=== PATIENT | female | born 1985 | race Caucasian/White ===

== ENCOUNTER → 2016-09-03 | Outpatient (CLI) | payer MEDICAID | LOC: MW.CHUR 11:38 | PROVIDERS: ATTEND Urology | DX: R33.9 Retention of urine, unspecified (principal); R39.15 Urgency of urination | CPT/HCPCS: 81001; 87086 ==

== ENCOUNTER → 2016-09-15 | Outpatient (CLI) | payer MEDICAID | LOC: MW.CHUR 13:10 | PROVIDERS: ATTEND Urology | DX: R32 Unspecified urinary incontinence (principal); R39.15 Urgency of urination | CPT/HCPCS: 81001; 87086 ==

== ENCOUNTER 2016-09-23 06:42 | Observation (INO) | payer MEDICAID ==
[~2016-09-23 06:42] MED LIST: Lactated Ringers 1,000 ML IV SCH; ceFAZolin 2 GM in Premix Bag 1 BAG IV ONE
[2016-09-23] MEDS ORDERED: Lidocaine 2% 5 ML SDV ONE (07:23)
[2016-09-23] MEDS ORDERED: Propofol 200 MG/20 ML SDV ONE (07:23)
[2016-09-23] MEDS ORDERED: fentaNYL 250 MCG/5 ML SDV ONE (07:24)
[2016-09-23] MEDS ORDERED: Midazolam 1 MG/ML 2 ML SDV ONE (07:24)
[2016-09-23] MEDS ORDERED: fentaNYL 100 MCG/2 ML SDV ONE ×2 (07:24→09:55)
[2016-09-23] MEDS ORDERED: Rocuronium 10 MG/ML 10 ML Syringe ONE (07:26)
[2016-09-23] MEDS ORDERED: Ketorolac 30 MG/ML SDV ONE (07:26)
[2016-09-23] MEDS ORDERED: Ondansetron 4 MG/2 ML SDV ONE (07:26)
[2016-09-23] MEDS ORDERED: Neostigmine Methylsulfate 1 MG/ML 5 ML Syringe ONE (07:26)
[2016-09-23] MEDS ORDERED: Scopolamine 1.5 MG Transdermal Patch TRDERM PRN (07:29)
--- NOTE | 2016-09-23 07:29 | PCM.PREANE ---
Preanesthetic Assessment - Anesthesia/Transfusion/Family Hx Anesthesia History: Prior Anesthesia Reaction Type of Anesthesia Reaction: Excessive Nausea/Vomiting Other Type of Anesthesia Reaction Comment: Reports prior history of Nausea with Anesthesia Family History of Anesthesia Reaction: No Transfusion History: No Prior Transfusion(s) - Review of Systems General: No Symptoms Pulmonary: No Symptoms Cardiovascular: No Symptoms Gastrointestinal: No symptoms Neurological: No Symptoms Other: Reports: None - Physical Assessment NPO Status Date: 09/22/16 O2 Sat by Pulse Oximetry: 98 Respiratory Rate: 16 Vital Signs: Last Vital Signs Temp 37.2 C 09/23/16 07:21 Pulse 92 09/23/16 07:21 Resp 16 09/23/16 07:21 BP 110/69 09/23/16 07:21 Pulse Ox 98 09/23/16 07:21 Height: 1.73 m Weight: 90.718 kg ASA Class: 2 Mental Status: Alert & Oriented x3 Airway Class: Mallampati = 2 Dentition: Reports: Normal Dentition ROM/Head Extension: Full Lungs: Clear to auscultation, Normal respiratory effort Cardiovascular: Regular Rate, Regular Rhythm - Allergies Allergies/Adverse Reactions: Allergies Allergy/AdvReac Type Severity Reaction Status Date / Time latex Allergy Severe Hives Verified 05/30/16 14:14 nickel [Nickel] Allergy Severe Rash Verified 05/30/16 14:14 oxycodone [Oxycodone] Allergy Severe Itching Verified 05/30/16 14:14 oxycodone HCl [From Percocet] Allergy Severe Itching Verified 05/30/16 14:14 propoxyphene napsylate Allergy Severe Itching Verified 05/30/16 14:14 [From Darvocet-N 100] terconazole [From Terazol 3] Allergy Severe Swelling Verified 05/30/16 14:14 glatiramer acetate Allergy Hives Verified 05/30/16 14:14 [From Copaxone] morphine Allergy Itching Verified 05/30/16 14:14 tioconazole Allergy Itching Verified 05/30/16 14:14 [From Monistat 1 (tioconazole)] - Blood Blood Available: No - Anesthesia Plan Pre-Op Medication Ordered: Other (scop patch) - Acknowledgements Anesthesia Type Planned: General Anesthesia Pt an Appropriate Candidate for the Planned Anesthesia: Yes Alternatives and Risks of Anesthesia Discussed w Pt/Guardian: Yes Pt/Guardian Understands and Agrees with Anesthesia Plan: Yes Additional Comments: hx of tachyarrythmia, workup revealed episodes of sinus tach, has migraines, and /depression. exercise induced asthma, Does not carry a diagnosis of MS. Has LATEX allergy. 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, Sophia reports history of Exercise Induced Asthma Gastrointestinal History: Reports: None Genitourinary History: Reports: UTI, Recurrent COUNTY ATTORNEY History: Reports: 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, Other OB/BYN History: - 3 Musculoskeletal History: Reports: None Neurological History: Reports: Migraines Psychiatric History: Reports: Anxiety, Depression Endocrine/Metabolic History: Reports: None Hematologic History: Reports: None Immunologic History: Reports: None Oncologic (Cancer) History: Reports: None Dermatologic History: Reports: None - Infectious Disease History Infectious Disease History: Reports: None - Past Surgical History Head Surgeries/Procedures: Reports: None HEENT Surgical History: Reports: Adenoidectomy, Tonsillectomy Cardiovascular Surgical History: Reports: None Other Cardiovascular Surgeries/Procedures: internal heart monitor in on Apr 07 2016 for sinus tachycardia Respiratory Surgical History: Reports: None GI Surgical History: Reports: Appendectomy, Cholecystectomy Other GI Surgeries/Procedures: Lap Cholecystectomy Female Surgical History: Reports: Hysterectomy, LEEP, Other (See Below) Other Female Surgeries/Procedures: "Partial hysterectomy", Bladder mesh surgery x2 Endocrine Surgical History: Reports: None Neurological Surgical History: Reports: None Musculoskeletal Surgical History: Reports: Carpal Tunnel, Other (See Below) Other Musculoskeletal Surgeries/Procedures:: trigger finger rt thumb release, ollie carpal tunnel Oncologic Surgical History: Reports: None Dermatological Surgical History: Reports: None - History Comment History Comment: etoh "2x a year" - SUBSTANCE USE Smoking Status *Q: Never Smoker Second Hand Smoke Exposure: No Days Per Week of Alcohol Use: 0 Number of Drinks Per Day: 0 Total Drinks Per Week: 0 Recreational Drug Use History: No - HOME MEDS Home Medications: Home Meds traZODone HCl [Trazodone HCl] 300 mg PO BEDTIME 12/21/15 [History] Nitrofurantoin Monohyd/M-Cryst [Macrobid 100 mg Capsule] 1 tab PO DAILY PRN [History] Venlafaxine [Effexor] 50 mg PO DAILY 09/18/16 [History] Venlafaxine [Effexor] 225 mg PO DAILY 09/18/16 [History] - CURRENT (IN HOUSE) MEDS Current Meds: Current Medications Lactated Ringer's (Ringers, Lactated) 1,000 mls @ 100 mls/hr IV ASD[facility]RECTED [facility] Last Admin: 09/23/16 07:01 Dose: 100 mls/hr Discontinued Medications Cefazolin Sodium/Dextrose 2 gm (/ Premix) 50 mls @ 100 mls/hr IV ONCALL ONE Stop: 09/23/16 00:34
[2016-09-23] MEDS ORDERED: Gentamicin 40 MG/ML 2 ML Vial ONE (07:42)
[2016-09-23] MEDS ORDERED: Bupivacaine 0.5% 30 ML SDV ONE (07:42)
[2016-09-23] MEDS ORDERED: ePHEDrine 50 MG/ML SDV ONE (09:01)
[2016-09-23] MEDS ORDERED: Lactated Ringers 1,000 ML IV SCH (11:00)
[2016-09-23] MEDS ORDERED: ceFAZolin 1 GM in Premix Bag 1 BAG IV SCH (11:00)
[2016-09-23] MEDS: fentaNYL 100 MCG/2 ML SDV IVPUSH PRN ×4 (11:33→12:16)
[2016-09-23] MEDS ORDERED: HYDROmorphone 2 MG/ML Syringe IVPUSH ONE (11:40)
--- NOTE | 2016-09-23 12:29 | PCM.POSTAN ---
POST ANESTHESIA ASSESSMENT - MENTAL STATUS Mental Status: alert, oriented - RESPIRATORY Respiratory Status: respiratory rate WNL, airway patent, O2 saturation stable - CARDIOVASCULAR CV Status: pulse rate WNL, blood pressure stable - GASTROINTESTINAL GI Status: no symptoms - POST OP HYDRATION Hydration Status: adequate & stable
[2016-09-23] MEDS: Acetaminophen/HYDROcodone 325-10 MG Tab PO PRN ×2 (14:11→21:28)
--- NOTE | 2016-09-23 14:35 | OR ---
SURGEON: Dashawn Lundy M.D. DATE OF PROCEDURE: 09/23/2016 PREOPERATIVE DIAGNOSIS: Recurrent stress urinary incontinence. POSTOPERATIVE DIAGNOSIS: Recurrent stress urinary incontinence. OPERATION: Retropubic bladder neck suspension. DESCRIPTION OF PROCEDURE: The patient was given general anesthesia, placed in the frog-leg position. The lower abdomen, genital area, and the vaginal were all prepped, painted, and draped. A catheter was placed in the bladder. The previous Pfannenstiel incision was opened. The fascia was opened in the midline. The retropubic space was dissected taking extra care not to enter the bladder or damage the urethra. All that appeared as adhesions were taken down. The suspension was done using #1 chromic sutures, three on the right side, one on the left, lessening of the endopelvic fascia and suturing it to the iliopubic tract. The fascia was then closed using a running #1 Maxon suture. The subcutaneous tissues were reapproximated with 3-0 chromic. Skin was closed with 3-0 subcuticular nylon. Cystoscopy was done at the end of the procedure. There were no sutures inside her bladder. Her bladder appears to be in a good and satisfactory position. LETICIA / PEEWEE /[id number]
[2016-09-23] MEDS: ceFAZolin 1 GM in Premix Bag 1 BAG IV SCH ×2 (15:58→23:38)
[2016-09-23] MEDS ORDERED: Acetaminophen/HYDROcodone 325-10 MG Tab PO ONE (17:15)
[2016-09-23] MEDS ORDERED: traZODone 50 MG Tab PO SCH (22:00)
[2016-09-23] MEDS: Acetaminophen 325 MG Tab PO PRN (22:05)
[2016-09-23] MEDS ORDERED: diphenhydrAMINE 50 MG/ML SDV IVPUSH ONE (23:21)
--- NOTE | 2016-09-24 01:07 | PCM48HPAN ---
Post Anesthesia Note - EVALUATION WITHIN 48HRS OF ANESTHETIC Vital Signs in Normal Range: Yes Patient Participated in Evaluation: Yes Respiratory Function Stable: Yes Airway Patent: Yes Cardiovascular Function Stable: Yes Hydration Status Stable: Yes Pain Control Satisfactory: Yes Nausea and Vomiting Control Satisfactory: Yes Mental Status Recovered: Yes
[2016-09-24] MEDS: Acetaminophen/HYDROcodone 325-10 MG Tab PO PRN ×2 (04:38→09:27)
[2016-09-24] MEDS: Acetaminophen 325 MG Tab PO PRN (07:00)
[2016-09-24 08:40] VITALS: BP 101/58
[2016-09-24] MEDS ORDERED: Venlafaxine 75 MG Cap.ER PO SCH (09:00)
[2016-09-24] MEDS ORDERED: diphenhydrAMINE 50 MG Cap PO ONE (10:52)
[2016-09-24] MEDS ORDERED: Ondansetron 4 MG Tab.DIS PO ONE (10:53)
--- NOTE | 2016-09-25 02:29 | DISCH ---
DATE OF DISCHARGE: 09/24/2016 PRIMARY CARE PHYSICIAN: Deja Zavala NP HOSPITAL COURSE: A 30-year-old. She had retropubic bladder neck suspension for persistent urinary incontinence confirmed with Rc test at the office after a failed sling and a failed previous retropubic bladder neck suspension. Evaluation in the office showed minimal residual urine and clear leaking on coughing in both the supine and upright positions. Pushing the neck of the bladder forward without putting pressure on the neck itself stopped the leaking. She had a procedure done yesterday, which she tolerated well. Postoperatively, she did be very well, remained stable. She is sent home on Pyridium to help mitigate the occasional bladder pain. She was sent home on Lorcet 15/325 every 4 to 6 hours as needed for pain and Keflex 500 three times a day for the next 5 days. She will be seen in the office in 6 days. The Cohen catheter will be taken out. In the past, at least the first time after the sling procedure, she engaged in what she described as vigorous sexual activity the same day or the following day, and I suspect that is what caused the failure of the first procedure. She has been instructed at no heavy lifting and no sexual activity for the next 6 weeks. LETICIA / PEEWEE /[id number]
== END 2016-09-24 11:30 | disposition home or self-care (01) ==
LOC: MW.SDS 06:42 → MW.MS 10:40
PROVIDERS: ADMIT Urology; ATTEND Urology
DX: N39.3 Stress incontinence (female) (male) (principal); J45.990 Exercise induced bronchospasm; G43.909 Migraine, unspecified, not intractable, without status migrainosus; F41.9 Anxiety disorder, unspecified; F32.9 Major depressive disorder, single episode, unspecified; Z87.440 Personal history of urinary (tract) infections; Z79.1 Long term (current) use of non-steroidal anti-inflammatories (NSAID); Z79.899 Other long term (current) drug therapy; Z91.040 Latex allergy status; Z88.8 Allergy status to other drugs, medicaments and biological substances; Z88.5 Allergy status to narcotic agent; Z90.49 Acquired absence of other specified parts of digestive tract; Z98.890 Other specified postprocedural states; Z90.710 Acquired absence of both cervix and uterus
CPT/HCPCS: 36415; 51841; 80051; 85025; 96365; 96375; A9270; G0378; J0690; J1200; J1580; J1885; J2250; J2405; J3010; J7120; 00860; J2704

== ENCOUNTER 2016-11-13 03:52 | Emergency (ER) | payer MEDICAID ==
[2016-11-13] MEDS ORDERED: diphenhydrAMINE 50 MG/ML SDV IVPUSH ONE (04:04)
[2016-11-13] MEDS ORDERED: Sodium Chloride 0.9% 1,000 ML IV ONE (04:04)
[2016-11-13] MEDS ORDERED: Ondansetron 4 MG/2 ML SDV IVPUSH ONE (04:04)
[2016-11-13] MEDS ORDERED: Metoclopramide 10 MG/2 ML SDV IVPUSH ONE (04:04)
[2016-11-13] MEDS ORDERED: Ketorolac 30 MG/ML SDV IVPUSH ONE (04:04)
--- NOTE | 2016-11-13 05:34 | EDM.PDOC ---
ED HPI GENERAL MEDICAL PROBLEM - General Chief Complaint: Headache Stated Complaint: HEADACHE Time Seen by Provider: 11/13/16 05:31 - History of Present Illness INITIAL COMMENTS - FREE TEXT/NARRATIVE: HISTORY AND PHYSICAL: History of present illness: Patient states 31-year-old white female with history of migraine headaches presents with concerns of migraine headache patient states she has photophobia nausea denies vomiting denies trauma fever chills or other complaints Review of systems: As per history of present illness and below otherwise all systems reviewed and negative. Past medical history: As per history of present illness and as reviewed below otherwise noncontributory. Surgical history: As per history of present illness and as reviewed below otherwise noncontributory. Social history: No reported history of drug or alcohol abuse. Family history: As per history of present illness and as reviewed below otherwise noncontributory. Physical exam: HEENT: Atraumatic, normocephalic, pupils reactive, negative for conjunctival pallor or scleral icterus, mucous membranes moist, throat clear, neck supple, nontender, trachea midline. Lungs: Clear to auscultation, breath sounds equal bilaterally, chest nontender. Heart: S1S2, regular, negative for clicks, rubs, or JVD. Abdomen: Soft, nondistended, nontender. Negative for masses or hepatosplenomegaly. Negative for costovertebral tenderness. Pelvis: Stable nontender. Genitourinary: Deferred. Rectal: Deferred. Extremities: Atraumatic, negative for cords or calf pain. Neurovascular unremarkable. Neuro: Awake, alert, oriented. Cranial nerves II through XII unremarkable. Cerebellum unremarkable. Motor and sensory unremarkable throughout. Exam nonfocal. Diagnostics: None Therapeutics: Normal saline 1 L bolus Franklin 30 mg IV Zofran 4 mg IV Benadryl 50 mg IV Reglan 10 mg IV Impression: #1 migraine headache Definitive disposition and diagnosis as appropriate pending reevaluation and review of above. Headache Pain Score (Numeric/FACES): 9 - Related Data Allergies Allergy/AdvReac Type Severity Reaction Status Date / Time latex Allergy Severe Hives Verified 11/13/16 03:55 nickel [Nickel] Allergy Severe Rash Verified 11/13/16 03:55 oxycodone [Oxycodone] Allergy Severe Itching Verified 11/13/16 03:55 oxycodone HCl [From Percocet] Allergy Severe Itching Verified 11/13/16 03:55 propoxyphene napsylate Allergy Severe Itching Verified 11/13/16 03:55 [From Darvocet-N 100] terconazole [From Terazol 3] Allergy Severe Swelling Verified 11/13/16 03:55 adhesive tape Allergy Itching Verified 11/13/16 03:55 glatiramer acetate Allergy Hives Verified 11/13/16 03:55 [From Copaxone] morphine Allergy Itching Verified 11/13/16 03:55 tioconazole Allergy Itching Verified 11/13/16 03:55 [From Monistat 1 (tioconazole)] Home Meds: Home Meds traZODone HCl [Trazodone HCl] 300 mg PO BEDTIME 12/21/15 [History] Nitrofurantoin Monohyd/M-Cryst [Macrobid 100 mg Capsule] 1 tab PO DAILY PRN [History] Venlafaxine [Effexor] 225 mg PO DAILY 09/18/16 [History] Past Medical History HEENT History: Reports: Other (See Below) Other HEENT History: Uses eyeglasses. 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, Sophia reports history of Exercise Induced Asthma Gastrointestinal History: Reports: None Genitourinary History: Reports: Urinary Incontinence, UTI, Recurrent [employer] History: Reports: 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, Other OB/BYN History: - 3 Musculoskeletal History: Reports: Arthritis Other Musculoskeletal History: hx: fractre Rt ankle 'hairline', Multiple Sclerosis-is stable, Low back pain Neurological History: Reports: Migraines, MS Other Neuro History: Multiple Sclerosis - 2006 Psychiatric History: Reports: Anxiety, Depression Other Psychiatric History: taking medications Endocrine/Metabolic History: Reports: None Hematologic History: Reports: None Immunologic History: Reports: None Oncologic (Cancer) History: Reports: None Dermatologic History: Reports: None - Infectious Disease History Infectious Disease History: Reports: None - Past Surgical History Other HEENT Surgeries/Procedures: adenoids Other Cardiovascular Surgeries/Procedures: "chest reconstruction" Respiratory Surgical History: Reports: None GI Surgical History: Reports: Appendectomy, Cholecystectomy Other GI Surgeries/Procedures: Lap Cholecystectomy Endocrine Surgical History: Reports: None Musculoskeletal Surgical History: Reports: Other (See Below) Other Musculoskeletal Surgeries/Procedures:: Surgery for trigger fingers, Right trigger thumb repair Oncologic Surgical History: Reports: None Dermatological Surgical History: Reports: None - History Comment History Comment: etoh "2x a year" Social & Family History - Family History Family Medical History: Noncontributory HEENT: Reports: None Cardiac: Reports: None Respiratory: Reports: None GI: Reports: None : Reports: None OBGYN: Reports: None Musculoskeletal: Reports: Back pain, Chronic Neurological: Reports: None Psychiatric: Reports: Anxiety, Depression Endocrine/Metabolic: Reports: None Hematologic: Reports: None Immunologic: Reports: None Dermatologic: Reports: Eczema Oncologic: Reports: Breast, Prostate, Skin - Tobacco Use Smoking Status *Q: Never Smoker Years of Tobacco use: 0 Second Hand Smoke Exposure: No - Alcohol Use Days Per Week of Alcohol Use: 0 Number of Drinks Per Day: 0 Total Drinks Per Week: 0 - Recreational Drug Use Recreational Drug Use: No Drug Use in Last 12 Months: No ED ROS GENERAL - Review of Systems Review Of Systems: ROS reveals no pertinent complaints other than HPI. ED EXAM, GENERAL - Physical Exam Exam: See Below (See dictation) Course - Vital Signs Last Recorded V/S: Last Vital Signs Temp 36.4 C 11/13/16 03:56 Pulse 73 11/13/16 03:56 Resp 18 11/13/16 03:56 BP 129/78 11/13/16 03:56 Pulse Ox 99 11/13/16 03:56 - Orders/Labs/Meds Meds: Medications Discontinued Medications Generic Name Dose Route Start Last Admin Trade Name Bess PRN Reason Stop Dose Admin Diphenhydramine HCl 50 mg 11/13/16 04:04 11/13/16 04:17 Benadryl IVPUSH 11/13/16 04:05 50 mg ONETIME ONE Administration Sodium Chloride 1,000 mls @ 999 mls/hr 11/13/16 04:04 11/13/16 04:13 Normal Saline IV 11/13/16 05:04 999 mls/hr .BOLUS ONE Administration Ketorolac Tromethamine 30 mg 11/13/16 04:04 11/13/16 04:13 Toradol IVPUSH 11/13/16 04:05 30 mg ONETIME ONE Administration Metoclopramide HCl 10 mg 11/13/16 04:04 11/13/16 04:20 Reglan IVPUSH 11/13/16 04:05 10 mg ONETIME ONE Administration Ondansetron HCl 4 mg 11/13/16 04:04 11/13/16 04:15 Zofran IVPUSH 11/13/16 04:05 4 mg ONETIME ONE Administration Departure - Departure Time of Disposition: 05:33 Disposition: Home, Self-Care 01 Condition: Good Clinical Impression: Migraine - Discharge Information Forms: ED Department Discharge Additional Instructions: The following information is given to patients seen in the emergency department who are being discharged to home. This information is to outline your options for follow-up care. We provide all patients seen in our emergency department with a follow-up referral. The need for follow-up, as well as the timing and circumstances, are variable depending upon the specifics of your emergency department visit. If you don't have a primary care physician on staff, we will provide you with a referral. We always advise you to contact your personal physician following an emergency department visit to inform them of the circumstance of the visit and for follow-up with them and/or the need for any referrals to a consulting specialist. The emergency department will also refer you to a specialist when appropriate. This referral assures that you have the opportunity for followup care with a specialist. All of these measure are taken in an effort to provide you with optimal care, which includes your followup. Under all circumstances we always encourage you to contact your private physician who remains a resource for coordinating your care. When calling for followup care, please make the office aware that this follow-up is from your recent emergency room visit. If for any reason you are refused follow-up, please contact the [facility] emergency department at and asked to speak to the emergency department charge nurse. Follow-up primary medical doctor 1-2 days return as needed as discussed
[2016-11-13 05:50] VITALS: BP 102/60
== END 2016-11-13 05:48 | disposition home or self-care (01) ==
LOC: MW.ED 03:52
DX: G43.909 Migraine, unspecified, not intractable, without status migrainosus (principal); J45.909 Unspecified asthma, uncomplicated; M19.90 Unspecified osteoarthritis, unspecified site; F41.9 Anxiety disorder, unspecified; F32.9 Major depressive disorder, single episode, unspecified; G35 Multiple sclerosis; Z90.49 Acquired absence of other specified parts of digestive tract; Z98.890 Other specified postprocedural states; Z79.899 Other long term (current) drug therapy; Z88.5 Allergy status to narcotic agent; Z88.6 Allergy status to analgesic agent; Z88.8 Allergy status to other drugs, medicaments and biological substances; Z91.040 Latex allergy status
CPT/HCPCS: 96361; 96374; 96375; 99283; J1200; J1885; J2405; J2765; J7040; 99282

== ENCOUNTER 2016-11-21 17:01 | Emergency (ER) | payer MEDICAID ==
[2016-11-21] MEDS ORDERED: Lidocaine 1% 20 ML MDV INJECT ONE (17:17)
[2016-11-21] MEDS ORDERED: Bupivacaine 0.5% 10 ML SDV INJECT ONE (17:17)
--- NOTE | 2016-11-21 17:28 | EDM.PDOC ---
ED HPI GENERAL MEDICAL PROBLEM - General Chief Complaint: Laceration Stated Complaint: PT CUT HAND Time Seen by Provider: 11/21/16 17:18 Source of Information: Reports: Patient History Limitations: Reports: No Limitations - History of Present Illness INITIAL COMMENTS - FREE TEXT/NARRATIVE: History of present illness: []Patient was washing dishes and she cut her right hand on a broken glass. She denies any numbness tingling mentation and movement. Review of systems: As per history of present illness and below otherwise all systems reviewed and negative. Past medical history: As per history of present illness and as reviewed below otherwise noncontributory. Surgical history: As per history of present illness and as reviewed below otherwise noncontributory. Social history: No reported history of drug or alcohol abuse. Family history: As per history of present illness and as reviewed below otherwise noncontributory. Physical exam: General: Well developed, well nourished in NAD HEENT: Atraumatic, normocephalic, pupils reactive, negative for conjunctival pallor or scleral icterus, mucous membranes moist, throat clear, neck supple, nontender, trachea midline. Lungs: Clear to auscultation, breath sounds equal bilaterally, chest nontender. Heart: S1S2, regular, negative for clicks, rubs, or JVD. Abdomen: Soft, nondistended, nontender. Negative for masses or hepatosplenomegaly. Negative for costovertebral tenderness. Pelvis: Stable nontender. Genitourinary: Deferred. Rectal: Deferred. Extremities: 1 cm semicircular laceration on the dorsal part of the hand in between her index and middle finger no active bleeding, negative for cords or calf pain. Neurovascular unremarkable. Neuro: Awake, alert, oriented. Cranial nerves II through XII unremarkable. Cerebellum unremarkable. Motor and sensory unremarkable throughout. Exam nonfocal. Diagnostics: []Right hand laceration Therapeutics: []Wound sutured Impression: []Right hand laceration Plan: []Sutures out in 7-10 days, ice and elevation Tylenol for pain return if any symptoms worsen including redness swelling or fevers. Definitive disposition and diagnosis as appropriate pending reevaluation and review of above. - Related Data Allergies Allergy/AdvReac Type Severity Reaction Status Date / Time latex Allergy Severe Hives Verified 11/13/16 03:55 nickel [Nickel] Allergy Severe Rash Verified 11/13/16 03:55 oxycodone [Oxycodone] Allergy Severe Itching Verified 11/13/16 03:55 oxycodone HCl [From Percocet] Allergy Severe Itching Verified 11/13/16 03:55 propoxyphene napsylate Allergy Severe Itching Verified 11/13/16 03:55 [From Darvocet-N 100] terconazole [From Terazol 3] Allergy Severe Swelling Verified 11/13/16 03:55 adhesive tape Allergy Itching Verified 11/13/16 03:55 glatiramer acetate Allergy Hives Verified 11/13/16 03:55 [From Copaxone] morphine Allergy Itching Verified 11/13/16 03:55 tioconazole Allergy Itching Verified 11/13/16 03:55 [From Monistat 1 (tioconazole)] Home Meds: Home Meds traZODone HCl [Trazodone HCl] 300 mg PO BEDTIME 12/21/15 [History] Nitrofurantoin Monohyd/M-Cryst [Macrobid 100 mg Capsule] 1 tab PO DAILY PRN [History] Venlafaxine [Effexor] 225 mg PO DAILY 09/18/16 [History] Past Medical History HEENT History: Reports: Other (See Below) Other HEENT History: Uses eyeglasses. 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, Sophia reports history of Exercise Induced Asthma Gastrointestinal History: Reports: None Genitourinary History: Reports: Urinary Incontinence, UTI, Recurrent [employer] History: Reports: 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, Other OB/BYN History: - 3 Musculoskeletal History: Reports: Arthritis Other Musculoskeletal History: hx: fractre Rt ankle 'hairline', Multiple Sclerosis-is stable, Low back pain Neurological History: Reports: Migraines, MS Other Neuro History: Multiple Sclerosis - 2006 Psychiatric History: Reports: Anxiety, Depression Other Psychiatric History: taking medications Endocrine/Metabolic History: Reports: None Hematologic History: Reports: None Immunologic History: Reports: None Oncologic (Cancer) History: Reports: None Dermatologic History: Reports: None - Infectious Disease History Infectious Disease History: Reports: None - Past Surgical History Other HEENT Surgeries/Procedures: adenoids Other Cardiovascular Surgeries/Procedures: "chest reconstruction" Respiratory Surgical History: Reports: None GI Surgical History: Reports: Appendectomy, Cholecystectomy Other GI Surgeries/Procedures: Lap Cholecystectomy Endocrine Surgical History: Reports: None Musculoskeletal Surgical History: Reports: Other (See Below) Other Musculoskeletal Surgeries/Procedures:: Surgery for trigger fingers, Right trigger thumb repair Oncologic Surgical History: Reports: None Dermatological Surgical History: Reports: None - History Comment History Comment: etoh "2x a year" Social & Family History - Family History Family Medical History: Noncontributory HEENT: Reports: None Cardiac: Reports: None Respiratory: Reports: None GI: Reports: None : Reports: None OBGYN: Reports: None Musculoskeletal: Reports: Back pain, Chronic Neurological: Reports: None Psychiatric: Reports: Anxiety, Depression Endocrine/Metabolic: Reports: None Hematologic: Reports: None Immunologic: Reports: None Dermatologic: Reports: Eczema Oncologic: Reports: Breast, Prostate, Skin - Tobacco Use Smoking Status *Q: Never Smoker Years of Tobacco use: 0 Second Hand Smoke Exposure: No - Alcohol Use Days Per Week of Alcohol Use: 0 Number of Drinks Per Day: 0 Total Drinks Per Week: 0 - Recreational Drug Use Recreational Drug Use: No Drug Use in Last 12 Months: No ED ROS GENERAL - Review of Systems Review Of Systems: See Below (See history of present illness) ED EXAM, SKIN/RASH Exam: See Below (See history of present illness) Course - Orders/Labs/Meds Orders: Active Orders 24 hr Category Date Time Status Bupivacaine 0.5% [Sensorcaine-MPF 0.5%] Med 11/21/16 17:17 Once 10 ml INJECT ONETIME ONE Lidocaine 1% [Xylocaine 1%] Med 11/21/16 17:17 Once 20 ml INJECT ONETIME ONE Medication Orders Bupivacaine HCl (Sensorcaine-Mpf 0.5%) 10 ml INJECT ONETIME ONE Stop: 11/21/16 17:18 Meds: Medications Generic Name Dose Route Start Last Admin Trade Name Freq PRN Reason Stop Dose Admin Bupivacaine HCl 10 ml 11/21/16 17:17 Sensorcaine-Mpf 0.5% INJECT 11/21/16 17:18 ONETIME ONE Departure - Departure Time of Disposition: 17:38 Disposition: Home, Self-Care 01 Condition: Good Clinical Impression: Laceration of right hand Qualifiers: Encounter type: initial encounter Foreign body presence: without foreign body Qualified Code(s): S61.411A - Laceration without foreign body of right hand, initial encounter - Discharge Information Forms: ED Department Discharge Additional Instructions: The following information is given to patients seen in the emergency department who are being discharged to home. This information is to outline your options for follow-up care. We provide all patients seen in our emergency department with a follow-up referral. The need for follow-up, as well as the timing and circumstances, are variable depending upon the specifics of your emergency department visit. If you don't have a primary care physician on staff, we will provide you with a referral. We always advise you to contact your personal physician following an emergency department visit to inform them of the circumstance of the visit and for follow-up with them and/or the need for any referrals to a consulting specialist. The emergency department will also refer you to a specialist when appropriate. This referral assures that you have the opportunity for follow-up care with a specialist. All of these measure are taken in an effort to provide you with optimal care, which includes your follow-up. Under all circumstances we always encourage you to contact your private physician who remains a resource for coordinating your care. When calling for follow-up care, please make the office aware that this follow-up is from your recent emergency room visit. If for any reason you are refused follow-up, please contact the [facility] Emergency Department at and asked to speak to the emergency department charge nurse. Sutures out in 7-10 days, keep dry for 24 hours, ice elevation and Tylenol for pain, return if any redness swelling or fevers occur [facility] [address] [place] [id number] - My Orders Last 24 Hours: My Active Orders 11/21/16 17:17 Bupivacaine 0.5% [Sensorcaine-MPF 0.5%] 10 ml INJECT ONETIME ONE Lidocaine 1% [Xylocaine 1%] 20 ml INJECT ONETIME ONE - Assessment/Plan Last 24 Hours: My Active Orders 11/21/16 17:17 Bupivacaine 0.5% [Sensorcaine-MPF 0.5%] 10 ml INJECT ONETIME ONE Lidocaine 1% [Xylocaine 1%] 20 ml INJECT ONETIME ONE
[2016-11-21] MEDS ORDERED: Bacitracin Oint 1 GM U/D Packet TOP ONE (17:35)
[2016-11-21 18:15] VITALS: BP 139/72
== END 2016-11-21 18:09 | disposition home or self-care (01) ==
LOC: MW.ED 17:01
DX: S61.411A Laceration without foreign body of right hand, initial encounter (principal); Z88.6 Allergy status to analgesic agent; Z91.040 Latex allergy status; Z88.5 Allergy status to narcotic agent; Z79.899 Other long term (current) drug therapy; J45.909 Unspecified asthma, uncomplicated; Z87.440 Personal history of urinary (tract) infections; Z90.49 Acquired absence of other specified parts of digestive tract; W25.XXXA Contact with sharp glass, initial encounter
CPT/HCPCS: 12001; 99282

== ENCOUNTER 2016-12-27 18:06 | Emergency (ER) | payer MEDICAID ==
--- NOTE | 2016-12-27 18:43 | EDM.PDOC ---
ED HPI GENERAL MEDICAL PROBLEM - General Chief Complaint: Respiratory Problem Stated Complaint: COUGH/RUNNY NOSE/TIGHTNESS CHEST Time Seen by Provider: 12/27/16 18:13 - History of Present Illness INITIAL COMMENTS - FREE TEXT/NARRATIVE: HISTORY AND PHYSICAL: History of present illness: Patient 31-year-old female presents with concern of sore throat, cough congestion sinus drainage over last today she denies fever chills nausea vomiting she denies shortness of breath. Review of systems: As per history of present illness and below otherwise all systems reviewed and negative. Past medical history: As per history of present illness and as reviewed below otherwise noncontributory. Surgical history: As per history of present illness and as reviewed below otherwise noncontributory. Social history: No reported history of drug or alcohol abuse. Family history: As per history of present illness and as reviewed below otherwise noncontributory. Physical exam: HEENT: Atraumatic, normocephalic, pupils reactive, negative for conjunctival pallor or scleral icterus, mucous membranes moist, throat clear, neck supple, nontender, trachea midline. Lungs: Clear to auscultation, breath sounds equal bilaterally, chest nontender. Heart: S1S2, regular, negative for clicks, rubs, or JVD. Abdomen: Soft, nondistended, nontender. Negative for masses or hepatosplenomegaly. Negative for costovertebral tenderness. Pelvis: Stable nontender. Genitourinary: Deferred. Rectal: Deferred. Extremities: Atraumatic, negative for cords or calf pain. Neurovascular unremarkable. Neuro: Awake, alert, oriented. Cranial nerves II through XII unremarkable. Cerebellum unremarkable. Motor and sensory unremarkable throughout. Exam nonfocal. Diagnostics: Chest x-ray rapid strep Therapeutics: None Impression: #1 sinusitis Definitive disposition and diagnosis as appropriate pending reevaluation and review of above. - Related Data Allergies Allergy/AdvReac Type Severity Reaction Status Date / Time latex Allergy Severe Hives Verified 12/27/16 18:38 nickel [Nickel] Allergy Severe Rash Verified 12/27/16 18:38 oxycodone [Oxycodone] Allergy Severe Itching Verified 12/27/16 18:38 oxycodone HCl [From Percocet] Allergy Severe Itching Verified 12/27/16 18:38 propoxyphene napsylate Allergy Severe Itching Verified 12/27/16 18:38 [From Darvocet-N 100] terconazole [From Terazol 3] Allergy Severe Swelling Verified 12/27/16 18:38 adhesive tape Allergy Itching Verified 12/27/16 18:38 glatiramer acetate Allergy Hives Verified 12/27/16 18:38 [From Copaxone] morphine Allergy Itching Verified 12/27/16 18:38 tioconazole Allergy Itching Verified 12/27/16 18:38 [From Monistat 1 (tioconazole)] Home Meds: Home Meds traZODone HCl [Trazodone HCl] 600 mg PO BEDTIME 12/21/15 [History] Ondansetron [Zofran ODT] 4 mg PO ONETIME 11/21/16 [History] Pantoprazole Sodium [Protonix] 20 mg PO DAILY 11/21/16 [History] SUMAtriptan [Imitrex] 1 tab PO ASDIRECTED 11/21/16 [History] traMADol [Ultram] 50 mg PO ONETIME 11/21/16 [History] Past Medical History HEENT History: Reports: Other (See Below) Other HEENT History: Uses eyeglasses. 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, Sophia reports history of Exercise Induced Asthma Gastrointestinal History: Reports: None Genitourinary History: Reports: Urinary Incontinence, UTI, Recurrent [employer] History: Reports: 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, Other OB/BYN History: - 3 Musculoskeletal History: Reports: Arthritis Other Musculoskeletal History: hx: fractre Rt ankle 'hairline', Multiple Sclerosis-is stable, Low back pain Neurological History: Reports: Migraines, MS Other Neuro History: Multiple Sclerosis - 2006 Psychiatric History: Reports: Anxiety, Depression Other Psychiatric History: taking medications Endocrine/Metabolic History: Reports: None Hematologic History: Reports: None Immunologic History: Reports: None Oncologic (Cancer) History: Reports: None Dermatologic History: Reports: None - Infectious Disease History Infectious Disease History: Reports: None - Past Surgical History Other HEENT Surgeries/Procedures: adenoids Other Cardiovascular Surgeries/Procedures: "chest reconstruction" Respiratory Surgical History: Reports: None GI Surgical History: Reports: Appendectomy, Cholecystectomy Other GI Surgeries/Procedures: Lap Cholecystectomy Endocrine Surgical History: Reports: None Musculoskeletal Surgical History: Reports: Other (See Below) Other Musculoskeletal Surgeries/Procedures:: Surgery for trigger fingers, Right trigger thumb repair Oncologic Surgical History: Reports: None Dermatological Surgical History: Reports: None - History Comment History Comment: etoh "2x a year" Social & Family History - Family History Family Medical History: Noncontributory HEENT: Reports: None Cardiac: Reports: None Respiratory: Reports: None GI: Reports: None : Reports: None OBGYN: Reports: None Musculoskeletal: Reports: Back pain, Chronic Neurological: Reports: None Psychiatric: Reports: Anxiety, Depression Endocrine/Metabolic: Reports: None Hematologic: Reports: None Immunologic: Reports: None Dermatologic: Reports: Eczema Oncologic: Reports: Breast, Prostate, Skin - Tobacco Use Smoking Status *Q: Never Smoker Years of Tobacco use: 0 Second Hand Smoke Exposure: No - Caffeine Use Caffeine Use: Reports: None - Alcohol Use Days Per Week of Alcohol Use: 0 Number of Drinks Per Day: 0 Total Drinks Per Week: 0 - Recreational Drug Use Recreational Drug Use: No Drug Use in Last 12 Months: No ED ROS GENERAL - Review of Systems Review Of Systems: ROS reveals no pertinent complaints other than HPI. ED EXAM, GENERAL - Physical Exam Exam: See Below (See dictation) Course - Vital Signs Last Recorded V/S: Last Vital Signs Temp 36.4 C 12/27/16 18:33 Pulse 98 12/27/16 18:33 Resp 18 12/27/16 18:33 BP 115/76 12/27/16 18:33 Pulse Ox - Orders/Labs/Meds Orders: Active Orders 24 hr Category Date Time Status Chest 2V [CR] Stat Exams 12/27/16 18:41 Ordered STREP SCRN A RAPID W CULT CONF [RM] Stat Lab 12/27/16 18:41 Uncollected Departure - Departure Time of Disposition: 18:42 Disposition: Home, Self-Care 01 Condition: Good Clinical Impression: Sinusitis - Discharge Information Referrals: Shelbi Good DO [Primary Care Provider] - Additional Instructions: The following information is given to patients seen in the emergency department who are being discharged to home. This information is to outline your options for follow-up care. We provide all patients seen in our emergency department with a follow-up referral. The need for follow-up, as well as the timing and circumstances, are variable depending upon the specifics of your emergency department visit. If you don't have a primary care physician on staff, we will provide you with a referral. We always advise you to contact your personal physician following an emergency department visit to inform them of the circumstance of the visit and for follow-up with them and/or the need for any referrals to a consulting specialist. The emergency department will also refer you to a specialist when appropriate. This referral assures that you have the opportunity for followup care with a specialist. All of these measure are taken in an effort to provide you with optimal care, which includes your followup. Under all circumstances we always encourage you to contact your private physician who remains a resource for coordinating your care. When calling for followup care, please make the office aware that this follow-up is from your recent emergency room visit. If for any reason you are refused follow-up, please contact the [facility] emergency department at and asked to speak to the emergency department charge nurse. Follow primary medical doctor 1-2 days his azithromycin as prescribed Motrin/ Tylenol as directed and return as needed as discussed - My Orders Last 24 Hours: My Active Orders 12/27/16 18:41 Chest 2V [CR] Stat STREP SCRN A RAPID W CULT CONF [RM] Stat - Assessment/Plan Last 24 Hours: My Active Orders 12/27/16 18:41 Chest 2V [CR] Stat STREP SCRN A RAPID W CULT CONF [RM] Stat
[2016-12-27 19:43] VITALS: BP 111/73
--- NOTE | 2016-12-29 12:20 | CR ---
EXAM DATE: 12/27/16 PATIENT'S AGE: 31 Patient: HALEY ROGERS Facility: [place], [place] Site . Site : 1985 Study: XRay Chest [id number]/26/[id number] 7:23:15 PM Ordering Physician: Demetria Barboza Final Report: HISTORY: Cough. TECHNIQUE: Two views of the chest. COMPARISON: No prior. FINDINGS: Cardiac size within normal limits. No pulmonary vascular redistribution. No consolidation or pulmonary edema. No pneumothorax or pleural effusion. Surgical clips within the right upper quadrant. Small electronic device projects over the soft tissues of left anterior chest. IMPRESSION: No acute cardiopulmonary disease. Dictated by Saji Cruz MD @ 12/27/2016 7:30:04 PM Dictated by: Saji Cruz MD @ 12/27/2016 19:30:08 (Electronic Signature) Report Signed by Proxy. STEFANIE
== END 2016-12-27 19:42 | disposition home or self-care (01) ==
LOC: MW.ED 18:06
DX: J32.9 Chronic sinusitis, unspecified (principal); J45.909 Unspecified asthma, uncomplicated; F41.9 Anxiety disorder, unspecified; F32.9 Major depressive disorder, single episode, unspecified; Z91.040 Latex allergy status; Z88.5 Allergy status to narcotic agent; Z88.8 Allergy status to other drugs, medicaments and biological substances; Z79.899 Other long term (current) drug therapy; Z87.440 Personal history of urinary (tract) infections; Z90.49 Acquired absence of other specified parts of digestive tract
CPT/HCPCS: 71020; 71020-26; 87081; 87880; 99283; 99284

== ENCOUNTER 2017-02-01 23:12 | Emergency (ER) | payer MEDICAID ==
[2017-02-02] MEDS ORDERED: Ibuprofen 800 MG Tab PO ONE (00:21)
--- NOTE | 2017-02-02 00:21 | EDM.PDOC ---
ED HPI GENERAL MEDICAL PROBLEM - General Stated Complaint: HURT ANKLE Time Seen by Provider: 02/01/17 23:30 Source of Information: Reports: Patient, Family History Limitations: Reports: No Limitations - History of Present Illness INITIAL COMMENTS - FREE TEXT/NARRATIVE: HISTORY AND PHYSICAL: History of present illness: [31-year-old female came to the emergency department complaining of left foot pain after a heavy shampoo bottle fell on her foot. She was showering the bottle fell struck the top of her foot it's been sore and painful since. Patient describes discomfort with movement of the foot as well as walking no ankle pain no other injury] Review of systems: As per history of present illness and below otherwise all systems reviewed and negative. Past medical history: As per history of present illness and as reviewed below otherwise noncontributory. Surgical history: As per history of present illness and as reviewed below otherwise noncontributory. Social history: No reported history of drug or alcohol abuse. Family history: As per history of present illness and as reviewed below otherwise noncontributory. Physical exam: Well-appearing patient no acute distress mild soft tissue tenderness dorsum left foot no bony tenderness ecchymosis soft tissue swelling hematoma. Nontender ankle with normal painless range of motion remainder exam is benign HEENT: Normocephalic, atraumatic, pupils normal and symmetrical, supple neck, no meningismus, normal color Lungs: Normal and symmetrical chest wall excursion bilateral with no tachypnea or increased work of breathing, grossly normal chest exam Heart: No tachycardia in triage Abdomen: Normal-appearing, nondistended, no visible mass or asymmetry Pelvis: Normal-appearing Genitourinary: Deferred Rectal exam: Deferred Extremities: Atraumatic, normal use and range of motion, no visible evidence of gross neurovascular compromise Neuro: Awake, alert, oriented. Normal and appropriate mental status. Cranial nerves grossly unremarkable. Motor function normal. Nonfocal neurologic exam. Diagnostics: [X-ray of left foot negative for fracture or dislocation interpreted by me report reviewed] Therapeutics: [Ibuprofen by mouth] Impression: [] Plan: [Signs and symptoms consistent with contusion confirmed by x-ray. Patient aware to take NSAIDs and Tylenol as needed rest ice elevate follow-up with PCP as needed.] Definitive disposition and diagnosis as appropriate pending reevaluation and review of above. Left Ankle Pain Score (Numeric/FACES): 7 - Related Data Allergies Allergy/AdvReac Type Severity Reaction Status Date / Time latex Allergy Severe Hives Verified 12/27/16 18:38 nickel [Nickel] Allergy Severe Rash Verified 12/27/16 18:38 oxycodone [Oxycodone] Allergy Severe Itching Verified 12/27/16 18:38 oxycodone HCl [From Percocet] Allergy Severe Itching Verified 12/27/16 18:38 propoxyphene napsylate Allergy Severe Itching Verified 12/27/16 18:38 [From Darvocet-N 100] terconazole [From Terazol 3] Allergy Severe Swelling Verified 12/27/16 18:38 adhesive tape Allergy Itching Verified 12/27/16 18:38 glatiramer acetate Allergy Hives Verified 12/27/16 18:38 [From Copaxone] morphine Allergy Itching Verified 12/27/16 18:38 sumatriptan [From Imitrex] Allergy Itching Verified 02/01/17 23:35 tioconazole Allergy Itching Verified 12/27/16 18:38 [From Monistat 1 (tioconazole)] Home Meds: Home Meds traZODone HCl [Trazodone HCl] 600 mg PO BEDTIME 12/21/15 [History] traMADol [Ultram] 50 mg PO ONETIME 11/21/16 [History] Lorcaserin HCl [Belviq] 10 mg PO DAILY 02/01/17 [History] Past Medical History HEENT History: Reports: Other (See Below) Other HEENT History: Uses eyeglasses. 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, Sophia reports history of Exercise Induced Asthma Gastrointestinal History: Reports: None Genitourinary History: Reports: Urinary Incontinence, UTI, Recurrent [employer] History: Reports: 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, Other OB/BYN History: - 3 Musculoskeletal History: Reports: Arthritis Other Musculoskeletal History: hx: fractre Rt ankle 'hairline', Multiple Sclerosis-is stable, Low back pain Neurological History: Reports: Migraines, MS Other Neuro History: Multiple Sclerosis - 2006 Psychiatric History: Reports: Anxiety, Depression Other Psychiatric History: taking medications Endocrine/Metabolic History: Reports: None Hematologic History: Reports: None Immunologic History: Reports: None Oncologic (Cancer) History: Reports: None Dermatologic History: Reports: None - Infectious Disease History Infectious Disease History: Reports: None - Past Surgical History HEENT Surgical History: Reports: Tonsillectomy Other HEENT Surgeries/Procedures: adenoids Cardiovascular Surgical History: Reports: Other (See Below) Other Cardiovascular Surgeries/Procedures: "chest reconstruction" Respiratory Surgical History: Reports: None GI Surgical History: Reports: Appendectomy, Cholecystectomy Other GI Surgeries/Procedures: Lap Cholecystectomy Female Surgical History: Reports: Other (See Below) Other Female Surgeries/Procedures: bladder mesh Endocrine Surgical History: Reports: None Musculoskeletal Surgical History: Reports: Carpal Tunnel, Other (See Below) Other Musculoskeletal Surgeries/Procedures:: Surgery for trigger fingers, Right trigger thumb repair Oncologic Surgical History: Reports: None Dermatological Surgical History: Reports: None - History Comment History Comment: etoh "2x a year" Social & Family History - Family History Family Medical History: Noncontributory HEENT: Reports: None Cardiac: Reports: None Respiratory: Reports: None GI: Reports: None : Reports: None OBGYN: Reports: None Musculoskeletal: Reports: Back pain, Chronic Neurological: Reports: None Psychiatric: Reports: Anxiety, Depression Endocrine/Metabolic: Reports: None Hematologic: Reports: None Immunologic: Reports: None Dermatologic: Reports: Eczema Oncologic: Reports: Breast, Prostate, Skin - Tobacco Use Smoking Status *Q: Never Smoker Years of Tobacco use: 0 Second Hand Smoke Exposure: No - Caffeine Use Caffeine Use: Reports: Coffee, Soda - Alcohol Use Days Per Week of Alcohol Use: 0 Number of Drinks Per Day: 0 Total Drinks Per Week: 0 - Recreational Drug Use Recreational Drug Use: No Drug Use in Last 12 Months: No ED ROS GENERAL - Review of Systems Review Of Systems: See Below (History of present illness) ED EXAM, GENERAL - Physical Exam Exam: See Below (History of present illness) Course - Vital Signs Last Recorded V/S: Last Vital Signs Temp 36.7 C 02/01/17 23:22 Pulse 86 02/01/17 23:22 Resp 16 02/01/17 23:22 BP 114/74 02/01/17 23:22 Pulse Ox 97 02/01/17 23:22 - Orders/Labs/Meds Orders: Active Orders 24 hr Category Date Time Status Foot 2V Lt [CR] Stat Exams 02/01/17 23:22 Stop Req Foot Comp Min 3V Lt [CR] Stat Exams 02/01/17 23:27 Ordered Departure - Departure Time of Disposition: 00:18 Disposition: Home, Self-Care 01 Condition: Good Clinical Impression: Contusion of left foot - Discharge Information Referrals: Shelbi Good DO [Primary Care Provider] - Additional Instructions: You have a contusion or bruise of your left foot. It will be sore while it resolves. You may experience some skin changes with the injured area possibly getting "black and blue." Rest, apply ice whenever possible for the first one to 2 days, and elevate above your heart to minimize swelling and associated discomfort. Take 800 mg of ibuprofen every 6 hours and take Tylenol as well if needed for pain. Follow-up with your doctor in 2-3 days if necessary. - My Orders Last 24 Hours: My Active Orders 02/01/17 23:22 Foot 2V Lt [CR] Stat 02/01/17 23:27 Foot Comp Min 3V Lt [CR] Stat - Assessment/Plan Last 24 Hours: My Active Orders 02/01/17 23:22 Foot 2V Lt [CR] Stat 02/01/17 23:27 Foot Comp Min 3V Lt [CR] Stat
[2017-02-02 00:57] VITALS: BP 120/75
--- NOTE | 2017-02-02 15:46 | CR ---
EXAM DATE: 02/01/17 PATIENT'S AGE: 31 Patient: HALEY ROGERS Facility: [place], [place] Site . Site : 1985 Study: XRay Extremity Left [id number] 11:54:40 PM Ordering Physician: Ambrosio Barboza Final Report: INDICATION: INJURY OBJECT FELL ON FOOT TECHNIQUE: Three views of the left foot COMPARISON: November 17, 2008 FINDINGS: Bones: Bipartite tibial sesamoid. No fractures or bone lesions. Joint spaces: Unremarkable. Soft tissues: Unremarkable. IMPRESSION: No acute bony abnormality Dictated by Cem Maldonado MD @ 02/02/2017 12:01:29 AM Dictated by: Cem Maldonado MD @ 02/02/2017 00:01:48 (Electronic Signature) Report Signed by Proxy. [facility]
== END 2017-02-02 00:35 | disposition home or self-care (01) ==
LOC: MW.ED 23:12
DX: S90.32XA Contusion of left foot, initial encounter (principal); J45.909 Unspecified asthma, uncomplicated; Z91.040 Latex allergy status; Z88.5 Allergy status to narcotic agent; Z79.899 Other long term (current) drug therapy; Z87.440 Personal history of urinary (tract) infections; Z90.49 Acquired absence of other specified parts of digestive tract; W20.8XXA Other cause of strike by thrown, projected or falling object, initial encounter
CPT/HCPCS: 73630; 99283; A9270

== ENCOUNTER 2017-05-21 11:51 | Emergency (ER) | payer MEDICAID ==
[2017-05-21] MEDS ORDERED: Albuterol/Ipratropium 3.0-0.5 MG/3 ML Neb Soln NEB ONE (12:07)
--- NOTE | 2017-05-21 12:07 | EDM.PDOC ---
ED HPI GENERAL MEDICAL PROBLEM - General Chief Complaint: Respiratory Problem Stated Complaint: COLD/COUGH Time Seen by Provider: 05/21/17 12:02 - History of Present Illness INITIAL COMMENTS - FREE TEXT/NARRATIVE: HISTORY AND PHYSICAL: History of present illness: Patient 31-year-old female presents with a concern of cough and wheezing patient was exposed recent influenza and is on Tamiflu currently. She's felt feverish and chilled. Review of systems: As per history of present illness and below otherwise all systems reviewed and negative. Past medical history: As per history of present illness and as reviewed below otherwise noncontributory. Surgical history: As per history of present illness and as reviewed below otherwise noncontributory. Social history: No reported history of drug or alcohol abuse. Family history: As per history of present illness and as reviewed below otherwise noncontributory. Physical exam: HEENT: Atraumatic, normocephalic, pupils reactive, negative for conjunctival pallor or scleral icterus, mucous membranes moist, throat clear, neck supple, nontender, trachea midline. Lungs: Slightly coarse reran expiratory wheezing noted, breath sounds equal bilaterally, chest nontender. Heart: S1S2, regular, negative for clicks, rubs, or JVD. Abdomen: Soft, nondistended, nontender. Negative for masses or hepatosplenomegaly. Negative for costovertebral tenderness. Pelvis: Stable nontender. Genitourinary: Deferred. Rectal: Deferred. Extremities: Atraumatic, negative for cords or calf pain. Neurovascular unremarkable. Neuro: Awake, alert, oriented. Cranial nerves II through XII unremarkable. Cerebellum unremarkable. Motor and sensory unremarkable throughout. Exam nonfocal. Diagnostics: Influenza screen Therapeutics: Albuterol ipratropium nebulizer Impression: #1 viral syndrome #2 history of asthma with bronchospasm Definitive disposition and diagnosis as appropriate pending reevaluation and review of above. - Related Data Allergies Allergy/AdvReac Type Severity Reaction Status Date / Time latex Allergy Severe Hives Verified 05/21/17 12:02 nickel [Nickel] Allergy Severe Rash Verified 05/21/17 12:02 oxycodone [Oxycodone] Allergy Severe Itching Verified 05/21/17 12:02 oxycodone HCl [From Percocet] Allergy Severe Itching Verified 05/21/17 12:02 propoxyphene napsylate Allergy Severe Itching Verified 05/21/17 12:02 [From Darvocet-N 100] terconazole [From Terazol 3] Allergy Severe Swelling Verified 05/21/17 12:02 adhesive tape Allergy Itching Verified 05/21/17 12:02 glatiramer acetate Allergy Hives Verified 05/21/17 12:02 [From Copaxone] morphine Allergy Itching Verified 05/21/17 12:02 sumatriptan [From Imitrex] Allergy Itching Verified 05/21/17 12:02 tioconazole Allergy Itching Verified 05/21/17 12:02 [From Monistat 1 (tioconazole)] Home Meds: Home Meds traZODone HCl [Trazodone HCl] 300 mg PO BEDTIME 12/21/15 [History] traMADol [Ultram] 50 mg PO ASDIRECTED PRN 11/21/16 [History] Lorcaserin HCl [Belviq] 10 mg PO DAILY 02/01/17 [History] Past Medical History HEENT History: Reports: Other (See Below) Other HEENT History: Uses eyeglasses. 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, Sophia reports history of Exercise Induced Asthma Gastrointestinal History: Reports: None Genitourinary History: Reports: Urinary Incontinence, UTI, Recurrent [employer] History: Reports: 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, Other OB/BYN History: - 3 Musculoskeletal History: Reports: Arthritis Other Musculoskeletal History: hx: fractre Rt ankle 'hairline', Multiple Sclerosis-is stable, Low back pain Neurological History: Reports: Migraines, MS Other Neuro History: Multiple Sclerosis - 2006 Psychiatric History: Reports: Anxiety, Depression Other Psychiatric History: taking medications Endocrine/Metabolic History: Reports: None Hematologic History: Reports: None Immunologic History: Reports: None Oncologic (Cancer) History: Reports: None Dermatologic History: Reports: None - Infectious Disease History Infectious Disease History: Reports: Chicken Pox - Past Surgical History HEENT Surgical History: Reports: Tonsillectomy Other HEENT Surgeries/Procedures: adenoids Cardiovascular Surgical History: Reports: Other (See Below) Other Cardiovascular Surgeries/Procedures: "chest reconstruction" Respiratory Surgical History: Reports: None GI Surgical History: Reports: Appendectomy, Cholecystectomy Other GI Surgeries/Procedures: Lap Cholecystectomy Female Surgical History: Reports: Other (See Below) Other Female Surgeries/Procedures: bladder mesh Endocrine Surgical History: Reports: None Musculoskeletal Surgical History: Reports: Carpal Tunnel, Other (See Below) Other Musculoskeletal Surgeries/Procedures:: Surgery for trigger fingers, Right trigger thumb repair Oncologic Surgical History: Reports: None Dermatological Surgical History: Reports: None - History Comment History Comment: etoh "2x a year" Social & Family History - Family History Family Medical History: Noncontributory HEENT: Reports: None Cardiac: Reports: None Respiratory: Reports: None GI: Reports: None : Reports: None OBGYN: Reports: None Musculoskeletal: Reports: Back pain, Chronic Neurological: Reports: None Psychiatric: Reports: Anxiety, Depression Endocrine/Metabolic: Reports: None Hematologic: Reports: None Immunologic: Reports: None Dermatologic: Reports: Eczema Oncologic: Reports: Breast, Prostate, Skin - Tobacco Use Smoking Status *Q: Never Smoker Years of Tobacco use: 0 Second Hand Smoke Exposure: No - Caffeine Use Caffeine Use: Reports: Coffee, Soda - Alcohol Use Days Per Week of Alcohol Use: 0 Number of Drinks Per Day: 0 Total Drinks Per Week: 0 - Recreational Drug Use Recreational Drug Use: No Drug Use in Last 12 Months: No ED ROS GENERAL - Review of Systems Review Of Systems: ROS reveals no pertinent complaints other than HPI. ED EXAM, GENERAL - Physical Exam Exam: See Below (See dictation) Course - Vital Signs Last Recorded V/S: Last Vital Signs Temp 36.7 C 05/21/17 12:00 Pulse 128 H 05/21/17 12:00 Resp 18 05/21/17 12:00 BP 122/85 05/21/17 12:00 Pulse Ox 97 05/21/17 12:00 - Orders/Labs/Meds Orders: Active Orders 24 hr Category Date Time Status RT Aerosol Therapy [RC] ASDIRECTED Care 05/21/17 12:07 Active Meds: Medications Discontinued Medications Generic Name Dose Route Start Last Admin Trade Name Freq PRN Reason Stop Dose Admin Albuterol/Ipratropium 3 ml 05/21/17 12:07 05/21/17 12:35 Duoneb 3.0-0.5 Mg/3 Ml NEB 05/21/17 12:08 3 ml ONETIME ONE Administration Departure - Departure Time of Disposition: 14:03 Disposition: Home, Self-Care 01 Condition: Good Clinical Impression: Tracheobronchitis, Asthma - Discharge Information Referrals: Shelbi Good DO [Primary Care Provider] - Forms: ED Department Discharge Additional Instructions: The following information is given to patients seen in the emergency department who are being discharged to home. This information is to outline your options for follow-up care. We provide all patients seen in our emergency department with a follow-up referral. The need for follow-up, as well as the timing and circumstances, are variable depending upon the specifics of your emergency department visit. If you don't have a primary care physician on staff, we will provide you with a referral. We always advise you to contact your personal physician following an emergency department visit to inform them of the circumstance of the visit and for follow-up with them and/or the need for any referrals to a consulting specialist. The emergency department will also refer you to a specialist when appropriate. This referral assures that you have the opportunity for followup care with a specialist. All of these measure are taken in an effort to provide you with optimal care, which includes your followup. Under all circumstances we always encourage you to contact your private physician who remains a resource for coordinating your care. When calling for followup care, please make the office aware that this follow-up is from your recent emergency room visit. If for any reason you are refused follow-up, please contact the [facility] emergency department at and asked to speak to the emergency department charge nurse. Medrol Z-Nabil as prescribed continue albuterol follow-up primary medical doctor 1 -2 days and return as needed as discussed - My Orders Last 24 Hours: My Active Orders 05/21/17 12:07 RT Aerosol Therapy [RC] ASDIRECTED - Assessment/Plan Last 24 Hours: My Active Orders 05/21/17 12:07 RT Aerosol Therapy [RC] ASDIRECTED
--- NOTE | 2017-05-21 13:58 | CR ---
EXAMINATION: Two-view chest (PA and Lateral views). HISTORY: Shortness of breath. FINDINGS: The trachea is midline. The cardiomediastinal silhouette is within normal limits. No pulmonary infilt rates, effusions or pneumothorax. Implanted half backer noted. Osseous structures appear unremarkable. IMPRESSION: No acute cardiopulmonary process.
[2017-05-21 14:27] VITALS: BP 118/83
== END 2017-05-21 14:26 | disposition home or self-care (01) ==
LOC: MW.ED 11:51
DX: J45.909 Unspecified asthma, uncomplicated (principal); B34.9 Viral infection, unspecified; F32.9 Major depressive disorder, single episode, unspecified; Z79.899 Other long term (current) drug therapy; Z88.5 Allergy status to narcotic agent; Z88.6 Allergy status to analgesic agent; Z88.8 Allergy status to other drugs, medicaments and biological substances; Z91.040 Latex allergy status; Z91.048 Other nonmedicinal substance allergy status
CPT/HCPCS: 71046; 71046-26; 87804; 94640; 99283; 99284-25

== ENCOUNTER 2017-12-18 19:15 | Emergency (ER) | payer MEDICAID ==
[2017-12-18] MEDS ORDERED: Ondansetron 4 MG Tab.DIS PO ONE (19:37)
--- NOTE | 2017-12-18 19:46 | EDM.PDOC ---
ED HPI GENERAL MEDICAL PROBLEM - General Chief Complaint: Lower Extremity Injury/Pain Stated Complaint: RT FOOT PAIN Time Seen by Provider: 12/18/17 19:37 Source of Information: Reports: Patient History Limitations: Reports: No Limitations - History of Present Illness INITIAL COMMENTS - FREE TEXT/NARRATIVE: HISTORY AND PHYSICAL: []32-year-old female presenting with foot pain History of Present Illness: []Patient was moving a bag of stool so that she could clean and tools dropped hitting her on the dorsum of her right foot Incident occurred about half hour prior to coming to ER Review of Systems: As per history of present illness and below otherwise all systems reviewed and negative. Past medical history: As per history of present illness and as reviewed below otherwise noncontributory. Surgical history: As per history of present illness and as reviewed below otherwise noncontributory. Social history: No reported history of drug or alcohol abuse. Family history: As per history of present illness and as reviewed below otherwise noncontributory. Physical exam: Learning oriented female x-ray questions appropriately in full sentences without shortness of breath. Nontoxic in appearance.. Vital signs has been. HEENT: Atraumatic, normocehpalic, pupils reactive, negative for conjunctival pallor or scleral icterus, mucous membranes moist, throat clear, neck supple, nontender, trachea midline. Lungs: Clear to auscultation, breath sounds equal bilaterally, chest non tender. Heart: S1S2, regular, negative for clicks, rubs, or JVD. Abdomen: Soft, nondistended, nontender. Negative for masses or hepatossplenmegaly. Negative for costovertebral tenderness. Pelvis: Stable nontender. Genitourinary: Deferred. Rectal: Deferred Extremities: Mild erythema to the dorsum of the right foot. Ice was on the dorsum of her foot .the pulses are easily palpable negative for cords or calf pain. Neurovascular unremarkable. Neuro: Awake, alert, oriented. Cranial nerves II through XII unremarkable. Cerebellum unremarkable. Motor and sensory unremarkable throughout. Exam nonfocal. Have discussed with patient and her family that no fracture dislocation or subluxation has noted on x-ray David wrap applied for comfort Requesting some Zofran for nausea we will provide this prescription electronically Diagnostics: []X-ray right foot Therapeutics: []David wrap Zofran Impression: []Contusion right foot Plan: []Discharge home Follow-up with podiatry if you have not improving next week Ibuprofen 3 tablets 3 times a day for discomfort and swelling [facility] Dmitriy Ryan [facility] [address] [address] [facility] - Podiatry [address] [place] [address] Definitive disposition and diagnosis as appropriate pending reevaluation and review of above. Onset: Today, Sudden Duration: Minutes: (30) Location: Reports: Lower Extremity, Right Quality: Reports: Ache, Throbbing Severity: Moderate Improves with: Reports: None Worsens with: Reports: None Associated Symptoms: Reports: Nausea/Vomiting right foot Pain Score (Numeric/FACES): 8 - Related Data Allergies Allergy/AdvReac Type Severity Reaction Status Date / Time latex Allergy Severe Hives Verified 12/18/17 19:27 nickel [Nickel] Allergy Severe Rash Verified 12/18/17 19:27 oxycodone [Oxycodone] Allergy Severe Itching Verified 12/18/17 19:27 oxycodone HCl [From Percocet] Allergy Severe Itching Verified 12/18/17 19:27 propoxyphene napsylate Allergy Severe Itching Verified 12/18/17 19:27 [From Darvocet-N 100] terconazole [From Terazol 3] Allergy Severe Swelling Verified 12/18/17 19:27 adhesive tape Allergy Itching Verified 12/18/17 19:27 glatiramer acetate Allergy Hives Verified 12/18/17 19:27 [From Copaxone] morphine Allergy Itching Verified 12/18/17 19:27 sumatriptan [From Imitrex] Allergy Itching Verified 12/18/17 19:27 tioconazole Allergy Itching Verified 05/21/17 12:02 [From Monistat 1 (tioconazole)] Home Meds: Home Meds Lorcaserin HCl [Belviq] 10 mg PO DAILY 02/01/17 [History] Ondansetron [Zofran ODT] 4 mg PO Q6H PRN #12 tab.dis 12/18/17 [Rx] Past Medical History HEENT History: Reports: Other (See Below) Other HEENT History: Uses eyeglasses. 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, Sophia reports history of Exercise Induced Asthma Gastrointestinal History: Reports: None Genitourinary History: Reports: Urinary Incontinence, UTI, Recurrent VALVE INSERTER History: Reports: 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, Other VALVE INSERTER History: - 3 Musculoskeletal History: Reports: Arthritis Other Musculoskeletal History: hx: fractre Rt ankle 'hairline', Multiple Sclerosis-is stable, Low back pain Neurological History: Reports: Migraines, MS Other Neuro History: Multiple Sclerosis - 2005 Psychiatric History: Reports: Anxiety, Depression Other Psychiatric History: taking medications Endocrine/Metabolic History: Reports: None Hematologic History: Reports: None Immunologic History: Reports: None Oncologic (Cancer) History: Reports: None Dermatologic History: Reports: None - Infectious Disease History Infectious Disease History: Reports: Chicken Pox - Past Surgical History HEENT Surgical History: Reports: Tonsillectomy Other HEENT Surgeries/Procedures: adenoids Cardiovascular Surgical History: Reports: Other (See Below) Other Cardiovascular Surgeries/Procedures: "chest reconstruction" Respiratory Surgical History: Reports: None GI Surgical History: Reports: Appendectomy, Cholecystectomy Other GI Surgeries/Procedures: Lap Cholecystectomy Female Surgical History: Reports: Other (See Below) Other Female Surgeries/Procedures: bladder mesh Endocrine Surgical History: Reports: None Musculoskeletal Surgical History: Reports: Carpal Tunnel, Other (See Below) Other Musculoskeletal Surgeries/Procedures:: Surgery for trigger fingers, Right trigger thumb repair Oncologic Surgical History: Reports: None Dermatological Surgical History: Reports: None - History Comment History Comment: etoh "2x a year" Social & Family History - Family History Family Medical History: Noncontributory HEENT: Reports: None Cardiac: Reports: None Respiratory: Reports: None GI: Reports: None : Reports: None OBGYN: Reports: None Musculoskeletal: Reports: Back pain, Chronic Neurological: Reports: None Psychiatric: Reports: Anxiety, Depression Endocrine/Metabolic: Reports: None Hematologic: Reports: None Immunologic: Reports: None Dermatologic: Reports: Eczema Oncologic: Reports: Breast, Prostate, Skin - Caffeine Use Caffeine Use: Reports: Coffee, Soda Review of Systems - Review of Systems Review Of Systems: ROS reveals no pertinent complaints other than HPI. ED EXAM, GENERAL - Physical Exam Exam: See Below (see dictation) Course - Vital Signs Last Recorded V/S: Last Vital Signs Temp 35.8 C 12/18/17 19:22 Pulse 122 H 12/18/17 19:22 Resp 18 12/18/17 19:22 BP 136/91 H 12/18/17 19:22 Pulse Ox 97 12/18/17 19:22 - Orders/Labs/Meds Orders: Active Orders 24 hr Category Date Time Status Foot 2V Rt [CR] Stat Exams 12/18/17 19:38 Taken Meds: Medications Discontinued Medications Generic Name Dose Route Start Last Admin Trade Name Freq PRN Reason Stop Dose Admin Ondansetron HCl 4 mg 12/18/17 19:37 12/18/17 19:42 Zofran Odt PO 12/18/17 19:38 4 mg ONETIME ONE Administration Departure - Departure Time of Disposition: 20:26 Disposition: Home, Self-Care 01 Condition: Good Clinical Impression: Contusion of right foot Qualifiers: Encounter type: initial encounter Qualified Code(s): S90.31XA - Contusion of right foot, initial encounter - Discharge Information *PRESCRIPTION DRUG MONITORING PROGRAM REVIEWED*: Not Applicable *COPY OF PRESCRIPTION DRUG MONITORING REPORT IN PATIENT VINCENT: Not Applicable Prescriptions: Ondansetron [Zofran ODT] 4 mg PO Q6H PRN #12 tab.dis PRN Reason: Nausea/Vomiting Instructions: Foot Contusion, Mvaz-ey-Cigc Referrals: Shelbi Good DO [Primary Care Provider] - Forms: ED Department Discharge Additional Instructions: The following information is given to patients seen in the emergency department who are being discharged to home. This information is to outline your options for follow-up care. We provide all patients seen in our emergency department with a follow-up referral. The need for follow-up, as well as the timing and circumstances, are variable depending upon the specifics of your emergency department visit. If you don't have a primary care physician on staff, we will provide you with a referral. We always advise you to contact your personal physician following an emergency department visit to inform them of the circumstance of the visit and for follow-up with them and/or the need for any referrals to a consulting specialist. The emergency department will also refer you to a specialist when appropriate. This referral assures that you have the opportunity for followup care with a specialist. All of these measure are taken in an effort to provide you with optimal care, which includes your followup. Under all circumstances we always encourage you to contact your private physician who remains a resource for coordinating your care. When calling for followup care, please make the office aware that this follow-up is from your recent emergency room visit. If for any reason you are refused follow-up, please contact the [facility] emergency department at and asked to speak to the emergency department charge nurse. Discharge home Follow-up with podiatry if you have not improving next week Ibuprofen 3 tablets 3 times a day for discomfort and swelling [facility] Dmitriy Ryan [facility] [address] [address] [facility] - Podiatry [address] [place] [id number] - My Orders Last 24 Hours: My Active Orders 12/18/17 19:38 Foot 2V Rt [CR] Stat - Assessment/Plan Last 24 Hours: My Active Orders 12/18/17 19:38 Foot 2V Rt [CR] Stat
[2017-12-18 20:45] VITALS: BP 122/90
--- NOTE | 2017-12-21 10:20 | CR ---
EXAM DATE: 12/18/17 PATIENT'S AGE: 32 Patient: HALEY ROGERS Facility: [place], [place] Site . Site : 1985 Study: XRay Extremity Right [id number]/17/2018 7:59:11 PM Ordering Physician: Doctor Beth Final Report: Indication: Pain. Two bag fell on foot. Technique: Two views of the right foot were obtained. Comparison: None. Findings: No acute fracture or subluxation is identified. The joint spaces are well maintained. Impression: No acute fracture. Dictated by Adalgisa Pires MD @ Dec 18 2017 8:02PM (Electronic Signature) Report Signed by Proxy. STEFANIE
== END 2017-12-18 20:40 | disposition home or self-care (01) ==
LOC: MW.ED 19:15
DX: S90.31XA Contusion of right foot, initial encounter (principal); Z79.899 Other long term (current) drug therapy; Z88.8 Allergy status to other drugs, medicaments and biological substances; Z91.040 Latex allergy status; Z88.6 Allergy status to analgesic agent; Z91.09 Other allergy status, other than to drugs and biological substances; W20.8XXA Other cause of strike by thrown, projected or falling object, initial encounter
CPT/HCPCS: 73620; 99283; A9270

== ENCOUNTER 2018-06-30 06:18 | Day surgery (SDC) | payer MEDICAID ==
--- NOTE | 2018-06-30 07:12 | PCM.PREANE ---
Preanesthetic Assessment - Anesthesia/Transfusion/Family Hx Anesthesia History: Prior Anesthesia Reaction Other Type of Anesthesia Reaction Comment: "mother and I have problems with N&V after surgery" Family History of Anesthesia Reaction: No Transfusion History: No Prior Transfusion(s) Intubation History: Unknown - Review of Systems General: No Symptoms Pulmonary: No Symptoms Cardiovascular: No Symptoms Gastrointestinal: No Symptoms Neurological: No Symptoms Other: Reports: None - Physical Assessment O2 Sat by Pulse Oximetry: 99 Respiratory Rate: 18 Vital Signs: Last Vital Signs Temp 35.7 C 06/30/18 06:50 Pulse 91 06/30/18 06:50 Resp 18 06/30/18 06:50 BP 126/77 06/30/18 06:50 Pulse Ox 99 06/30/18 06:50 Height: 1.73 m Weight: 103.419 kg ASA Class: 3 Mental Status: Alert & Oriented x3 Airway Class: Mallampati = 2 Dentition: Reports: Normal Dentition, [place](s) (back lower) Thyro-Mental Finger Breadths: 3 Mouth Opening Finger Breadths: 3 ROM/Head Extension: Full Lungs: Clear to Auscultation, Normal Respiratory Effort Cardiovascular: Regular Rate, Regular Rhythm - Allergies Allergies/Adverse Reactions: Allergies Allergy/AdvReac Type Severity Reaction Status Date / Time latex Allergy Severe Hives Verified 06/28/18 07:50 nickel [Nickel] Allergy Severe Rash Verified 06/28/18 07:50 oxycodone [Oxycodone] Allergy Severe Itching Verified 06/28/18 07:50 oxycodone HCl [From Percocet] Allergy Severe Itching Verified 06/28/18 07:50 propoxyphene napsylate Allergy Severe Itching Verified 06/28/18 07:50 [From Darvocet-N 100] terconazole [From Terazol 3] Allergy Severe Swelling Verified 06/28/18 07:50 adhesive tape Allergy Itching Verified 06/28/18 07:50 glatiramer acetate Allergy Hives Verified 06/28/18 07:50 [From Copaxone] morphine Allergy Itching Verified 06/28/18 07:50 sumatriptan [From Imitrex] Allergy Itching Verified 06/28/18 07:50 tioconazole Allergy Itching Verified 06/28/18 07:51 [From Monistat 1 (tioconazole)] - Blood Blood Available: No - Anesthesia Plan Pre-Op Medication Ordered: None - Acknowledgements Anesthesia Type Planned: MAC Pt an Appropriate Candidate for the Planned Anesthesia: Yes Alternatives and Risks of Anesthesia Discussed w Pt/Guardian: Yes Pt/Guardian Understands and Agrees with Anesthesia Plan: Yes PreAnesthesia Questionnaire HEENT History: Reports: Other (See Below) Other HEENT History: glasses Cardiovascular History: Reports: Arrhythmia, Hypertension Other Cardiovascular History: sinus tachycardia Respiratory History: Reports: Asthma, Other (See Below) Other Respiratory History: sports induced asthma Gastrointestinal History: Reports: Hiatal Hernia Genitourinary History: Reports: None 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 History: Reports: 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, Other OB/BYN History: - 3 Musculoskeletal History: Reports: Arthritis Other Musculoskeletal History: hx: fractre Rt ankle 'hairline', Multiple Sclerosis-is stable, Low back pain Neurological History: Reports: Migraines, MS Other Neuro History: Multiple Sclerosis - 2006, some numbness in right arm, h/o memory disturbance, tremor in her hands Psychiatric History: Reports: Anxiety, Depression Other Psychiatric History: taking medications Endocrine/Metabolic History: Reports: Obesity/BMI 30+ Hematologic History: Reports: None Immunologic History: Reports: None Oncologic (Cancer) History: Reports: None Dermatologic History: Reports: None - Infectious Disease History Infectious Disease History: Reports: Chicken Pox - Past Surgical History Head Surgeries/Procedures: Reports: None HEENT Surgical History: Reports: Adenoidectomy, Oral Surgery, Tonsillectomy Other Cardiovascular Surgeries/Procedures: heart monitor implanted on left chest GI Surgical History: Reports: Appendectomy, Cholecystectomy Female Surgical History: Reports: Hysterectomy, Tubal Ligation, Other (See Below) Other Female Surgeries/Procedures: bladder lift x2, TVT 2014 Musculoskeletal Surgical History: Reports: Other (See Below) Other Musculoskeletal Surgeries/Procedures:: wrist surgery-ollie, chest reconstruction due to deformity - History Comment History Comment: etoh "2x a year" - SUBSTANCE USE Smoking Status *Q: Never Smoker Recreational Drug Use History: No - HOME MEDS Home Medications: Home Meds Levomilnacipran Hydrochloride [Fetzima] 160 mg PO DAILY 04/08/18 [History] hydrOXYzine HCl [hydrOXYzine] 1 tab PO ASDIRECTED PRN 04/08/18 [History] lamoTRIgine [Lamictal] 25 mg PO BEDTIME 04/08/18 [History] Prazosin HCl [Prazosin] 1 mg PO BID 06/28/18 [History] Venlafaxine [Effexor XR] 150 mg PO DAILY 06/28/18 [History] Verapamil HCl [Verapamil Sr] 240 mg PO BEDTIME 06/28/18 [History] Zaleplon 10 mg PO BEDTIME PRN 06/28/18 [History] - CURRENT (IN HOUSE) MEDS Current Meds: Current Medications Bupivacaine HCl/Epinephrine Bitart (Marcaine 0.25%/Epinephrine 1:200,000) 10 ml INJECT ONETIME ONE Stop: 06/30/18 08:01 Cefazolin Sodium/Dextrose 2 gm (/ Premix) 50 mls @ 100 mls/hr IV ONETIME ONE Stop: 06/30/18 08:29 Lactated Ringer's (Ringers, Lactated) 1,000 mls @ 125 mls/hr IV ASDIRECTED JCARLOS Last Admin: 06/30/18 06:50 Dose: 125 mls/hr
[2018-06-30] MEDS ORDERED: Midazolam 1 MG/ML 2 ML SDV ONE (07:24)
[2018-06-30] MEDS ORDERED: Lidocaine 2% 5 ML SDV ONE (07:24)
[2018-06-30] MEDS ORDERED: Propofol 200 MG/20 ML SDV ONE (07:24)
[2018-06-30] MEDS ORDERED: fentaNYL 100 MCG/2 ML SDV ONE ×2 (07:24→07:56)
[2018-06-30] MEDS ORDERED: ceFAZolin 1 GM Vial ONE (07:25)
[2018-06-30] MEDS ORDERED: Sodium Chloride 0.9% 20 ML ONE (07:25)
[2018-06-30] MEDS ORDERED: Bupivacaine 0.25%/EPINEPHrine 1:200,000 10 ML SDV ONE ×3 (07:31→08:24)
[2018-06-30] MEDS ORDERED: Bupivacaine 0.25%/EPINEPHrine 1:200,000 10 ML SDV INJECT ONE (08:00)
[2018-06-30] MEDS ORDERED: ceFAZolin 2 GM in Premix Bag 1 BAG IV ONE (08:00)
[2018-06-30] MEDS ORDERED: Lactated Ringers 1,000 ML IV SCH (08:00)
[2018-06-30] MEDS ORDERED: Ondansetron 4 MG/2 ML SDV IVPUSH ONE (09:29)
[2018-06-30 10:23] VITALS: BP 115/72
--- NOTE | 2018-06-30 10:27 | PCM.POSTAN ---
POST ANESTHESIA ASSESSMENT - MENTAL STATUS Mental Status: Alert, Oriented - RESPIRATORY Respiratory Status: Respiratory Rate WNL, Airway Patent, O2 Saturation Stable - CARDIOVASCULAR CV Status: Pulse Rate WNL, Blood Pressure Stable - GASTROINTESTINAL GI Status: No Symptoms - PAIN Pain Score: 0 - POST OP HYDRATION Hydration Status: Adequate & Stable - OBSERVATIONS Free Text/Narrative:: no anesthesia problems, patient skipped recovery room phase of postoperative care
--- NOTE | 2018-06-30 12:51 | PCM.OPNOTE ---
- General Post-Op/Procedure Note Date of Surgery/Procedure: 06/30/18 Operative Procedure(s): right radial tunnel release Pre Op Diagnosis: right radial tunnel syndrome and pain Post-Op Diagnosis: Same Anesthesia Technique: Local, MAC Primary Surgeon: Anna Brar Street Sweeper Operator: Josy Georges Complications: None Condition: Good Free Text/Narrative:: Intake & Output 06/29/18 06/30/18 06/30/18 23:59 07:59 15:59 Intake Total 100 Balance 100
--- NOTE | 2018-06-30 16:43 | OR ---
SURGEON: JOSE EDUARDO JACKMAN MD DATE OF PROCEDURE: 06/30/2018 PREOPERATIVE DIAGNOSIS: Right radial tunnel syndrome. POSTOPERATIVE DIAGNOSIS: Right radial tunnel syndrome. PROCEDURE: Right radial tunnel release surgery. LEATHER STAMPER: JAKE Luciano. REASON FOR AND ROLE OF LEATHER STAMPER: Retraction, prepping, draping, positioning and closure assistance. ANESTHESIA: Local MAC. INDICATIONS: Ms. Miles is a 32-year-old female, seen today in evaluation for a right forearm pain, focally palpable and able to be provoked at the radial tunnel. She has had several other workups including an MRI imaging and EMGs. She unfortunately does not have any other findings, and we discussed the radial tunnel as well as the expectations from surgery with radial tunnel. Unfortunately, even surgical options were quite poor at 50% to 70% improvement in the resolution rate because of the difficult nature in the diagnosis of this. She has very characteristic symptoms, was ruled out all other contributing causes and thus we discussed risks and benefits of surgery. She would like to proceed as soon as possible as she is in quite a lot of pain. Risks were including, but not limited to, bleeding, infection, damage to underlying or overlying structures, possible need for future interventions, and possible scarring. PROCEDURE IN DETAIL: After informed consent was obtained and placed on the chart, the patient was brought to operating theater and laid in supine position. After adequate anesthesia was obtained, the area was prepped and draped, and a time-out was completed to confirm side and site. Once adequately confirmed, the area had been anesthetized appropriately and tourniquet was insufflated to 200 mmHg. After exsanguination, attention was then paid to dissection over the dorsal radial aspect of the left wrist between the brachioradialis and the extensor wad. Color change was easily noted between the two muscle structures, and dissection was easily carried down to locate superficial branch of the radial nerve. Once adequately located here, this was dissected back to the radial nerve proper. Dissection was then carried down on the deeper branch to the leading edge of the supinator. There were some small vessels here that were clipped, and then the leading edge of the supinator was also transected. This was quite tight after the leading edge was supinated. Once this was transected, dissection was carried distally and proximally to ensure complete release, and we were able to pass finger into both the distal and proximal tunnel. The superficial radial nerve was also inspected and appreciated to be free of any type of compression. The tourniquet was deflated and meticulous hemostasis was obtained. The wound was closed using a deep 4-0 Monocryl stitch and a running 4-0 subcuticular for the skin. It was dressed with Steri-Strips. The patient tolerated this well and was dressed with fluffs and an David wrap. All counts and needles were correct at the end of the case. FOLLOWUP INSTRUCTIONS: The patient will see us in 2 weeks, sooner if any problems, questions, or concerns. She is having long lasting allergies, the majority of the pain medications caused itching and she has had [place] before and tolerated it well, so we will try this again. Should she have any issues, she can always opt for Benadryl or call office and we can change to something like Tramadol. She does understand this. All questions were answered. All counts and needles were correct at the end of the case. HEGGTVIMAL / PEEWEE /[id number] STEFANIE
== END 2018-06-30 10:30 | disposition home or self-care (01) ==
LOC: MW.SDS 06:18
PROVIDERS: ATTEND Plastic Surgery
DX: G56.31 Lesion of radial nerve, right upper limb (principal); J45.990 Exercise induced bronchospasm; K21.0 Gastro-esophageal reflux disease with esophagitis; F32.9 Major depressive disorder, single episode, unspecified; F41.9 Anxiety disorder, unspecified; Z88.8 Allergy status to other drugs, medicaments and biological substances; Z88.5 Allergy status to narcotic agent; Z91.040 Latex allergy status; Z91.048 Other nonmedicinal substance allergy status; Z79.899 Other long term (current) drug therapy; Z68.34 Body mass index [BMI] 34.0-34.9, adult; E66.9 Obesity, unspecified
CPT/HCPCS: 64708; J0690; J2001; J2250; J2405; J2704; J3010; J3490; J7120; 01810

== ENCOUNTER 2018-09-15 08:23 | Day surgery (SDC) | payer MEDICAID ==
[~2018-09-15 08:23] MED LIST changes: +Bupivacaine 0.25%/EPINEPHrine 1:200,000 10 ML SDV INJECT ONE; +Bupivacaine 25%/EPINEPHrine/PF 30 ML ONE
[2018-09-15] MEDS ORDERED: Midazolam 1 MG/ML 2 ML SDV ONE (08:47)
[2018-09-15] MEDS ORDERED: Lidocaine 2% 5 ML SDV ONE (08:47)
[2018-09-15] MEDS ORDERED: fentaNYL 100 MCG/2 ML SDV ONE ×3 (08:47→10:01)
[2018-09-15] MEDS ORDERED: ceFAZolin 1 GM Vial ONE ×2 (08:47→09:25)
[2018-09-15] MEDS ORDERED: Propofol 200 MG/20 ML SDV ONE (08:47)
[2018-09-15] MEDS ORDERED: Sodium Chloride 0.9% 0 ML ONE (08:47)
[2018-09-15] MEDS ORDERED: ceFAZolin/Dextrose,Iso-Osmotic 2 GM/50 ML Duplex Bag IV ONE (08:50)
--- NOTE | 2018-09-15 09:14 | PCM.PREANE ---
Preanesthetic Assessment - Anesthesia/Transfusion/Family Hx Anesthesia History: Prior Anesthesia Reaction Other Type of Anesthesia Reaction Comment: "mother and myself have problems with N&V after surgery" Family History of Anesthesia Reaction: No Transfusion History: No Prior Transfusion(s) Intubation History: Unknown - Review of Systems General: No Symptoms Pulmonary: No Symptoms Cardiovascular: No Symptoms Gastrointestinal: No Symptoms Neurological: No Symptoms Other: Reports: None - Physical Assessment NPO Status Date: 09/14/18 Height: 5 ft 8 in Weight: 99.337 kg ASA Class: 2 Mental Status: Alert & Oriented x3 Airway Class: Mallampati = 2 Dentition: Reports: Normal Dentition ROM/Head Extension: Full Lungs: Clear to Auscultation, Normal Respiratory Effort Cardiovascular: Regular Rate, Regular Rhythm - Allergies Allergies/Adverse Reactions: Allergies Allergy/AdvReac Type Severity Reaction Status Date / Time latex Allergy Severe Hives Verified 09/10/18 08:51 nickel [Nickel] Allergy Severe Rash Verified 09/10/18 08:51 oxycodone [Oxycodone] Allergy Severe Itching Verified 09/10/18 08:51 oxycodone HCl [From Percocet] Allergy Severe Itching Verified 09/10/18 08:51 propoxyphene napsylate Allergy Severe Itching Verified 09/10/18 08:51 [From Darvocet-N 100] terconazole [From Terazol 3] Allergy Severe Swelling Verified 09/10/18 08:51 adhesive tape Allergy Itching Verified 09/10/18 08:51 glatiramer acetate Allergy Hives Verified 09/10/18 08:51 [From Copaxone] morphine Allergy Itching Verified 09/10/18 08:51 sumatriptan [From Imitrex] Allergy Itching Verified 09/10/18 08:51 tioconazole Allergy Itching Verified 06/28/18 07:51 [From Monistat 1 (tioconazole)] - Blood Blood Available: No - Anesthesia Plan Pre-Op Medication Ordered: None - Acknowledgements Anesthesia Type Planned: MAC Pt an Appropriate Candidate for the Planned Anesthesia: Yes Alternatives and Risks of Anesthesia Discussed w Pt/Guardian: Yes Pt/Guardian Understands and Agrees with Anesthesia Plan: Yes PreAnesthesia Questionnaire HEENT History: Reports: Other (See Below) Other HEENT History: glasses Cardiovascular History: Reports: Arrhythmia, Hypertension Other Cardiovascular History: sinus tachycardia Respiratory History: Reports: Asthma, Other (See Below) Other Respiratory History: sports induced asthma Gastrointestinal History: Reports: Hiatal Hernia Genitourinary History: Reports: None 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: 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, Other OB/BYN History: - 3 Musculoskeletal History: Reports: Arthritis Other Musculoskeletal History: hx: fractre Rt ankle 'hairline', Multiple Sclerosis-is stable, Low back pain Neurological History: Reports: Migraines, MS Other Neuro History: Multiple Sclerosis - 2006, some numbness in right arm, h/o memory disturbance, Psychiatric History: Reports: Anxiety, Depression, PTSD Endocrine/Metabolic History: Reports: Obesity/BMI 30+ Hematologic History: Reports: None Immunologic History: Reports: None Oncologic (Cancer) History: Reports: None Dermatologic History: Reports: None - Infectious Disease History Infectious Disease History: Reports: Chicken Pox - Past Surgical History Head Surgeries/Procedures: Reports: None HEENT Surgical History: Reports: Adenoidectomy, Oral Surgery, Tonsillectomy Cardiovascular Surgical History: Reports: Other (See Below) Other Cardiovascular Surgeries/Procedures: heart monitor implanted on left chest Respiratory Surgical History: Reports: None GI Surgical History: Reports: Appendectomy, Cholecystectomy Other GI Surgeries/Procedures: Lap Cholecystectomy Female Surgical History: Reports: Hysterectomy, Tubal Ligation, Other (See Below) Other Female Surgeries/Procedures: bladder lift x2, TVT 2014 Endocrine Surgical History: Reports: None Neurological Surgical History: Reports: None Musculoskeletal Surgical History: Reports: Other (See Below) Other Musculoskeletal Surgeries/Procedures:: wrist surgery-ollie, chest reconstruction due to deformity, rt radial tunnel release 2 months ago Oncologic Surgical History: Reports: None Dermatological Surgical History: Reports: None - History Comment History Comment: etoh "2x a year" - SUBSTANCE USE Smoking Status *Q: Never Smoker Recreational Drug Use History: No - HOME MEDS Home Medications: Home Meds hydrOXYzine HCl [hydrOXYzine] 1 tab PO ASDIRECTED PRN 04/08/18 [History] lamoTRIgine [Lamictal] 25 mg PO BEDTIME 04/08/18 [History] Prazosin HCl [Prazosin] 1 mg PO BID 06/28/18 [History] Venlafaxine [Effexor XR] 150 mg PO DAILY 06/28/18 [History] Verapamil HCl [Verapamil Sr] 240 mg PO BEDTIME 06/28/18 [History] Zaleplon 10 mg PO BEDTIME PRN 06/28/18 [History] Cholecalciferol (Vitamin D3) [Vitamin D3] 5,000 units PO WEEKLY 09/13/18 [ History] - CURRENT (IN HOUSE) MEDS Current Meds: Current Medications Lactated Ringer's (Ringers, Lactated) 1,000 mls @ 125 mls/hr IV ASDIRECTED JCARLOS Discontinued Medications Bupivacaine HCl/Epinephrine Bitart (Marcaine 0.25%/Epinephrine 1:200,000) 10 ml INJECT ONETIME ONE Stop: 09/15/18 08:01 Cefazolin Sodium (Ancef) Confirm Administered Dose 2 gm .ROUTE .STK-MED ONE Stop: 09/15/18 08:48 Cefazolin Sodium/Dextrose (Ancef) Confirm Administered Dose 2 gm IV .STK-MED ONE Stop: 09/15/18 08:51 Fentanyl (Sublimaze) Confirm Administered Dose 100 mcg .ROUTE .STK-MED ONE Stop: 09/15/18 08:48 Cefazolin Sodium/Dextrose 2 gm (/ Premix) 50 mls @ 100 mls/hr IV ONETIME ONE Stop: 09/15/18 08:29 Bupivacaine HCl/Epinephrine Bitart (Sensorc Mpf 0.25%-Epi 1:[id number]) Confirm Administered Dose 30 mls @ as directed .ROUTE .STK-MED ONE Stop: 09/15/18 07:27 Sodium Chloride (Normal Saline) Confirm Administered Dose 20 mls @ as directed .ROUTE .STK-MED ONE Stop: 09/15/18 08:48 Lidocaine (Xylocaine-Mpf 2%) Confirm Administered Dose 5 ml .ROUTE .STK-MED ONE Stop: 09/15/18 08:48 Midazolam HCl (Versed 1 Mg/Ml) Confirm Administered Dose 2 mg .ROUTE .STK-MED ONE Stop: 09/15/18 08:48 Propofol (Diprivan 20 Ml) Confirm Administered Dose 400 mg .ROUTE .STK-MED ONE Stop: 09/15/18 08:48
[2018-09-15] MEDS ORDERED: Sodium Chloride 0.9% 20 ML ONE (09:25)
[2018-09-15] MEDS ORDERED: Octyl 2-Cyanoacrylate 1 Tube ONE (09:38)
[2018-09-15] MEDS ORDERED: Acetaminophen 1,000 MG in Premix Bag 1 BAG IV ONE (10:30)
[2018-09-15] MEDS ORDERED: Ketorolac 30 MG/ML SDV IVPUSH ONE (10:38)
[2018-09-15 10:51] VITALS: BP 118/74
[2018-09-15] MEDS ORDERED: Acetaminophen/HYDROcodone 325-5 MG Tab PO ONE (11:26)
--- NOTE | 2018-09-15 11:31 | PCM.OPNOTE ---
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 We discussed with her the components of pain and her description if more throbbing , and she states it is proximal to the incision. She does have 20cc of bupivacaine that was injected early in the case and we rewrapped the muriel. She does describe some social anxiety issues and lack of sleep and when distracted is not noted to protect or guard the left arm, even itching it at times. We frankly discussed pain management and being responsible with the medications and going home to get some rest. She is in no distress, vitals are stable and no signs of other compromise. We discussed not adding more things that could make her sleepy or compromise breathing and will continue with just baldomero, as that worked well for her last time. We will continue to monitor until discharge criteria met and follow closely. She knows to call with any issues or concerns and was given instructions on wound cares and follow up.
--- NOTE | 2018-09-15 11:35 | PCM48HPAN ---
Post Anesthesia Note - EVALUATION WITHIN 48HRS OF ANESTHETIC Vital Signs in Normal Range: Yes Patient Participated in Evaluation: Yes Respiratory Function Stable: Yes Airway Patent: Yes Cardiovascular Function Stable: Yes Hydration Status Stable: Yes Pain Control Satisfactory: Yes Nausea and Vomiting Control Satisfactory: Yes Mental Status Recovered: Yes Resp Rate: 16
== END 2018-09-15 11:38 | disposition home or self-care (01) ==
LOC: MW.SDS 08:23
PROVIDERS: ATTEND Plastic Surgery
DX: G56.32 Lesion of radial nerve, left upper limb (principal); G43.909 Migraine, unspecified, not intractable, without status migrainosus; G35 Multiple sclerosis; F41.9 Anxiety disorder, unspecified; I10 Essential (primary) hypertension; F43.10 Post-traumatic stress disorder, unspecified; E66.9 Obesity, unspecified; Z68.33 Body mass index [BMI] 33.0-33.9, adult; Z87.09 Personal history of other diseases of the respiratory system; Z88.5 Allergy status to narcotic agent; Z91.040 Latex allergy status; Z88.8 Allergy status to other drugs, medicaments and biological substances; Z91.048 Other nonmedicinal substance allergy status
CPT/HCPCS: 64708; A4217; A9270; J0131; J0690; J1885; J2001; J2250; J2704; J3010; J7120; 01810

== ENCOUNTER 2018-09-22 14:16 | Emergency (ER) | payer MEDICAID ==
[2018-09-22] MEDS ORDERED: Sodium Chloride 0.9% 1,000 ML IV ONE (15:19)
[2018-09-22] MEDS ORDERED: Ondansetron 4 MG/2 ML SDV IVPUSH ONE (15:21)
[2018-09-22] MEDS ORDERED: Ketorolac 30 MG/ML SDV IVPUSH ONE (15:21)
--- NOTE | 2018-09-22 15:56 | EDM.PDOC ---
ED HPI GENERAL MEDICAL PROBLEM - General Chief Complaint: Abdominal Pain Stated Complaint: STOMACH CRAMPS Time Seen by Provider: 09/22/18 14:45 Source of Information: Reports: Patient History Limitations: Reports: No Limitations - History of Present Illness INITIAL COMMENTS - FREE TEXT/NARRATIVE: HISTORY AND PHYSICAL: History of present illness: Patient is a 32-year-old female presents to the ED today with concern of increasing generalized abdominal pain following a diagnosis of C. difficile. Patient states she was diagnosed with C. difficile several weeks ago and is finishing vancomycin antibiotic. Patient states over the past 2-3 days she's had increasing abdominal pain. Patient states she is noticed a decrease in her stools and feels as if her stomach is "air". Patient states her diarrhea has improved but she is still having some slight diarrhea. Patient states she feels nauseous but has not vomited. Patient denies any other health history and any other symptoms at this time. Patient denies fever, chills, chest pain, shortness of breath, or cough. Denies headache, neck stiff ness, change in vision, syncope, or near syncope. Denies vomiting, or dysuria. Has not noted any blood in urine or stool. Patient has been eating and drinking appropriately. Review of systems: As per history of present illness and below otherwise all systems reviewed and negative. Past medical history: As per history of present illness and as reviewed below otherwise noncontributory. Surgical history: As per history of present illness and as reviewed below otherwise noncontributory. Social history: See social history for further information Family history: As per history of present illness and as reviewed below otherwise noncontributory. Physical exam: General: Patient is alert, oriented, and in no acute distress. Patient sitting comfortably on exam table. HEENT: Atraumatic, normocephalic, pupils equal and reactive bilaterally, negative for conjunctival pallor or scleral icterus, mucous membranes moist, TMs normal bilaterally, throat clear, neck supple, nontender, trachea midline. No drooling or trismus noted. No meningeal signs. No hot potato voice noted. Lungs: Clear to auscultation, breath sounds equal bilaterally, chest nontender. Heart: S1S2, regular rate and rhythm without overt murmur Abdomen: Soft, nondistended. Generalized severe pain to palpation with guarding. Negative for masses or hepatosplenomegaly. Negative for costovertebral tenderness. Pelvis: Stable nontender. Genitourinary: Deferred. Rectal: Deferred. Skin: Intact, warm, dry. No lesions or rashes noted. Extremities: Atraumatic, negative for cords or calf pain. Neurovascular unremarkable. Neuro: Awake, alert, oriented. Cranial nerves II through XII unremarkable. Cerebellum unremarkable. Motor and sensory unremarkable throughout. Exam nonfocal. Notes: Dr. Augustin was directly involved in patient care. Patient was unable to collect stool today and ED. Supplies further stool sample has been given to her to bring back to the lab. Voices understanding and is agreeable to plan of care. Denies any further questions or concerns at this time. Diagnostics: CBC, CMP, UA, abdominal pelvic CT, stool studies, lipase Therapeutics: Zofran, Toradol, saline Prescription: None Impression: Abdominal pain, unspecified h/o cdiff Plan: 1. You can alternate ibuprofen and Tylenol as directed for pain and discomfort. 2. Stool collection supplies have been given to you. Return to the lab when you have collected a sample. 3. Follow up with your primary care provider as discussed. Return to the ED as needed and as discussed. Definitive disposition and diagnosis as appropriate pending reevaluation and review of above. Middle Abdomen Pain Score (Numeric/FACES): 8 - Related Data Allergies Allergy/AdvReac Type Severity Reaction Status Date / Time latex Allergy Severe Hives Verified 09/22/18 14:52 nickel [Nickel] Allergy Severe Rash Verified 09/22/18 14:52 oxycodone [Oxycodone] Allergy Severe Itching Verified 09/22/18 14:52 oxycodone HCl [From Percocet] Allergy Severe Itching Verified 09/22/18 14:52 propoxyphene napsylate Allergy Severe Itching Verified 09/22/18 14:52 [From Darvocet-N 100] terconazole [From Terazol 3] Allergy Severe Swelling Verified 09/22/18 14:52 adhesive tape Allergy Itching Verified 09/22/18 14:52 glatiramer acetate Allergy Hives Verified 09/22/18 14:52 [From Copaxone] morphine Allergy Itching Verified 09/22/18 14:52 sumatriptan [From Imitrex] Allergy Itching Verified 09/22/18 14:52 tioconazole Allergy Itching Verified 09/22/18 14:52 [From Monistat 1 (tioconazole)] Home Meds: Home Meds hydrOXYzine HCl [hydrOXYzine] 1 tab PO ASDIRECTED PRN 04/08/18 [History] lamoTRIgine [Lamictal] 25 mg PO BEDTIME 04/08/18 [History] Venlafaxine [Effexor XR] 225 mg PO DAILY 06/28/18 [History] Verapamil HCl [Verapamil Sr] 120 mg PO BEDTIME 06/28/18 [History] Zaleplon 10 mg PO BEDTIME PRN 06/28/18 [History] Cholecalciferol (Vitamin D3) [Vitamin D3] 5,000 units PO WEEKLY 09/13/18 [ History] Acetaminophen/HYDROcodone [[place] 325-5 MG] 1 tab PO Q4H PRN #30 tablet 09/15/18 [Rx] Past Medical History HEENT History: Reports: Other (See Below) Other HEENT History: glasses Cardiovascular History: Reports: Arrhythmia, Hypertension Other Cardiovascular History: sinus tachycardia Respiratory History: Reports: Asthma, Other (See Below) Other Respiratory History: sports induced asthma Gastrointestinal History: Reports: Hiatal Hernia Genitourinary History: Reports: None 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: 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, Other ASSOCIATE PROPERTY MANAGER History: - 3 Musculoskeletal History: Reports: Arthritis Other Musculoskeletal History: hx: fractre Rt ankle 'hairline', Multiple Sclerosis-is stable, Low back pain Neurological History: Reports: Migraines, MS Other Neuro History: Multiple Sclerosis - 2005, some numbness in right arm, h/o memory disturbance, Psychiatric History: Reports: Anxiety, Depression, PTSD Endocrine/Metabolic History: Reports: Obesity/BMI 30+ Hematologic History: Reports: None Immunologic History: Reports: None Oncologic (Cancer) History: Reports: None Dermatologic History: Reports: None - Infectious Disease History Infectious Disease History: Reports: C-Difficile - Past Surgical History Head Surgeries/Procedures: Reports: None HEENT Surgical History: Reports: Adenoidectomy, Oral Surgery, Tonsillectomy Cardiovascular Surgical History: Reports: Other (See Below) Other Cardiovascular Surgeries/Procedures: heart monitor implanted on left chest Respiratory Surgical History: Reports: None GI Surgical History: Reports: Appendectomy, Cholecystectomy Other GI Surgeries/Procedures: Lap Cholecystectomy Female Surgical History: Reports: Hysterectomy, Tubal Ligation, Other (See Below) Other Female Surgeries/Procedures: bladder lift x2, TVT 2015 Endocrine Surgical History: Reports: None Neurological Surgical History: Reports: None Musculoskeletal Surgical History: Reports: Other (See Below) Other Musculoskeletal Surgeries/Procedures:: wrist surgery-ollie, chest reconstruction due to deformity, rt radial tunnel release 2 months ago Oncologic Surgical History: Reports: None Dermatological Surgical History: Reports: None - History Comment History Comment: etoh "2x a year" Social & Family History - Family History Family Medical History: Noncontributory HEENT: Reports: None Cardiac: Reports: None Respiratory: Reports: None GI: Reports: None : Reports: None OBGYN: Reports: None Musculoskeletal: Reports: Back pain, Chronic Neurological: Reports: None Psychiatric: Reports: Anxiety, Depression Endocrine/Metabolic: Reports: None Hematologic: Reports: None Immunologic: Reports: None Dermatologic: Reports: Eczema Oncologic: Reports: Breast, Prostate, Skin - Tobacco Use Smoking Status *Q: Never Smoker - Caffeine Use Caffeine Use: Reports: Soda - Recreational Drug Use Recreational Drug Use: No ED ROS GENERAL - Review of Systems Review Of Systems: ROS reveals no pertinent complaints other than HPI. ED EXAM, GI/ABD - Physical Exam Exam: See Below (See dictation) Course - Vital Signs Last Recorded V/S: Last Vital Signs Temp 36.2 C 09/22/18 14:47 Pulse 97 09/22/18 14:47 Resp 18 09/22/18 14:47 BP 131/74 09/22/18 14:47 Pulse Ox 100 09/22/18 14:47 - Orders/Labs/Meds Orders: Active Orders 24 hr Category Date Time Status CDIFF TOX A+B [OP] Stat Lab 09/22/18 15:53 Ordered CULTURE STOOL + CAMPY+SHIGATOX [RM] Stat Lab 09/22/18 15:53 Ordered OVA & PARASITES BY IMMUNOASSAY [MREF] Stat Lab 09/22/18 15:53 Ordered Labs: Laboratory Tests 09/22/18 09/22/18 09/22/18 Range/Units 15:43 15:43 16:39 WBC 10.82 (4.0-11.0) K/uL RBC 4.58 (4.30-5.90) M/uL Hgb 14.1 (12.0-16.0) g/dL Hct 42.3 (36.0-46.0) % MCV 92.4 (80.0-98.0) fL MCH 30.8 (27.0-32.0) pg MCHC 33.3 (31.0-37.0) g/dL RDW Std Deviation 43.1 (28.0-62.0) fl RDW Coeff of Rustam 13 (11.0-15.0) % Plt Count 313 (150-400) K/uL MPV 9.20 (7.40-12.00) fL Neut % (Auto) 70.6 (48.0-80.0) % Lymph % (Auto) 21.6 (16.0-40.0) % [place] % (Auto) 6.7 (0.0-15.0) % Eos % (Auto) 0.5 (0.0-7.0) % Baso % (Auto) 0.6 (0.0-1.5) % Neut # (Auto) 7.7 H (1.4-5.7) K/uL Lymph # (Auto) 2.3 (0.6-2.4) K/uL [place] # (Auto) 0.7 (0.0-0.8) K/uL Eos # (Auto) 0.1 (0.0-0.7) K/uL Baso # (Auto) 0.1 (0.0-0.1) K/uL Nucleated RBC % 0.0 /100WBC Nucleated RBCs # 0 K/uL Sodium 140 (136-145) mmol/L Potassium 3.7 (3.5-5.1) mmol/L Chloride 104 (98-107) mmol/L Carbon Dioxide 25.1 (21.0-32.0) mmol/L BUN 10 (7.0-18.0) mg/dL Creatinine 0.9 (0.6-1.0) mg/dL Est Cr Clr Drug Dosing 90.53 mL/min Estimated GFR (MDRD) > 60.0 ml/min Glucose 89 (74-106) mg/dL Calcium 9.0 (8.5-10.1) mg/dL Total Bilirubin 0.6 (0.2-1.0) mg/dL AST 18 (15-37) IU/L ALT 27 (14-63) IU/L Alkaline Phosphatase 63 (46-116) U/L Total Protein 7.7 (6.4-8.2) g/dL Albumin 4.0 (3.4-5.0) g/dL Globulin 3.7 (2.6-4.0) g/dL Albumin/Globulin Ratio 1.1 (0.9-1.6) Lipase 105 (73-393) U/L Urine Color YELLOW Urine Appearance CLEAR Urine pH 7.0 (5.0-8.0) Ur Specific [place] 1.010 (1.001-1.035) Urine Protein NEGATIVE (NEGATIVE) mg/dL Urine Glucose (UA) NEGATIVE (NEGATIVE) mg/dL Urine Ketones NEGATIVE (NEGATIVE) mg/dL Urine Occult Blood TRACE-INTACT H (NEGATIVE) Urine Nitrite NEGATIVE (NEGATIVE) Urine Bilirubin NEGATIVE (NEGATIVE) Urine Urobilinogen 0.2 (<2.0) EU/dL Ur Leukocyte Esterase NEGATIVE (NEGATIVE) Urine RBC 2-3 (0-2/HPF) Urine WBC 1-3 (0-5/HPF) Ur Epithelial Cells MODERATE (NONE-FEW) Urine Bacteria FEW (NEGATIVE) Meds: Medications Discontinued Medications Generic Name Dose Route Start Last Admin Trade Name Freq PRN Reason Stop Dose Admin Sodium Chloride 1,000 mls @ 999 mls/hr 09/22/18 15:19 09/22/18 15:45 Normal Saline IV 09/22/18 16:19 999 mls/hr BOLUS ONE Administration Ketorolac Tromethamine 30 mg 09/22/18 15:21 09/22/18 15:45 Toradol IVPUSH 09/22/18 15:22 30 mg ONETIME ONE Administration Ondansetron HCl 4 mg 09/22/18 15:21 09/22/18 15:45 Zofran IVPUSH 09/22/18 15:22 4 mg ONETIME ONE Administration Departure - Departure Time of Disposition: 17:28 Disposition: Home, Self-Care 01 Clinical Impression: History of Clostridium difficile colitis Abdominal pain Qualifiers: Abdominal location: unspecified location Qualified Code(s): R10.9 - Unspecified abdominal pain - Discharge Information Referrals: Nidhi Garrison MD [Primary Care Provider] - Forms: ED Department Discharge Additional Instructions: The following information is given to patients seen in the emergency department who are being discharged to home. This information is to outline your options for follow-up care. We provide all patients seen in our emergency department with a follow-up referral. The need for follow-up, as well as the timing and circumstances, are variable depending upon the specifics of your emergency department visit. If you don't have a primary care physician on staff, we will provide you with a referral. We always advise you to contact your personal physician following an emergency department visit to inform them of the circumstance of the visit and for follow-up with them and/or the need for any referrals to a consulting specialist. The emergency department will also refer you to a specialist when appropriate. This referral assures that you have the opportunity for follow-up care with a specialist. All of these measure are taken in an effort to provide you with optimal care, which includes your follow-up. Under all circumstances we always encourage you to contact your private physician who remains a resource for coordinating your care. When calling for follow-up care, please make the office aware that this follow-up is from your recent emergency room visit. If for any reason you are refused follow-up, please contact the [facility] Emergency Department at and asked to speak to the emergency department charge nurse. [facility] [address] [place] [address] [id number] 1. You can alternate ibuprofen and Tylenol as directed for pain and discomfort. 2. Stool collection supplies have been given to you. Return to the lab when you have collected a sample. 3. Follow up with your primary care provider as discussed. Return to the ED as needed and as discussed. - My Orders Last 24 Hours: My Active Orders 09/22/18 15:53 CDIFF TOX A+B [OP] Stat CULTURE STOOL + CAMPY+SHIGATOX [RM] Stat OVA & PARASITES BY IMMUNOASSAY [MREF] Stat - Assessment/Plan Last 24 Hours: My Active Orders 09/22/18 15:53 CDIFF TOX A+B [OP] Stat CULTURE STOOL + CAMPY+SHIGATOX [RM] Stat OVA & PARASITES BY IMMUNOASSAY [MREF] Stat
[2018-09-22 16:14] LABS: CHLORIDE,CL 104 mmol/L (98-107); SODIUM,NA 140 mmol/L (136-145)
--- NOTE | 2018-09-22 17:24 | CT ---
INDICATION: Increased abdominal pain. History of C difficile. CT ABDOMEN AND PELVIS WITH CONTRAST TECHNIQUE: Multidetector CT imaging was performed through the abdomen and pelvis following intravenous contrast administration using 100 mL Isovue 370. Coronal and sagittal reconstructions were generated. COMPARISON: 01/19/2017 CT abdomen and pelvis. FINDINGS: Lower chest: Lung bases are clear. There is unchanged chronic deformity of the lower anterior chest wall. Liver: Unremarkable aside from a subcentimeter hypodensity in the right hepatic lobe on image 39 of series 201 which is too small to characterize but likely benign. Gallbladder and bile ducts: Status post cholecystectomy. No biliary dilation identified. Pancreas: Unremarkable. Spleen: Normal. Adrenals: No nodules or masses. Kidneys, ureters, and urinary bladder: No renal masses or hydronephrosis. No bladder mass or definite wall thickening. Gastrointestinal tract: Normal caliber small bowel without wall thickening or obstruction. Appendix not identified. Unremarkable colon, with no findings suggestive of colitis. Vascular structures: Normal for age. Peritoneum: No free air, abscess, or significant free fluid. Lymph nodes: No pathologically enlarged nodes identified. Reproductive organs: Status post hysterectomy. No pelvic masses. Bones: Normal for age. IMPRESSION: 1. No acute abnormality identified. No cause for the patient`s symptoms is demonstrated. 2. Nonacute findings as detailed above. VINICIUS ALLEN MD [employer] Dictated by Damian Allen MD @ 09/22/2018 5:22:51 PM Dictated by: Damian Allen MD @ 09/22/2018 17:23:06 (Electronically Signed)
[2018-09-22 18:03] VITALS: BP 111/77
[2018-09-22] MEDS ORDERED: Iopamidol 755 MG/ML 500 ML Multipack Bottle IVPUSH STA (18:30)
== END 2018-09-22 18:04 | disposition home or self-care (01) ==
LOC: MW.ED 14:16
DX: R10.84 Generalized abdominal pain (principal); I10 Essential (primary) hypertension; J45.909 Unspecified asthma, uncomplicated; F41.9 Anxiety disorder, unspecified; F32.9 Major depressive disorder, single episode, unspecified; Z91.040 Latex allergy status; Z88.8 Allergy status to other drugs, medicaments and biological substances; Z79.899 Other long term (current) drug therapy
CPT/HCPCS: 36415; 74177; 80053; 81001; 83690; 85025; 96361; 96374; 96375; 99284; J1885; J2405; J7040; Q9967

== ENCOUNTER 2018-10-10 13:52 | Emergency (ER) | payer MEDICAID ==
--- NOTE | 2018-10-10 13:53 | EDM.PDOC ---
ED HPI GENERAL MEDICAL PROBLEM - General Stated Complaint: ABD PAIN, LIGHTHEADED X 1 WEEK Time Seen by Provider: 10/10/18 13:53 Source of Information: Reports: Patient History Limitations: Reports: No Limitations - History of Present Illness INITIAL COMMENTS - FREE TEXT/NARRATIVE: History of present illness: []Patient has a history of C. difficile and was seen by her primary doctor last week who repeated a stool test which came back positive for C. difficile again. She found this out by looking at her phone today. She came in to be checked because of this result. Her diarrhea has not changed she denies any fevers she states she feels dizzy and lightheaded. Review of systems: As per history of present illness and below otherwise all systems reviewed and negative. Past medical history: As per history of present illness and as reviewed below otherwise noncontributory. Surgical history: As per history of present illness and as reviewed below otherwise noncontributory. Social history: No reported history of drug or alcohol abuse. Family history: As per history of present illness and as reviewed below otherwise noncontributory. Physical exam: General: Well developed, well nourished in NAD HEENT: Atraumatic, normocephalic, pupils reactive, negative for conjunctival pallor or scleral icterus, mucous membranes moist, throat clear, neck supple, nontender, trachea midline. Lungs: Clear to auscultation, breath sounds equal bilaterally, chest nontender. Heart: S1S2, regular, negative for clicks, rubs, or JVD. Abdomen: NABS, Soft, nondistended, nontender, no rebound or guarding. Negative for masses or hepatosplenomegaly. Negative for costovertebral tenderness. Pelvis: Stable nontender. Genitourinary: Deferred. Rectal: Deferred. Extremities: Atraumatic, negative for cords or calf pain. Neurovascular unremarkable. Neuro: Awake, alert, oriented. Cranial nerves II through XII unremarkable. Cerebellum unremarkable. Motor and sensory unremarkable throughout. Exam nonfocal. Skin:warm and dry Diagnostics: EKG, CBC, chemistry Therapeutics: Zofran, Toradol ED Course: Stable Impression: Chronic diarrhea, positive C. difficile Prescriptions: Plan: Definitive disposition and diagnosis as appropriate pending reevaluation and review of above. abdominal pain Pain Score (Numeric/FACES): 7 - Related Data Allergies Allergy/AdvReac Type Severity Reaction Status Date / Time latex Allergy Severe Hives Verified 10/10/18 14:06 nickel [Nickel] Allergy Severe Rash Verified 10/10/18 14:06 oxycodone [Oxycodone] Allergy Severe Itching Verified 10/10/18 14:06 oxycodone HCl [From Percocet] Allergy Severe Itching Verified 10/10/18 14:06 propoxyphene napsylate Allergy Severe Itching Verified 10/10/18 14:06 [From Darvocet-N 100] terconazole [From Terazol 3] Allergy Severe Swelling Verified 10/10/18 14:06 adhesive tape Allergy Itching Verified 10/10/18 14:06 glatiramer acetate Allergy Hives Verified 10/10/18 14:06 [From Copaxone] morphine Allergy Itching Verified 10/10/18 14:06 sumatriptan [From Imitrex] Allergy Itching Verified 10/10/18 14:06 tioconazole Allergy Itching Verified 10/10/18 14:06 [From Monistat 1 (tioconazole)] Home Meds: Home Meds hydrOXYzine HCl [hydrOXYzine] 1 tab PO ASDIRECTED PRN 04/08/18 [History] lamoTRIgine [Lamictal] 25 mg PO BEDTIME 04/08/18 [History] Venlafaxine [Effexor XR] 225 mg PO DAILY 06/28/18 [History] Verapamil HCl [Verapamil Sr] 120 mg PO BEDTIME 06/28/18 [History] Zaleplon 10 mg PO BEDTIME PRN 06/28/18 [History] Cholecalciferol (Vitamin D3) [Vitamin D3] 5,000 units PO WEEKLY 09/13/18 [ History] Acetaminophen/HYDROcodone [[place] 325-5 MG] 1 tab PO Q4H PRN #30 tablet 09/15/18 [Rx] Past Medical History HEENT History: Reports: Other (See Below) Other HEENT History: glasses Cardiovascular History: Reports: Arrhythmia, Hypertension Other Cardiovascular History: sinus tachycardia Respiratory History: Reports: Asthma, Other (See Below) Other Respiratory History: sports induced asthma Gastrointestinal History: Reports: Hiatal Hernia Genitourinary History: Reports: None MEDIA MARKETING COORDINATOR History: Reports: 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, Other MEDIA MARKETING COORDINATOR History: - 3 Musculoskeletal History: Reports: Arthritis Other Musculoskeletal History: hx: fractre Rt ankle 'hairline', Multiple Sclerosis-is stable, Low back pain Neurological History: Reports: Migraines, MS Other Neuro History: Multiple Sclerosis - 2006, some numbness in right arm, h/o memory disturbance, Psychiatric History: Reports: Anxiety, Depression, PTSD Endocrine/Metabolic History: Reports: Obesity/BMI 30+ Hematologic History: Reports: None Immunologic History: Reports: None Oncologic (Cancer) History: Reports: None Dermatologic History: Reports: None - Infectious Disease History Infectious Disease History: Reports: C-Difficile - Past Surgical History Head Surgeries/Procedures: Reports: None HEENT Surgical History: Reports: Adenoidectomy, Oral Surgery, Tonsillectomy Cardiovascular Surgical History: Reports: Other (See Below) Other Cardiovascular Surgeries/Procedures: heart monitor implanted on left chest Respiratory Surgical History: Reports: None GI Surgical History: Reports: Appendectomy, Cholecystectomy Other GI Surgeries/Procedures: Lap Cholecystectomy Female Surgical History: Reports: Hysterectomy, Tubal Ligation, Other (See Below) Other Female Surgeries/Procedures: bladder lift x2, TVT 2014 Endocrine Surgical History: Reports: None Neurological Surgical History: Reports: None Musculoskeletal Surgical History: Reports: Other (See Below) Other Musculoskeletal Surgeries/Procedures:: wrist surgery-ollie, chest reconstruction due to deformity, rt radial tunnel release 2 months ago Oncologic Surgical History: Reports: None Dermatological Surgical History: Reports: None - History Comment History Comment: etoh "2x a year" Social & Family History - Family History Family Medical History: Noncontributory HEENT: Reports: None Cardiac: Reports: None Respiratory: Reports: None GI: Reports: None : Reports: None OBGYN: Reports: None Musculoskeletal: Reports: Back pain, Chronic Neurological: Reports: None Psychiatric: Reports: Anxiety, Depression Endocrine/Metabolic: Reports: None Hematologic: Reports: None Immunologic: Reports: None Dermatologic: Reports: Eczema Oncologic: Reports: Breast, Prostate, Skin - Caffeine Use Caffeine Use: Reports: Soda ED ROS GENERAL - Review of Systems Review Of Systems: See Below ED EXAM, GENERAL - Physical Exam Exam: See Below Course - Vital Signs Last Recorded V/S: Last Vital Signs Temp 97.3 F 10/10/18 14:06 Pulse 82 10/10/18 14:06 Resp 18 10/10/18 14:06 BP 109/79 10/10/18 14:06 Pulse Ox 97 10/10/18 14:06 - Orders/Labs/Meds Labs: Laboratory Tests 10/10/18 10/10/18 Range/Units 14:23 14:23 WBC 9.78 (4.0-11.0) K/uL RBC 4.49 (4.30-5.90) M/uL Hgb 13.9 (12.0-16.0) g/dL Hct 41.5 (36.0-46.0) % MCV 92.4 (80.0-98.0) fL MCH 31.0 (27.0-32.0) pg MCHC 33.5 (31.0-37.0) g/dL RDW Std Deviation 43.3 (28.0-62.0) fl RDW Coeff of Rustam 13 (11.0-15.0) % Plt Count 298 (150-400) K/uL MPV 9.30 (7.40-12.00) fL Neut % (Auto) 66.7 (48.0-80.0) % Lymph % (Auto) 26.1 (16.0-40.0) % Pepin % (Auto) 5.7 (0.0-15.0) % Eos % (Auto) 1.0 (0.0-7.0) % Baso % (Auto) 0.5 (0.0-1.5) % Neut # (Auto) 6.5 H (1.4-5.7) K/uL Lymph # (Auto) 2.6 H (0.6-2.4) K/uL Pepin # (Auto) 0.6 (0.0-0.8) K/uL Eos # (Auto) 0.1 (0.0-0.7) K/uL Baso # (Auto) 0.1 (0.0-0.1) K/uL Nucleated RBC % 0.0 /100WBC Nucleated RBCs # 0 K/uL Sodium 137 (136-145) mmol/L Potassium 4.1 (3.5-5.1) mmol/L Chloride 103 (98-107) mmol/L Carbon Dioxide 23.6 (21.0-32.0) mmol/L BUN 12 (7.0-18.0) mg/dL Creatinine 1.0 (0.6-1.0) mg/dL Est Cr Clr Drug Dosing 81.47 mL/min Estimated GFR (MDRD) > 60.0 ml/min Glucose 103 (74-106) mg/dL Calcium 8.7 (8.5-10.1) mg/dL Total Bilirubin 0.4 (0.2-1.0) mg/dL AST 15 (15-37) IU/L ALT 18 (14-63) IU/L Alkaline Phosphatase 62 (46-116) U/L Total Protein 7.1 (6.4-8.2) g/dL Albumin 3.7 (3.4-5.0) g/dL Globulin 3.4 (2.6-4.0) g/dL Albumin/Globulin Ratio 1.1 (0.9-1.6) Meds: Medications Discontinued Medications Generic Name Dose Route Start Last Admin Trade Name Freq PRN Reason Stop Dose Admin Ketorolac Tromethamine 60 mg 10/10/18 14:12 10/10/18 14:25 Toradol IM 10/10/18 14:13 60 mg ONETIME ONE Administration Ondansetron HCl 8 mg 10/10/18 14:10 10/10/18 14:26 Zofran Odt PO 10/10/18 14:11 8 mg ONETIME ONE Administration Departure - Departure Time of Disposition: 15:03 Disposition: Home, Self-Care 01 Condition: Good Clinical Impression: Chronic diarrhea - Discharge Information *PRESCRIPTION DRUG MONITORING PROGRAM REVIEWED*: No *COPY OF PRESCRIPTION DRUG MONITORING REPORT IN PATIENT VINCENT: No Referrals: Nidhi Garrison MD [Primary Care Provider] - Additional Instructions: The following information is given to patients seen in the emergency department who are being discharged to home. This information is to outline your options for follow-up care. We provide all patients seen in our emergency department with a follow-up referral. The need for follow-up, as well as the timing and circumstances, are variable depending upon the specifics of your emergency department visit. If you don't have a primary care physician on staff, we will provide you with a referral. We always advise you to contact your personal physician following an emergency department visit to inform them of the circumstance of the visit and for follow-up with them and/or the need for any referrals to a consulting specialist. The emergency department will also refer you to a specialist when appropriate. This referral assures that you have the opportunity for follow-up care with a specialist. All of these measure are taken in an effort to provide you with optimal care, which includes your follow-up. Under all circumstances we always encourage you to contact your private physician who remains a resource for coordinating your care. When calling for follow-up care, please make the office aware that this follow-up is from your recent emergency room visit. If for any reason you are refused follow-up, please contact the [facility] Emergency Department at and asked to speak to the emergency department charge nurse. [facility] [place] [id number]
[2018-10-10] MEDS ORDERED: Sodium Chloride 0.9% 2.5 ML Syringe FLUSH PRN (14:07)
[2018-10-10] MEDS ORDERED: Sodium Chloride 0.9% 10 ML Syringe FLUSH PRN (14:07)
[2018-10-10] MEDS ORDERED: Sodium Chloride 0.9% 1,000 ML IV ONE (14:07)
[2018-10-10] MEDS ORDERED: Ketorolac 30 MG/ML SDV IVPUSH ONE (14:08)
[2018-10-10 14:09] VITALS: BP 109/79
[2018-10-10] MEDS ORDERED: Ondansetron 8 MG Tab.DIS PO ONE (14:10)
[2018-10-10] MEDS ORDERED: Ketorolac 60 MG/2 ML SDV IM ONE (14:12)
[2018-10-10 14:51] LABS: CHLORIDE,CL 103 mmol/L (98-107); SODIUM,NA 137 mmol/L (136-145)
== END 2018-10-10 15:20 | disposition home or self-care (01) ==
LOC: MW.ED 13:52
DX: K52.9 Noninfective gastroenteritis and colitis, unspecified (principal); I10 Essential (primary) hypertension; F41.9 Anxiety disorder, unspecified; F32.9 Major depressive disorder, single episode, unspecified; Z79.899 Other long term (current) drug therapy; Z88.6 Allergy status to analgesic agent; Z88.5 Allergy status to narcotic agent; Z88.8 Allergy status to other drugs, medicaments and biological substances; Z91.09 Other allergy status, other than to drugs and biological substances; Z91.040 Latex allergy status
CPT/HCPCS: 36415; 80053; 85025; 93005; 96372; 99284; A9270; J1885; 99283

== ENCOUNTER 2019-02-05 23:15 | Emergency (ER) | payer MEDICAID ==
[2019-02-05] MEDS ORDERED: Sodium Chloride 0.9% 10 ML Syringe FLUSH PRN (23:36)
[2019-02-05] MEDS ORDERED: Ketorolac 30 MG/ML SDV IVPUSH ONE (23:36)
[2019-02-05] MEDS ORDERED: Sodium Chloride 0.9% 2.5 ML Syringe FLUSH PRN (23:36)
--- NOTE | 2019-02-05 23:39 | EDM.PDOC ---
ED HPI GENERAL MEDICAL PROBLEM - General Chief Complaint: Abdominal Pain Stated Complaint: PAIN ON RIGHT SIDE Time Seen by Provider: 02/05/19 23:28 - History of Present Illness INITIAL COMMENTS - FREE TEXT/NARRATIVE: HISTORY AND PHYSICAL: History of present illness: The patient is a 33-year-old female with a history of a partial hysterectomy and appendectomy who has no recall of any history of ovarian cysts who presents with sudden onset of right lower quadrant pain that occurred while she was having sexual intercourse. The patient said she had a complete normal day today without nausea vomiting diarrhea fevers chills flank pain or urinary issues. She says that the pain started suddenly during intercourse and she has not had any vaginal bleeding or drainage. She says the pain is localized to the right lower quadrant and radiates into her thigh she has no flank pain and the remainder of her abdomen is without pain. She did not take anything prior to coming here for the discomfort and says that it is very uncomfortable. The patient has never had a kidney stone and has not had hematuria or dysuria in the last 24 hours. Review of systems: As per history of present illness and below otherwise all systems reviewed and negative. Past medical history: As per history of present illness and as reviewed below otherwise noncontributory. Surgical history: As per history of present illness and as reviewed below otherwise noncontributory. Social history: No reported history of drug or alcohol abuse. Family history: As per history of present illness and as reviewed below otherwise noncontributory. Physical exam: General: Well-developed well-nourished overweight female who is nontoxic but tearful on my examination. She can move easily in the bed without distress HEENT: Atraumatic, normocephalic, negative for conjunctival pallor or scleral icterus, mucous membranes moist, throat clear, neck supple, nontender, trachea midline. Lungs: Clear to auscultation, breath sounds equal bilaterally, chest nontender. Heart: S1S2, regular rate and rhythm on my evaluation. Abdomen: Soft, nondistended, bowel sounds are hypoactive. There is moderate right lower quadrant tenderness on deep palpation without rebound or guarding and the remainder the abdomen is nontender. Negative for masses or hepatosplenomegaly. Negative for costovertebral tenderness. Pelvis: Stable nontender. Genitourinary: Deferred. Rectal: Deferred. Extremities: Atraumatic, negative for cords or calf pain. Neurovascular unremarkable. Neuro: Awake, alert, oriented. Cranial nerves II through XII unremarkable. Cerebellum unremarkable. Motor and sensory unremarkable throughout. Exam nonfocal. Diagnostics: UA with reflex , urine culture CBC CMP pelvic ultrasound , CT scan of the abdomen and pelvis Therapeutics: IV placement Toradol Nubain Patient and significant other at bedside are aware of all testing results and that there is no significant findings for an acute pain like she is experiencing. She is aware of the large colonic load of stool in the right hemicolon which may have triggered some bowel discomfort. She currently is feeling better and is much more relaxed. I've advised her to have close follow- up with her retail specialist at [facility] and to call them on Thursday morning for follow-up care and possible repeat ultrasound if the pain is persisting. I've advised her on strict pelvic rest and to the counter meds for discomfort such as ibuprofen/Aleve Impression: Right lower quadrant pain stable etiology unclear; mild constipation Definitive disposition and diagnosis as appropriate pending reevaluation and review of above. RLQ abdomen Pain Score (Numeric/FACES): 8 - Related Data Allergies Allergy/AdvReac Type Severity Reaction Status Date / Time latex Allergy Severe Hives Verified 02/05/19 23:29 nickel [Nickel] Allergy Severe Rash Verified 02/05/19 23:29 oxycodone [Oxycodone] Allergy Severe Itching Verified 02/05/19 23:29 oxycodone HCl [From Percocet] Allergy Severe Itching Verified 02/05/19 23:29 propoxyphene napsylate Allergy Severe Itching Verified 02/05/19 23:29 [From Darvocet-N 100] terconazole [From Terazol 3] Allergy Severe Swelling Verified 02/05/19 23:29 adhesive tape Allergy Itching Verified 02/05/19 23:29 glatiramer acetate Allergy Hives Verified 02/05/19 23:29 [From Copaxone] morphine Allergy Itching Verified 02/05/19 23:29 sumatriptan [From Imitrex] Allergy Itching Verified 02/05/19 23:29 tioconazole Allergy Itching Verified 02/05/19 23:29 [From Monistat 1 (tioconazole)] Home Meds: Home Meds Venlafaxine [Effexor XR] 150 mg PO DAILY 06/28/18 [History] traZODone HCl [Trazodone HCl] 100 mg PO BEDTIME 02/05/19 [History] Past Medical History HEENT History: Reports: Other (See Below) Other HEENT History: glasses Cardiovascular History: Reports: Arrhythmia, Hypertension Other Cardiovascular History: sinus tachycardia Respiratory History: Reports: Asthma, Other (See Below) Other Respiratory History: sports induced asthma Gastrointestinal History: Reports: Hiatal Hernia Genitourinary History: Reports: None CUSTOMER SUPPORT ADVISOR History: Reports: 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, Other CUSTOMER SUPPORT ADVISOR History: - 3 Musculoskeletal History: Reports: Arthritis Other Musculoskeletal History: hx: fractre Rt ankle 'hairline', Multiple Sclerosis-is stable, Low back pain Neurological History: Reports: Migraines, MS Other Neuro History: Multiple Sclerosis - 2005, some numbness in right arm, h/o memory disturbance, Psychiatric History: Reports: Anxiety, Depression, PTSD Endocrine/Metabolic History: Reports: Obesity/BMI 30+ Hematologic History: Reports: None Immunologic History: Reports: None Oncologic (Cancer) History: Reports: None Dermatologic History: Reports: None - Infectious Disease History Infectious Disease History: Reports: C-Difficile - Past Surgical History Head Surgeries/Procedures: Reports: None HEENT Surgical History: Reports: Adenoidectomy, Oral Surgery, Tonsillectomy Cardiovascular Surgical History: Reports: Other (See Below) Other Cardiovascular Surgeries/Procedures: heart monitor implanted on left chest ; chest reconstruction Respiratory Surgical History: Reports: None GI Surgical History: Reports: Appendectomy, Cholecystectomy Other GI Surgeries/Procedures: Lap Cholecystectomy Female Surgical History: Reports: Hysterectomy, Tubal Ligation, Other (See Below) Other Female Surgeries/Procedures: bladder lift x2, TVT 2014 Endocrine Surgical History: Reports: None Neurological Surgical History: Reports: None Musculoskeletal Surgical History: Reports: Other (See Below) Other Musculoskeletal Surgeries/Procedures:: wrist surgery-ollie, chest reconstruction due to deformity, rt radial tunnel release 2 months ago Oncologic Surgical History: Reports: None Dermatological Surgical History: Reports: None - History Comment History Comment: etoh "2x a year" Social & Family History - Family History Family Medical History: Noncontributory HEENT: Reports: None Cardiac: Reports: None Respiratory: Reports: None GI: Reports: None : Reports: None OBGYN: Reports: None Musculoskeletal: Reports: Back pain, Chronic Neurological: Reports: None Psychiatric: Reports: Anxiety, Depression Endocrine/Metabolic: Reports: None Hematologic: Reports: None Immunologic: Reports: None Dermatologic: Reports: Eczema Oncologic: Reports: Breast, Prostate, Skin - Tobacco Use Smoking Status *Q: Never Smoker - Caffeine Use Caffeine Use: Reports: Soda - Recreational Drug Use Recreational Drug Use: No ED ROS GENERAL - Review of Systems Review Of Systems: ROS reveals no pertinent complaints other than HPI. ED EXAM, GENERAL - Physical Exam Exam: See Below (See dictation) Course - Vital Signs Last Recorded V/S: Last Vital Signs Temp 36.3 C 02/05/19 23:19 Pulse 81 02/06/19 01:00 Resp 17 02/06/19 01:00 BP 108/70 02/06/19 01:00 Pulse Ox 97 02/06/19 01:00 - Orders/Labs/Meds Orders: Active Orders 24 hr Category Date Time Status CULTURE URINE [RM] Stat Lab 02/05/19 23:43 Received Sodium Chloride 0.9% [Saline Flush] Med 02/05/19 23:36 Active 10 ml FLUSH ASDIRECTED PRN Sodium Chloride 0.9% [Saline Flush] Med 02/05/19 23:36 Active 2.5 ml FLUSH ASDIRECTED PRN Saline Lock Insert [OM.PC] Stat Oth 02/05/19 23:34 Ordered Medication Orders Sodium Chloride (Saline Flush) 10 ml FLUSH ASDIRECTED PRN PRN Reason: Keep Vein Open Sodium Chloride (Saline Flush) 2.5 ml FLUSH ASDIRECTED PRN PRN Reason: Keep Vein Open Labs: Laboratory Tests 02/05/19 02/05/19 02/05/19 Range/Units 23:43 23:48 23:48 WBC 12.40 H (4.0-11.0) K/uL RBC 4.47 (4.30-5.90) M/uL Hgb 13.7 (12.0-16.0) g/dL Hct 41.1 (36.0-46.0) % MCV 91.9 (80.0-98.0) fL MCH 30.6 (27.0-32.0) pg MCHC 33.3 (31.0-37.0) g/dL RDW Std Deviation 42.2 (28.0-62.0) fl RDW Coeff of Rustam 13 (11.0-15.0) % Plt Count 287 (150-400) K/uL MPV 9.70 (7.40-12.00) fL Neut % (Auto) 63.7 (48.0-80.0) % Lymph % (Auto) 27.8 (16.0-40.0) % [place] % (Auto) 7.1 (0.0-15.0) % Eos % (Auto) 0.9 (0.0-7.0) % Baso % (Auto) 0.5 (0.0-1.5) % Neut # (Auto) 7.9 H (1.4-5.7) K/uL Lymph # (Auto) 3.5 H (0.6-2.4) K/uL [place] # (Auto) 0.9 H (0.0-0.8) K/uL Eos # (Auto) 0.1 (0.0-0.7) K/uL Baso # (Auto) 0.1 (0.0-0.1) K/uL Nucleated RBC % 0.0 /100WBC Nucleated RBCs # 0 K/uL Sodium 140 (136-145) mmol/L Potassium 3.7 (3.5-5.1) mmol/L Chloride 104 (98-107) mmol/L Carbon Dioxide 27.1 (21.0-32.0) mmol/L BUN 10 (7.0-18.0) mg/dL Creatinine 1.1 H (0.6-1.0) mg/dL Est Cr Clr Drug Dosing 73.38 mL/min Estimated GFR (MDRD) 57.2 ml/min Glucose 68 L (74-106) mg/dL Calcium 9.0 (8.5-10.1) mg/dL Total Bilirubin 0.2 (0.2-1.0) mg/dL AST 12 L (15-37) IU/L ALT 18 (14-63) IU/L Alkaline Phosphatase 68 (46-116) U/L Total Protein 7.3 (6.4-8.2) g/dL Albumin 3.7 (3.4-5.0) g/dL Globulin 3.6 (2.6-4.0) g/dL Albumin/Globulin Ratio 1.0 (0.9-1.6) Urine Color YELLOW Urine Appearance SLT CLOUDY Urine pH 7.5 (5.0-8.0) Ur Specific [place] 1.015 (1.001-1.035) Urine Protein NEGATIVE (NEGATIVE) mg/dL Urine Glucose (UA) NEGATIVE (NEGATIVE) mg/dL Urine Ketones NEGATIVE (NEGATIVE) mg/dL Urine Occult Blood NEGATIVE (NEGATIVE) Urine Nitrite POSITIVE H (NEGATIVE) Urine Bilirubin NEGATIVE (NEGATIVE) Urine Urobilinogen 0.2 (<2.0) EU/dL Ur Leukocyte Esterase NEGATIVE (NEGATIVE) Urine RBC 1-3 (0-2/HPF) Urine WBC 0-2 (0-5/HPF) Ur Epithelial Cells MANY (NONE-FEW) Urine Bacteria RARE (NEGATIVE) Meds: Medications Generic Name Dose Route Start Last Admin Trade Name Freq PRN Reason Stop Dose Admin Sodium Chloride 10 ml 02/05/19 23:36 Saline Flush FLUSH ASDIRECTED PRN Keep Vein Open Sodium Chloride 2.5 ml 02/05/19 23:36 Saline Flush FLUSH ASDIRECTED PRN Keep Vein Open Discontinued Medications Generic Name Dose Route Start Last Admin Trade Name Bess PRN Reason Stop Dose Admin Ketorolac Tromethamine 30 mg 02/05/19 23:36 02/05/19 23:58 Toradol IVPUSH 02/05/19 23:37 30 mg ONETIME ONE Administration Nalbuphine HCl 10 mg 02/06/19 00:34 02/06/19 00:55 Nubain IVPUSH 02/06/19 00:35 10 mg ONETIME ONE Administration Ondansetron HCl 4 mg 02/05/19 23:55 02/05/19 23:56 Zofran IVPUSH 02/05/19 23:56 4 mg ONETIME ONE Administration Ondansetron HCl Confirm 02/05/19 23:53 02/05/19 23:58 Zofran Administered 02/05/19 23:54 Not Given Dose 4 mg .ROUTE .STK-MED ONE Departure - Departure Time of Disposition: 02:17 Disposition: Home, Self-Care 01 Condition: Good Clinical Impression: Abdominal pain Qualifiers: Abdominal location: right lower quadrant Qualified Code(s): R10.31 - Right lower quadrant pain - Discharge Information Referrals: Nidhi Garrison MD [Primary Care Provider] - Forms: ED Department Discharge Additional Instructions: The following information is given to patients seen in the emergency department who are being discharged to home. This information is to outline your options for follow-up care. We provide all patients seen in our emergency department with a follow-up referral. The need for follow-up, as well as the timing and circumstances, are variable depending upon the specifics of your emergency department visit. If you don't have a primary care physician on staff, we will provide you with a referral. We always advise you to contact your personal physician following an emergency department visit to inform them of the circumstance of the visit and for follow-up with them and/or the need for any referrals to a consulting specialist. The emergency department will also refer you to a specialist when appropriate. This referral assures that you have the opportunity for followup care with a specialist. All of these measure are taken in an effort to provide you with optimal care, which includes your followup. Under all circumstances we always encourage you to contact your private physician who remains a resource for coordinating your care. When calling for followup care, please make the office aware that this follow-up is from your recent emergency room visit. If for any reason you are refused follow-up, please contact the [facility] emergency department at and ask to speak to the emergency department charge nurse. [address] [address] Pelvic rest until you're followed up in the clinic and call your provider on Thursday to schedule a follow-up appointment to reevaluate this pain and provide further testing and evaluation as needed. Use [id number] Tylenol and ibuprofen/Aleve for pain management. Return to ER as needed and as discussed - My Orders Last 24 Hours: My Active Orders 02/05/19 23:34 Saline Lock Insert [OM.PC] Stat 02/05/19 23:36 Sodium Chloride 0.9% [Saline Flush] 10 ml FLUSH ASDIRECTED PRN Sodium Chloride 0.9% [Saline Flush] 2.5 ml FLUSH ASDIRECTED PRN 02/05/19 23:43 CULTURE URINE [RM] Stat - Assessment/Plan Last 24 Hours: My Active Orders 02/05/19 23:34 Saline Lock Insert [OM.PC] Stat 02/05/19 23:36 Sodium Chloride 0.9% [Saline Flush] 10 ml FLUSH ASDIRECTED PRN Sodium Chloride 0.9% [Saline Flush] 2.5 ml FLUSH ASDIRECTED PRN 02/05/19 23:43 CULTURE URINE [RM] Stat
[2019-02-05] MEDS ORDERED: Ondansetron 4 MG/2 ML SDV ONE (23:53)
[2019-02-05] MEDS ORDERED: Ondansetron 4 MG/2 ML SDV IVPUSH ONE (23:55)
--- NOTE | 2019-02-06 00:22 | US ---
INDICATION: Right lower quadrant pain TECHNIQUE: Multiple transvaginal sonographic images of the pelvis COMPARISON: None available FINDINGS: Uterus: Status post hysterectomy. Right ovary: 2.2 x 1.3 x 1.2 cm. No ovarian or adnexal masses. Arterial and venous blood flow documented. Left ovary: 1.9 x 1.3 x 1.1 cm. No ovarian or adnexal masses. Arterial and venous blood flow documented. Cul-de-sac: No significant free fluid. IMPRESSION: Status post hysterectomy. Unremarkable ovaries. Bilateral ovarian Doppler flow documented. Dictated by Nam Mccullough MD @ 02/06/2019 12:20:36 AM Dictated by: Nam Mccullough MD @ 02/06/2019 00:20:44 (Electronically Signed)
[2019-02-06 00:26] LABS: CARBON DIOXIDE,CO2 27.1 mmol/L (21.0-32.0); POTASSIUM,K 3.7 mmol/L (3.5-5.1)
[2019-02-06] MEDS ORDERED: Nalbuphine 10 MG/1 ML Vial IVPUSH ONE (00:34)
--- NOTE | 2019-02-06 01:32 | CT ---
INDICATION: Right lower quadrant abdominal pain. Prior appendectomy and partial hysterectomy. TECHNIQUE: Noncontrast CT of the abdomen and pelvis. COMPARISON: September 22, 2018. FINDINGS: Surgically absent gallbladder. Probable cardiac event recorder projected over the lower left hemithorax. Presumed supracervical hysterectomy given the history provided. Absent appendix. No bowel obstruction ileus. No ascites or lymphadenopathy. Moderate amount of colonic stool in the right hemicolon. This could reflect some degree of mild chronic constipation in the proper clinical setting. No free air. The unenhanced liver, spleen, pancreas, adrenal glands, and kidneys are normal. Normal caliber abdominal aorta and iliac arteries. Normal inferior vena cava. Both inguinal regions are unremarkable. Few tiny calcified pelvic phleboliths. Normal included skeleton. Clear included lung bases. IMPRESSION: Postsurgical changes described. Moderate amount of colonic stool. Possible mild colonic constipation. Please correlate clinically. Please note that all CT scans at this facility use dose modulation, iterative reconstruction, and/or weight-based dosing when appropriate to reduce radiation dose to as low as reasonably achievable. Dictated by Rodrigo Rodriguez MD @ Feb 06 2019 1:27AM Signed by Dr. Rodrigo Rodriguez @ Feb 06 2019 1:32AM
[2019-02-06 02:30] VITALS: BP 105/66; PULSE 80
== END 2019-02-06 02:29 | disposition home or self-care (01) ==
LOC: MW.ED 23:15
DX: K59.00 Constipation, unspecified (principal); I10 Essential (primary) hypertension; F41.9 Anxiety disorder, unspecified; F32.9 Major depressive disorder, single episode, unspecified; E66.9 Obesity, unspecified; Z68.34 Body mass index [BMI] 34.0-34.9, adult; Z79.899 Other long term (current) drug therapy; Z91.040 Latex allergy status; Z91.048 Other nonmedicinal substance allergy status; Z88.5 Allergy status to narcotic agent; Z88.8 Allergy status to other drugs, medicaments and biological substances; Z90.49 Acquired absence of other specified parts of digestive tract; Z90.710 Acquired absence of both cervix and uterus
CPT/HCPCS: 36415; 74176; 76830; 80053; 81001; 85025; 87086; 96374; 96375; 99284; J1885; J2300; J2405

== ENCOUNTER 2019-02-07 15:43 | Emergency (ER) | payer MEDICAID ==
--- NOTE | 2019-02-07 15:49 | EDM.PDOC ---
ED HPI GENERAL MEDICAL PROBLEM - General Chief Complaint: Chest Pain Stated Complaint: CHEST PAIN Time Seen by Provider: 02/07/19 15:48 Source of Information: Reports: Patient History Limitations: Reports: No Limitations - History of Present Illness INITIAL COMMENTS - FREE TEXT/NARRATIVE: History of present illness: []Patient started having chest pain and abdominal pain around 13:00. Pain is substernal, sharp and pressure nonradiating dizziness .She went to see her doctor at [facility] and when she complained of chest pain and ambulance was called and she was sent to the emergency room for further evaluation. Patient has been evaluated in the past by Dr. Humphrey for tachycardia and is supposed to follow-up in [facility] for further testing. Patient has chronic migraines and has had a migraine for 4 days that she has been taking her usual medicines for. She denies any change in the migraine. She was seen here 2 nights ago for pelvic pain and had a full workup done which was negative. Review of systems: As per history of present illness and below otherwise all systems reviewed and negative. Past medical history: As per history of present illness and as reviewed below otherwise noncontributory. Surgical history: As per history of present illness and as reviewed below otherwise noncontributory. Social history: No reported history of drug or alcohol abuse. Family history: As per history of present illness and as reviewed below otherwise noncontributory. Physical exam: General: Well developed, well nourished in NAD HEENT: Atraumatic, normocephalic, pupils reactive, negative for conjunctival pallor or scleral icterus, mucous membranes moist, throat clear, neck supple, nontender, trachea midline. Lungs: Clear to auscultation, breath sounds equal bilaterally, chest nontender. Heart: S1S2, regular, negative for clicks, rubs, or JVD. Abdomen: NABS, Soft, nondistended, nontender. Negative for masses or hepatosplenomegaly. Negative for costovertebral tenderness. Pelvis: Stable nontender. Genitourinary: Deferred. Rectal: Deferred. Extremities: Atraumatic, negative for cords or calf pain. Neurovascular unremarkable. Neuro: Awake, alert, oriented. Cranial nerves II through XII unremarkable. Cerebellum unremarkable. Motor and sensory unremarkable throughout. Exam nonfocal. Skin:warm and dry Diagnostics: EKG, chest x-ray, CBC, chemistry, troponin, d-dimer all negative Therapeutics: Patient requested Tylenol ED Course: Stable Impression: Chest pain, abdominal pain, migraine headache Prescriptions: none Plan: return if symptoms worsen or change, follow up with your primary care. Definitive disposition and diagnosis as appropriate pending reevaluation and review of above. chest Pain Score (Numeric/FACES): 7 - Related Data Allergies Allergy/AdvReac Type Severity Reaction Status Date / Time latex Allergy Severe Hives Verified 02/07/19 15:57 nickel [Nickel] Allergy Severe Rash Verified 02/07/19 15:57 oxycodone [Oxycodone] Allergy Severe Itching Verified 02/07/19 15:57 oxycodone HCl [From Percocet] Allergy Severe Itching Verified 02/07/19 15:57 propoxyphene napsylate Allergy Severe Itching Verified 02/07/19 15:57 [From Darvocet-N 100] terconazole [From Terazol 3] Allergy Severe Swelling Verified 02/07/19 15:57 adhesive tape Allergy Itching Verified 02/07/19 15:57 glatiramer acetate Allergy Hives Verified 02/07/19 15:57 [From Copaxone] morphine Allergy Itching Verified 02/07/19 15:57 sumatriptan [From Imitrex] Allergy Itching Verified 02/07/19 15:57 tioconazole Allergy Itching Verified 02/05/19 23:29 [From Monistat 1 (tioconazole)] Home Meds: Home Meds Venlafaxine [Effexor XR] 150 mg PO DAILY 06/28/18 [History] traZODone HCl [Trazodone HCl] 100 mg PO BEDTIME 02/05/19 [History] Past Medical History HEENT History: Reports: Other (See Below) Other HEENT History: glasses Cardiovascular History: Reports: Arrhythmia, Hypertension Other Cardiovascular History: sinus tachycardia Respiratory History: Reports: Asthma, Other (See Below) Other Respiratory History: sports induced asthma Gastrointestinal History: Reports: Hiatal Hernia Genitourinary History: Reports: None [employer] History: Reports: 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, Other [employer] History: - 3 Musculoskeletal History: Reports: Arthritis Other Musculoskeletal History: hx: fractre Rt ankle 'hairline', Multiple Sclerosis-is stable, Low back pain Neurological History: Reports: Migraines, MS Other Neuro History: Multiple Sclerosis - 2006, some numbness in right arm, h/o memory disturbance, Psychiatric History: Reports: Anxiety, Depression, PTSD Endocrine/Metabolic History: Reports: Obesity/BMI 30+ Hematologic History: Reports: None Immunologic History: Reports: None Oncologic (Cancer) History: Reports: None Dermatologic History: Reports: None - Infectious Disease History Infectious Disease History: Reports: C-Difficile - Past Surgical History Head Surgeries/Procedures: Reports: None HEENT Surgical History: Reports: Adenoidectomy, Oral Surgery, Tonsillectomy Cardiovascular Surgical History: Reports: Other (See Below) Other Cardiovascular Surgeries/Procedures: heart monitor implanted on left chest ; chest reconstruction Respiratory Surgical History: Reports: None GI Surgical History: Reports: Appendectomy, Cholecystectomy Other GI Surgeries/Procedures: Lap Cholecystectomy Female Surgical History: Reports: Hysterectomy, Tubal Ligation, Other (See Below) Other Female Surgeries/Procedures: bladder lift x2, TVT 2014 Endocrine Surgical History: Reports: None Neurological Surgical History: Reports: None Musculoskeletal Surgical History: Reports: Other (See Below) Other Musculoskeletal Surgeries/Procedures:: wrist surgery-ollie, chest reconstruction due to deformity, rt radial tunnel release 2 months ago Oncologic Surgical History: Reports: None Dermatological Surgical History: Reports: None - History Comment History Comment: etoh "2x a year" Social & Family History - Family History Family Medical History: Noncontributory HEENT: Reports: None Cardiac: Reports: None Respiratory: Reports: None GI: Reports: None : Reports: None OBGYN: Reports: None Musculoskeletal: Reports: Back pain, Chronic Neurological: Reports: None Psychiatric: Reports: Anxiety, Depression Endocrine/Metabolic: Reports: None Hematologic: Reports: None Immunologic: Reports: None Dermatologic: Reports: Eczema Oncologic: Reports: Breast, Prostate, Skin - Caffeine Use Caffeine Use: Reports: Soda ED ROS GENERAL - Review of Systems Review Of Systems: See Below ED EXAM, GENERAL - Physical Exam Exam: See Below Course - Vital Signs Last Recorded V/S: Last Vital Signs Temp 97.4 F 02/07/19 15:55 Pulse 106 H 02/07/19 16:35 Resp 18 02/07/19 16:35 BP 117/74 02/07/19 16:35 Pulse Ox 100 02/07/19 16:35 - Orders/Labs/Meds Orders: Active Orders 24 hr Category Date Time Status EKG Documentation Completion [RC] STAT Care 02/07/19 15:50 Active Saline Lock Insert [OM.PC] Stat Oth 02/07/19 15:50 Ordered Labs: Laboratory Tests 02/07/19 02/07/19 02/07/19 Range/Units 15:50 15:50 15:50 WBC 11.02 H (4.0-11.0) K/uL RBC 4.48 (4.30-5.90) M/uL Hgb 13.8 (12.0-16.0) g/dL Hct 41.5 (36.0-46.0) % MCV 92.6 (80.0-98.0) fL MCH 30.8 (27.0-32.0) pg MCHC 33.3 (31.0-37.0) g/dL RDW Std Deviation 43.0 (28.0-62.0) fl RDW Coeff of Rustam 13 (11.0-15.0) % Plt Count 258 (150-400) K/uL MPV 9.40 (7.40-12.00) fL Neut % (Auto) 81.8 H (48.0-80.0) % Lymph % (Auto) 12.0 L (16.0-40.0) % Granite % (Auto) 5.4 (0.0-15.0) % Eos % (Auto) 0.6 (0.0-7.0) % Baso % (Auto) 0.2 (0.0-1.5) % Neut # (Auto) 9.0 H (1.4-5.7) K/uL Lymph # (Auto) 1.3 (0.6-2.4) K/uL Granite # (Auto) 0.6 (0.0-0.8) K/uL Eos # (Auto) 0.1 (0.0-0.7) K/uL Baso # (Auto) 0.0 (0.0-0.1) K/uL Nucleated RBC % 0.0 /100WBC Nucleated RBCs # 0 K/uL D-Dimer, Quantitative (0.0-0.50) mg/L FEU Sodium 139 (136-145) mmol/L Potassium 3.9 (3.5-5.1) mmol/L Chloride 105 (98-107) mmol/L Carbon Dioxide 22.9 (21.0-32.0) mmol/L BUN 9 (7.0-18.0) mg/dL Creatinine 0.9 (0.6-1.0) mg/dL Est Cr Clr Drug Dosing 89.69 mL/min Estimated GFR (MDRD) > 60.0 ml/min Glucose 95 (74-106) mg/dL Calcium 8.7 (8.5-10.1) mg/dL Total Bilirubin 0.4 (0.2-1.0) mg/dL AST 18 (15-37) IU/L ALT 17 (14-63) IU/L Alkaline Phosphatase 56 (46-116) U/L Troponin I < 0.050 (0.000-0.056) ng/mL Total Protein 6.8 (6.4-8.2) g/dL Albumin 3.3 L (3.4-5.0) g/dL Globulin 3.5 (2.6-4.0) g/dL Albumin/Globulin Ratio 0.9 (0.9-1.6) 02/07/19 Range/Units 15:50 WBC (4.0-11.0) K/uL RBC (4.30-5.90) M/uL Hgb (12.0-16.0) g/dL Hct (36.0-46.0) % MCV (80.0-98.0) fL MCH (27.0-32.0) pg MCHC (31.0-37.0) g/dL RDW Std Deviation (28.0-62.0) fl RDW Coeff of Rustam (11.0-15.0) % Plt Count (150-400) K/uL MPV (7.40-12.00) fL Neut % (Auto) (48.0-80.0) % Lymph % (Auto) (16.0-40.0) % Granite % (Auto) (0.0-15.0) % Eos % (Auto) (0.0-7.0) % Baso % (Auto) (0.0-1.5) % Neut # (Auto) (1.4-5.7) K/uL Lymph # (Auto) (0.6-2.4) K/uL Granite # (Auto) (0.0-0.8) K/uL Eos # (Auto) (0.0-0.7) K/uL Baso # (Auto) (0.0-0.1) K/uL Nucleated RBC % /100WBC Nucleated RBCs # K/uL D-Dimer, Quantitative 0.39 (0.0-0.50) mg/L FEU Sodium (136-145) mmol/L Potassium (3.5-5.1) mmol/L Chloride (98-107) mmol/L Carbon Dioxide (21.0-32.0) mmol/L BUN (7.0-18.0) mg/dL Creatinine (0.6-1.0) mg/dL Est Cr Clr Drug Dosing mL/min Estimated GFR (MDRD) ml/min Glucose (74-106) mg/dL Calcium (8.5-10.1) mg/dL Total Bilirubin (0.2-1.0) mg/dL AST (15-37) IU/L ALT (14-63) IU/L Alkaline Phosphatase (46-116) U/L Troponin I (0.000-0.056) ng/mL Total Protein (6.4-8.2) g/dL Albumin (3.4-5.0) g/dL Globulin (2.6-4.0) g/dL Albumin/Globulin Ratio (0.9-1.6) Meds: Medications Discontinued Medications Generic Name Dose Route Start Last Admin Trade Name Freq PRN Reason Stop Dose Admin Acetaminophen 650 mg 02/07/19 16:15 02/07/19 16:33 Tylenol PO 02/07/19 16:16 650 mg NOW ONE Administration Aspirin 324 mg 02/07/19 16:14 02/07/19 16:35 Aspirin PO 02/07/19 16:15 Not Given ONETIME ONE Sodium Chloride 1,000 mls @ 999 mls/hr 02/07/19 15:59 02/07/19 16:06 Normal Saline IV 02/07/19 16:59 999 mls/hr .Bolus ONE Administration Sodium Chloride 10 ml 02/07/19 15:50 02/07/19 16:07 Saline Flush FLUSH 10 ml ASDIRECTED PRN Administration Keep Vein Open Sodium Chloride 2.5 ml 02/07/19 15:50 02/07/19 16:07 Saline Flush FLUSH 2.5 ml ASDIRECTED PRN Administration Keep Vein Open Departure - Departure Time of Disposition: 17:10 Disposition: Home, Self-Care 01 Condition: Good Clinical Impression: Nonspecific chest pain - Discharge Information *PRESCRIPTION DRUG MONITORING PROGRAM REVIEWED*: No *COPY OF PRESCRIPTION DRUG MONITORING REPORT IN PATIENT VINCENT: No Instructions: Nonspecific Chest Pain, [id number] Referrals: PCP,Unknown [Primary Care Provider] - Forms: ED Department Discharge Additional Instructions: The following information is given to patients seen in the emergency department who are being discharged to home. This information is to outline your options for follow-up care. We provide all patients seen in our emergency department with a follow-up referral. The need for follow-up, as well as the timing and circumstances, are variable depending upon the specifics of your emergency department visit. If you don't have a primary care physician on staff, we will provide you with a referral. We always advise you to contact your personal physician following an emergency department visit to inform them of the circumstance of the visit and for follow-up with them and/or the need for any referrals to a consulting specialist. The emergency department will also refer you to a specialist when appropriate. This referral assures that you have the opportunity for follow-up care with a specialist. All of these measure are taken in an effort to provide you with optimal care, which includes your follow-up. Under all circumstances we always encourage you to contact your private physician who remains a resource for coordinating your care. When calling for follow-up care, please make the office aware that this follow-up is from your recent emergency room visit. If for any reason you are refused follow-up, please contact the [facility] Emergency Department at and asked to speak to the emergency department charge nurse. Take meds as directed, follow up with your primary care physician, return to ER if symptoms worsen or change. [facility] [address] [place] [id number] - My Orders Last 24 Hours: My Active Orders 02/07/19 15:50 EKG Documentation Completion [RC] STAT Saline Lock Insert [OM.PC] Stat - Assessment/Plan Last 24 Hours: My Active Orders 02/07/19 15:50 EKG Documentation Completion [RC] STAT Saline Lock Insert [OM.PC] Stat
[2019-02-07] MEDS ORDERED: Sodium Chloride 0.9% 2.5 ML Syringe FLUSH PRN (15:50)
[2019-02-07] MEDS ORDERED: Sodium Chloride 0.9% 10 ML Syringe FLUSH PRN (15:50)
[2019-02-07] MEDS ORDERED: Sodium Chloride 0.9% 1,000 ML IV ONE (15:59)
[2019-02-07] MEDS ORDERED: Aspirin 81 MG Tab.Chew PO ONE (16:14)
[2019-02-07] MEDS ORDERED: Acetaminophen 325 MG Tab PO ONE (16:15)
--- NOTE | 2019-02-07 16:17 | CR ---
Indication: Pain. Shortness of breath. Dizziness. Technique: A single AP portable view of the chest was obtained. Comparison: May 21, 2017. Findings: The heart is normal in size. The lungs are clear. No infiltrate, pleural effusion, or pneumothorax is identified. Impression: No acute cardiopulmonary process Dictated by Adalgisa Pires MD @ Feb 07 2019 4:14PM Signed by Dr. Adalgisa Pires @ Feb 07 2019 4:15PM
[2019-02-07 16:27] LABS: BLOOD UREA NITROGEN,BUN 9 mg/dL (7.0-18.0); CARBON DIOXIDE,CO2 22.9 mmol/L (21.0-32.0); CHLORIDE,CL 105 mmol/L (98-107); GLUCOSE RANDOM 95 mg/dL (74-106); POTASSIUM,K 3.9 mmol/L (3.5-5.1); SODIUM,NA 139 mmol/L (136-145)
[2019-02-07 16:36] VITALS: BP 117/74; PULSE 106
== END 2019-02-07 17:31 | disposition home or self-care (01) ==
LOC: MW.ED 15:43
DX: R07.9 Chest pain, unspecified (principal); G43.909 Migraine, unspecified, not intractable, without status migrainosus; R10.2 Pelvic and perineal pain; I10 Essential (primary) hypertension; F41.9 Anxiety disorder, unspecified; F32.9 Major depressive disorder, single episode, unspecified; E66.9 Obesity, unspecified; Z68.41 Body mass index [BMI] 40.0-44.9, adult; Z79.899 Other long term (current) drug therapy; Z88.3 Allergy status to other anti-infective agents; Z88.5 Allergy status to narcotic agent; Z88.8 Allergy status to other drugs, medicaments and biological substances; Z91.040 Latex allergy status; Z91.048 Other nonmedicinal substance allergy status; Z88.6 Allergy status to analgesic agent
CPT/HCPCS: 36415; 71045; 80053; 84484; 85025; 85379; 93005; 96360; 99285; A9270; J7040; 99283

== ENCOUNTER 2019-04-21 16:35 | Emergency (ER) | payer MEDICAID ==
[2019-04-21 17:00] VITALS: PULSE 82
[2019-04-21] MEDS ORDERED: Ketorolac 30 MG/ML SDV IVPUSH ONE (17:28)
--- NOTE | 2019-04-21 17:39 | CT ---
INDICATION: Syncope TECHNIQUE: CT head without contrast. COMPARISON: 12/24/2008 FINDINGS: The ventricles and sulci are within normal limits. There is no mass effect or midline shift. There is no loss of coronado-white differentiation. There is no evidence of an acute intracranial hemorrhage. No acute calvarial fracture is seen. There is mild focal anterior left frontal scalp swelling. The visualized paranasal sinuses are clear. There is partial opacification of a few left mastoid tip air cells. The visualized orbits are within normal limits. IMPRESSION: No evidence of an acute intracranial hemorrhage, mass effect or loss of coronado-white differentiation. Dictated by Nam Mccullough MD @ 04/21/2019 5:36:42 PM Please note that all CT scans at this facility use dose modulation, iterative reconstruction, and/or weight-based dosing when appropriate to reduce radiation dose to as low as reasonably achievable. Dictated by: Nam Mccullough MD @ 04/21/2019 17:36:47 (Electronically Signed)
--- NOTE | 2019-04-21 17:50 | CT ---
INDICATION: Syncope TECHNIQUE: CT cervical spine without contrast. COMPARISON: None available FINDINGS: There is reversal of the cervical lordosis centered at C5-6. The craniocervical and atlantoaxial alignments are near anatomical. There is no evidence of an acute cervical spine fracture. There is no significant precervical soft tissue swelling. IMPRESSION: No evidence of an acute cervical spine fracture. Dictated by Nam Mccullough MD @ 04/21/2019 5:43:57 PM Please note that all CT scans at this facility use dose modulation, iterative reconstruction, and/or weight-based dosing when appropriate to reduce radiation dose to as low as reasonably achievable. Dictated by: Nam Mccullough MD @ 04/21/2019 17:48:41 (Electronically Signed)
--- NOTE | 2019-04-21 18:34 | EDM.PDOC ---
ED [facility] GENERAL MEDICAL PROBLEM - General Chief Complaint: Syncope Stated Complaint: PASSED OUT Time Seen by Provider: 04/21/19 16:40 Source of Information: Reports: Patient, EMS History Limitations: Reports: No Limitations - History of Present Illness INITIAL COMMENTS - FREE TEXT/NARRATIVE: Is a 33-year-old female with a past medical history of syncopal episodes and intermittent tachycardia. Patient presents today after syncopal episode. Patient states she was getting up from bed walk couple steps when she suddenly felt lightheaded and passed out. Patient states she had the head on the floor and awoke immediately with a headache. Patient states her head hurts where she struck the front of her forehead. Patient reports associated neck pain and back pain in the low back area. Patient denies any chest pain before or after the event and denies any shortness of breath. Patient reports episodes are similar to prior syncope. Patient takes nadolol and follows up with cardiology , her last visit was 2 weeks ago without any major changes. In addition to that documented in the HPI above, the additional ROS was obtained : Constitutional: Denies fevers or chills Eyes: Denies vision changes ENMT: Denies sore throat CV: Denies chest pain Resp: Denies SOB GI: Denies vomiting or diarrhea : Denies painful urination MSK: Denies recent trauma Skin: Denies new rashes Neuro: Denies new numbness or tingling or weakness Endocrine: Denies unexpected weight loss Heme: Denies bleeding disorders I have reviewed the triage vital signs Const: Well nourished, well developed, appears stated age Head: Small area of swelling to the forehead without laceration. No palpable skull fracture. No signs of basilar skull fracture. Eyes: PERRL, no conjunctival injection HENT: Pain with flexion of her neck. NCAT, Neck supple without meningismus CV: RRR, Warm, well-perfused extremities RESP: CTAB, Unlabored respiratory effort GI: soft, non-tender, non-distended, no masses MSK: No gross deformities appreciated. No midline spinal tenderness. Skin: Warm, dry. No rashes Neuro: Alert, brusher tender II-XII grossly intact. Sensation and motor function of extremities grossly intact. Psych: Appropriate mood and affect Back Pain Score (Numeric/FACES): 7 - Related Data Allergies Allergy/AdvReac Type Severity Reaction Status Date / Time latex Allergy Severe Hives Verified 12/19/19 16:54 nickel [Nickel] Allergy Severe Rash Verified 04/21/19 16:54 oxycodone [Oxycodone] Allergy Severe Itching Verified 04/21/19 16:54 oxycodone HCl [From Percocet] Allergy Severe Itching Verified 04/21/19 16:54 propoxyphene napsylate Allergy Severe Itching Verified 04/21/19 16:54 [From Darvocet-N 100] terconazole [From Terazol 3] Allergy Severe Swelling Verified 04/21/19 16:54 adhesive tape Allergy Itching Verified 04/21/19 16:54 glatiramer acetate Allergy Hives Verified 04/21/19 16:54 [From Copaxone] morphine Allergy Itching Verified 04/21/19 16:54 sumatriptan [From Imitrex] Allergy Itching Verified 04/21/19 16:54 tioconazole Allergy Itching Verified 04/21/19 16:54 [From Monistat 1 (tioconazole)] Home Meds: Home Meds Venlafaxine [Effexor XR] 150 mg PO DAILY 06/28/18 [History] traZODone HCl [Trazodone HCl] 100 mg PO BEDTIME 02/05/19 [History] Past Medical History HEENT History: Reports: Other (See Below) Other HEENT History: glasses Cardiovascular History: Reports: Arrhythmia, Hypertension Other Cardiovascular History: sinus tachycardia Respiratory History: Reports: Asthma, Other (See Below) Other Respiratory History: sports induced asthma Gastrointestinal History: Reports: Hiatal Hernia Genitourinary History: Reports: None HOME PARAPROFESSIONAL History: Reports: 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, Other HOME PARAPROFESSIONAL History: - 3 Musculoskeletal History: Reports: Arthritis Other Musculoskeletal History: hx: fractre Rt ankle 'hairline', Multiple Sclerosis-is stable, Low back pain Neurological History: Reports: Migraines, MS Other Neuro History: Multiple Sclerosis - 2006, some numbness in right arm, h/o memory disturbance, Psychiatric History: Reports: Anxiety, Depression, PTSD Endocrine/Metabolic History: Reports: Obesity/BMI 30+ Hematologic History: Reports: None Immunologic History: Reports: None Oncologic (Cancer) History: Reports: None Dermatologic History: Reports: None - Infectious Disease History Infectious Disease History: Reports: C-Difficile - Past Surgical History Head Surgeries/Procedures: Reports: None HEENT Surgical History: Reports: Adenoidectomy, Oral Surgery, Tonsillectomy Cardiovascular Surgical History: Reports: Other (See Below) Other Cardiovascular Surgeries/Procedures: heart monitor implanted on left chest ; chest reconstruction Respiratory Surgical History: Reports: None GI Surgical History: Reports: Appendectomy, Cholecystectomy Other GI Surgeries/Procedures: Lap Cholecystectomy Female Surgical History: Reports: Hysterectomy, Tubal Ligation, Other (See Below) Other Female Surgeries/Procedures: bladder lift x2, TVT 2014 Endocrine Surgical History: Reports: None Neurological Surgical History: Reports: None Musculoskeletal Surgical History: Reports: Other (See Below) Other Musculoskeletal Surgeries/Procedures:: wrist surgery-ollie, chest reconstruction due to deformity, rt radial tunnel release 2 months ago Oncologic Surgical History: Reports: None Dermatological Surgical History: Reports: None - History Comment History Comment: etoh "2x a year" Social & Family History - Family History Family Medical History: Noncontributory HEENT: Reports: None Cardiac: Reports: None Respiratory: Reports: None GI: Reports: None : Reports: None OBGYN: Reports: None Musculoskeletal: Reports: Back pain, Chronic Neurological: Reports: None Psychiatric: Reports: Anxiety, Depression Endocrine/Metabolic: Reports: None Hematologic: Reports: None Immunologic: Reports: None Dermatologic: Reports: Eczema Oncologic: Reports: Breast, Prostate, Skin - Tobacco Use Smoking Status *Q: Never Smoker Second Hand Smoke Exposure: No - Caffeine Use Caffeine Use: Reports: Coffee - Recreational Drug Use Recreational Drug Use: No ED ROS GENERAL - Review of Systems Review Of Systems: See Below ED EXAM, GENERAL - Physical Exam Exam: See Below Course - Vital Signs Last Recorded V/S: Last Vital Signs Temp 36.3 C 04/21/19 16:54 Pulse 82 04/21/19 16:54 Resp 16 04/21/19 16:54 BP 116/80 04/21/19 16:54 Pulse Ox 98 04/21/19 16:54 - Orders/Labs/Meds Orders: Active Orders 24 hr Category Date Time Status EKG Documentation Completion [RC] STAT Care 04/21/19 16:49 Active HCG QUALITATIVE,URINE [URCHEM] Stat Lab 04/21/19 16:49 Ordered UA RFX SYLVIE AND CULT IF INDIC [URIN] Stat Lab 04/21/19 16:49 Ordered Labs: Laboratory Tests 04/21/19 04/21/19 Range/Units 18:10 18:10 WBC 10.80 (4.0-11.0) K/uL RBC 4.61 (4.30-5.90) M/uL Hgb 13.9 (12.0-16.0) g/dL Hct 42.0 (36.0-46.0) % MCV 91.1 (80.0-98.0) fL MCH 30.2 (27.0-32.0) pg MCHC 33.1 (31.0-37.0) g/dL RDW Std Deviation 43.4 (28.0-62.0) fl RDW Coeff of Rustam 13 (11.0-15.0) % Plt Count 280 (150-400) K/uL MPV 9.20 (7.40-12.00) fL Neut % (Auto) 76.1 (48.0-80.0) % Lymph % (Auto) 18.1 (16.0-40.0) % [place] % (Auto) 4.7 (0.0-15.0) % Eos % (Auto) 0.6 (0.0-7.0) % Baso % (Auto) 0.5 (0.0-1.5) % Neut # (Auto) 8.2 H (1.4-5.7) K/uL Lymph # (Auto) 2.0 (0.6-2.4) K/uL [place] # (Auto) 0.5 (0.0-0.8) K/uL Eos # (Auto) 0.1 (0.0-0.7) K/uL Baso # (Auto) 0.1 (0.0-0.1) K/uL Nucleated RBC % 0.0 /100WBC Nucleated RBCs # 0 K/uL Sodium 136 (136-145) mmol/L Potassium 4.4 (3.5-5.1) mmol/L Chloride 102 (98-107) mmol/L Carbon Dioxide 26.7 (21.0-32.0) mmol/L BUN 10 (7.0-18.0) mg/dL Creatinine 0.8 (0.6-1.0) mg/dL Est Cr Clr Drug Dosing 100.90 mL/min Estimated GFR (MDRD) > 60.0 ml/min Glucose 90 (74-106) mg/dL Calcium 9.0 (8.5-10.1) mg/dL Total Bilirubin 0.5 (0.2-1.0) mg/dL AST 14 L (15-37) IU/L ALT 17 (14-63) IU/L Alkaline Phosphatase 57 (46-116) U/L Total Protein 7.4 (6.4-8.2) g/dL Albumin 3.9 (3.4-5.0) g/dL Globulin 3.5 (2.6-4.0) g/dL Albumin/Globulin Ratio 1.1 (0.9-1.6) Meds: Medications Discontinued Medications Generic Name Dose Route Start Last Admin Trade Name Freq PRN Reason Stop Dose Admin Ketorolac Tromethamine 30 mg 04/21/19 17:28 04/21/19 17:40 Toradol IVPUSH 04/21/19 17:29 30 mg ONETIME ONE Administration Departure - Departure Time of Disposition: 18:47 Disposition: Home, Self-Care 01 Clinical Impression: Syncope Instructions: Syncope Referrals: PCP,None [Primary Care Provider] - Forms: ED Department Discharge Sepsis Event Note - Evaluation Sepsis Screening Result: No Definite Risk - Focused Exam Vital Signs: Vital Signs Temp Pulse Resp BP Pulse Ox 04/21/19 16:54 36.3 C 82 16 116/80 98 Date Exam was Performed: 04/21/19 Time Exam was Performed: 18:47 - My Orders Last 24 Hours: My Active Orders 04/21/19 16:49 EKG Documentation Completion [RC] STAT HCG QUALITATIVE,URINE [URCHEM] Stat UA RFX SYLVIE AND CULT IF INDIC [URIN] Stat - Assessment/Plan Last 24 Hours: My Active Orders 04/21/19 16:49 EKG Documentation Completion [RC] STAT HCG QUALITATIVE,URINE [URCHEM] Stat UA RFX SYLVIE AND CULT IF INDIC [URIN] Stat Assessment:: Patient is 33-year-old female presenting after syncopal episode. Patient has a history of similar syncopal episodes. Patient EKG in the field and on arrival to the emergency department are within normal limits. No changes from February visit. Patient has normal vital signs. CT brain and C-spine completed without evidence of fracture or acute intracranial abnormality. Patient has had a hysterectomy therefore ectopic is not considered in this patient. No abdominal pain either. Laboratory studies do not demonstrate electrolyte abnormality or evidence of significant anemia. Given patient prior history of syncope and cardiology follow-up, this patient is a candidate for outpatient follow-up and monitoring. Return precautions given.
[2019-04-21 18:37] LABS: BLOOD UREA NITROGEN,BUN 10 mg/dL (7.0-18.0); CARBON DIOXIDE,CO2 26.7 mmol/L (21.0-32.0); CHLORIDE,CL 102 mmol/L (98-107); GLUCOSE RANDOM 90 mg/dL (74-106); POTASSIUM,K 4.4 mmol/L (3.5-5.1); SODIUM,NA 136 mmol/L (136-145)
[2019-04-21] MEDS ORDERED: Acetaminophen 325 MG Tab PO ONE (18:50)
[2019-04-22 04:48] VITALS: BP 116/73
== END 2019-04-21 19:06 | disposition home or self-care (01) ==
LOC: MW.ED 16:35
DX: R55 Syncope and collapse (principal); I10 Essential (primary) hypertension; E66.9 Obesity, unspecified; Z88.8 Allergy status to other drugs, medicaments and biological substances; Z91.040 Latex allergy status; Z88.5 Allergy status to narcotic agent; Z91.048 Other nonmedicinal substance allergy status; Z79.899 Other long term (current) drug therapy; Z98.890 Other specified postprocedural states; Z90.49 Acquired absence of other specified parts of digestive tract; Z98.51 Tubal ligation status; Z68.34 Body mass index [BMI] 34.0-34.9, adult
CPT/HCPCS: 36415; 70450; 72125; 80053; 85025; 93005; 96374; 99285; A9270; J1885

== ENCOUNTER 2019-10-06 14:19 | Emergency (ER) | payer MEDICAID ==
[2019-10-06] MEDS ORDERED: Ketorolac 15 MG/ML SDV IM ONE (15:08)
[2019-10-06] MEDS ORDERED: Diazepam 2 MG Tab PO ONE (15:08)
[2019-10-06] MEDS ORDERED: Acetaminophen 325 MG Tab PO ONE (15:09)
--- NOTE | 2019-10-06 15:13 | EDM.PDOC ---
ED [facility] GENERAL MEDICAL PROBLEM - General Chief Complaint: Back Pain or Injury Stated Complaint: LOWER BACK AND TAILBONE PAIN Time Seen by Provider: 10/06/19 14:24 - History of Present Illness INITIAL COMMENTS - FREE TEXT/NARRATIVE: HISTORY AND PHYSICAL: History of present illness: This 33-year-old female presents to the emergency department complaining of low back pain. She has had gradual worsening of low back pain since driving to [place] about 1 week ago. Her low back pain now is coming in severe spasms causing her to feel nauseated due to the severe level of pain. It is across the lower back especially in SI joint area that she points to. No urinary symptoms. She does have a history of frequent pyelonephritis and UTIs. Denies any hematuria, frequency or dysuria. No new sexual contacts. No pelvic or abdominal pain. No other associated signs or symptoms. No other modifying, aggravating or alleviating factors. Review of systems: A 10-point review of systems, other than pertinent positives and negatives as stated per HPI, is otherwise negative. Past medical history: As per history of present illness and as reviewed below otherwise noncontributory. Surgical history: As per history of present illness and as reviewed below otherwise noncontributory. Social history: No reported history of drug or alcohol abuse. Family history: As per history of present illness and as reviewed below otherwise noncontributory. Physical exam: VITAL SIGNS: Reviewed. GENERAL: Appears to be in acute pain and very uncomfortable HEAD: No signs of head trauma. EYES: Pupils are equal. Extraocular motions intact. EARS: Hearing grossly intact. MOUTH: Oropharynx is normal. NECK: No adenopathy, no JVD. CHEST: Chest with clear breath sounds bilaterally. No wheezes, rales, or rhonchi. CARDIAC: Regular rate and rhythm. Normal S1 and S2, without murmurs, gallops, or rubs. VASCULAR: Peripheral pulses normal and equal in all extremities. ABDOMEN: Soft, without detectable tenderness. No sign of distention. No rebound or guarding, and no masses palpated. MUSCULOSKELETAL: Good range of motion of all major joints. Extremities without clubbing, cyanosis or edema. NEUROLOGIC EXAM: Alert and oriented x 3. No focal sensory or motor deficits. Speech normal. Follows commands. PSYCHIATRIC: Mood normal. SKIN: No rash or lesions. Back exam: No midline back tenderness. No step-offs or deformity. No pain to percussion. Exquisite pain over bilateral SI joints. In the sacroiliac region there is a significant amount of spasm. Especially in the paraspinous muscles Initial Differential Diagnosis & Plan: Cauda equina syndrome, aortic dissection, UTI, pyelonephritis, epidural abscess , aortic dissection. Equal bilateral dorsalis pedis pulses, equal radial pulses, no pulsatile masses , no pain with percussion. No saddle anesthesia. No overflow incontinence. The patient is able to walk and stand up on her tippy toes and heels. UA to rule out infection. Valium for muscle spasms and back pain. Toradol injection. Tylenol oral. Definitive disposition and diagnosis as appropriate pending reevaluation and review of above. back Pain Score (Numeric/FACES): 8 - Related Data Allergies Allergy/AdvReac Type Severity Reaction Status Date / Time latex Allergy Severe Hives Verified 04/21/19 16:54 nickel [Nickel] Allergy Severe Rash Verified 04/21/19 16:54 oxycodone [Oxycodone] Allergy Severe Itching Verified 04/21/19 16:54 oxycodone HCl [From Percocet] Allergy Severe Itching Verified 04/21/19 16:54 propoxyphene napsylate Allergy Severe Itching Verified 04/21/19 16:54 [From Darvocet-N 100] terconazole [From Terazol 3] Allergy Severe Swelling Verified 04/21/19 16:54 adhesive tape Allergy Itching Verified 04/21/19 16:54 glatiramer acetate Allergy Hives Verified 04/21/19 16:54 [From Copaxone] morphine Allergy Itching Verified 04/21/19 16:54 sumatriptan [From Imitrex] Allergy Itching Verified 04/21/19 16:54 tioconazole Allergy Itching Verified 04/21/19 16:54 [From Monistat 1 (tioconazole)] Home Meds: Home Meds Venlafaxine [Effexor XR] 150 mg PO DAILY 06/28/18 [History] traZODone HCl [Trazodone HCl] 100 mg PO BEDTIME 02/05/19 [History] Acetaminophen [Tylenol Extra Strength] 1,000 mg PO Q6HR PRN #60 tablet 06/04/20 [Rx] Diclofenac Sodium 100 gm TP TID 14 Days #100 gel..gram. 10/06/19 [Rx] Sulindac [Clinoril] 200 mg PO BIDMEALS #60 tab 10/06/19 [Rx] methocarbamoL [Methocarbamol] 750 mg PO QID 14 Days #60 tablet 10/06/19 [Rx] Past Medical History HEENT History: Reports: Other (See Below) Other HEENT History: glasses Cardiovascular History: Reports: Arrhythmia, Hypertension Other Cardiovascular History: sinus tachycardia Respiratory History: Reports: Asthma, Other (See Below) Other Respiratory History: sports induced asthma Gastrointestinal History: Reports: Hiatal Hernia Genitourinary History: Reports: None BEHAVIORAL MODIFICATION ASSISTANT History: Reports: 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, Other BEHAVIORAL MODIFICATION ASSISTANT History: - 3 Musculoskeletal History: Reports: Arthritis Other Musculoskeletal History: hx: fractre Rt ankle 'hairline', Multiple Sclerosis-is stable, Low back pain Neurological History: Reports: Migraines, MS Other Neuro History: Multiple Sclerosis - 2005, some numbness in right arm, h/o memory disturbance, Psychiatric History: Reports: Anxiety, Depression, PTSD Endocrine/Metabolic History: Reports: Obesity/BMI 30+ Hematologic History: Reports: None Immunologic History: Reports: None Oncologic (Cancer) History: Reports: None Dermatologic History: Reports: None - Infectious Disease History Infectious Disease History: Reports: C-Difficile - Past Surgical History Head Surgeries/Procedures: Reports: None HEENT Surgical History: Reports: Adenoidectomy, Oral Surgery, Tonsillectomy Cardiovascular Surgical History: Reports: Other (See Below) Other Cardiovascular Surgeries/Procedures: chest reconstruction Respiratory Surgical History: Reports: None GI Surgical History: Reports: Appendectomy, Cholecystectomy Other GI Surgeries/Procedures: Lap Cholecystectomy Female Surgical History: Reports: Hysterectomy, Tubal Ligation, Other (See Below) Other Female Surgeries/Procedures: bladder lift x2, TVT 2015 Endocrine Surgical History: Reports: None Neurological Surgical History: Reports: None Musculoskeletal Surgical History: Reports: Other (See Below) Other Musculoskeletal Surgeries/Procedures:: wrist surgery-ollie, chest reconstruction due to deformity, rt radial tunnel release 2 months ago Oncologic Surgical History: Reports: None Dermatological Surgical History: Reports: None - History Comment History Comment: etoh "2x a year" Social & Family History - Family History Family Medical History: Noncontributory HEENT: Reports: None Cardiac: Reports: None Respiratory: Reports: None GI: Reports: None : Reports: None OBGYN: Reports: None Musculoskeletal: Reports: Back pain, Chronic Neurological: Reports: None Psychiatric: Reports: Anxiety, Depression Endocrine/Metabolic: Reports: None Hematologic: Reports: None Immunologic: Reports: None Dermatologic: Reports: Eczema Oncologic: Reports: Breast, Prostate, Skin - Tobacco Use Smoking Status *Q: Never Smoker - Caffeine Use Caffeine Use: Reports: Coffee - Recreational Drug Use Recreational Drug Use: No ED ROS GENERAL - Review of Systems Review Of Systems: Unable To Obtain (noted) Reason Not Obtained: noted ED EXAM,LOWER BACK PAIN/INJURY - Physical Exam Exam: Not Obtained (noted) ED LACERATION/WOUND PROCEDURES - Additional/Other Procedure(s) Other (Free Text) Procedure(s): Procedure Note: Trigger point Injection BAR Consent Aseptic technique Indication for block pain relief Patient was placed prone Posterior iliac crest was palpated, a kanwal was made 7 cm from midline. Plan was to infiltrate 3cm to each side of this in order to catch the nerves as they pass over the iliac crest, just under the thoracolumbar fascia -Ultrasound guidance used to help localize the nerve. The linear probe was placed over the posterior iliac crest and moved up and down to visualize the gluteus anjana disappearing and gluteus medius seen below it. The three nerve branches (medial, intermediate, lateral) were sought beneath the thoracolumbar fascia and US used to block them. 22 gauge lumbar puncture needle used and passed in a fan-like pattern to capture branches of the nerves 20 mL of diluted 0.5% bupivacaine was injected. A total of 10 mL of 0.5% bupivacaine was used diluted in to 2 syringes for a total of 20 mL of volume. Diluted with normal saline. Complications: None Course - Vital Signs Last Recorded V/S: Last Vital Signs Temp 96.1 F L 10/06/19 14:39 Pulse 87 10/06/19 14:39 Resp 16 10/06/19 14:39 BP 119/75 10/06/19 14:39 Pulse Ox 98 10/06/19 14:39 - Orders/Labs/Meds Labs: Laboratory Tests 10/06/19 Range/Units 15:14 Urine Color YELLOW Urine Appearance CLEAR Urine pH 5.5 (5.0-8.0) Ur Specific [place] >= 1.030 (1.001-1.035) Urine Protein NEGATIVE (NEGATIVE) mg/dL Urine Glucose (UA) NEGATIVE (NEGATIVE) mg/dL Urine Ketones NEGATIVE (NEGATIVE) mg/dL Urine Occult Blood SMALL H (NEGATIVE) Urine Nitrite NEGATIVE (NEGATIVE) Urine Bilirubin NEGATIVE (NEGATIVE) Urine Urobilinogen 0.2 (<2.0) EU/dL Ur Leukocyte Esterase NEGATIVE (NEGATIVE) Urine RBC 0-2 (0-2/HPF) Urine WBC 0-2 (0-5/HPF) Ur Epithelial Cells RARE (NONE-FEW) Urine Bacteria NOT SEEN (NEGATIVE) Meds: Medications Discontinued Medications Generic Name Dose Route Start Last Admin Trade Name Harpreetq PRN Reason Stop Dose Admin Acetaminophen 975 mg 10/06/19 15:09 10/06/19 15:21 Tylenol PO 10/06/19 15:10 975 mg NOW ONE Administration Bupivacaine HCl Confirm 10/06/19 16:35 Sensorcaine-Mpf 0.5% Administered 10/06/19 16:36 Dose 10 ml .ROUTE .STK-MED ONE Diazepam 10 mg 10/06/19 15:08 10/06/19 15:21 Valium PO 10/06/19 15:09 10 mg ONETIME ONE Administration Sodium Chloride Confirm 10/06/19 15:55 Normal Saline Administered 10/06/19 15:56 Dose 40 mls @ as directed .ROUTE .STK-MED ONE Ketorolac Tromethamine 15 mg 10/06/19 15:08 10/06/19 15:20 Toradol IM 10/06/19 15:09 15 mg ONETIME ONE Administration - Re-Assessments/Exams Free Text/Narrative Re-Assessment/Exam: 10/06/19 16:58 Feeling slightly better. No evidence of urinary tract infection. Will send home with Robaxin, anti-inflammatory, and topical diclofenac My diagnostic impression: 1. Acute low back pain Departure - Departure Time of Disposition: 16:59 Disposition: Home, Self-Care 01 Clinical Impression: Low back pain - Discharge Information *PRESCRIPTION DRUG MONITORING PROGRAM REVIEWED*: Not Applicable *COPY OF PRESCRIPTION DRUG MONITORING REPORT IN PATIENT VINCENT: Not Applicable Instructions: Acute Back Pain, Adult, Trigger Point Injection Referrals: Nidhi Garrison MD [Primary Care Provider] - Forms: ED Department Discharge Additional Instructions: The following information is given to patients seen in the emergency department who are being discharged to home. This information is to outline your options for follow-up care. We provide all patients seen in our emergency department with a follow-up referral. The need for follow-up, as well as the timing and circumstances, are variable depending upon the specifics of your emergency department visit. If you don't have a primary care physician on staff, we will provide you with a referral. We always advise you to contact your personal physician following an emergency department visit to inform them of the circumstance of the visit and for follow-up with them and/or the need for any referrals to a consulting specialist. The emergency department will also refer you to a specialist when appropriate. This referral assures that you have the opportunity for follow-up care with a specialist. All of these measure are taken in an effort to provide you with optimal care, which includes your follow-up. Thank you for coming to the [facility] urgency department for your care today. It was Dr. Garcia's pleasure to take care of you. You had a trigger point injection today to help with your pain. Please take the medications as prescribed and return if you have uncontrolled pain, fever or any other concerns. Under all circumstances we always encourage you to contact your private physician who remains a resource for coordinating your care. When calling for follow-up care, please make the office aware that this follow-up is from your recent emergency room visit. If for any reason you are refused follow-up, please contact the [facility] Emergency Department at and asked to speak to the emergency department charge nurse. Sepsis Event Note - Evaluation Sepsis Screening Result: No Definite Risk - Focused Exam Vital Signs: Vital Signs Temp Pulse Resp BP Pulse Ox 10/06/19 14:39 96.1 F L 87 16 119/75 98 Date Exam was Performed: 10/06/19 Time Exam was Performed: 16:53
[2019-10-06] MEDS ORDERED: Sodium Chloride 0.9% 40 ML ONE (15:55)
[2019-10-06] MEDS ORDERED: Bupivacaine 0.5% 10 ML SDV ONE (16:35)
[2019-10-06] MEDS ORDERED: Sodium Chloride 0.9% 20 ML SDV FLUSH ONE (16:53)
[2019-10-06] MEDS ORDERED: Bupivacaine 0.5% 10 ML SDV INJECT ONE (16:54)
[2019-10-06 17:30] VITALS: BP 108/75; PULSE 77
== END 2019-10-06 17:29 | disposition home or self-care (01) ==
LOC: MW.ED 14:19
DX: M54.5 Low back pain (principal); I10 Essential (primary) hypertension; J45.909 Unspecified asthma, uncomplicated; F41.9 Anxiety disorder, unspecified; F32.9 Major depressive disorder, single episode, unspecified; G35 Multiple sclerosis; E66.9 Obesity, unspecified; Z68.36 Body mass index [BMI] 36.0-36.9, adult; Z91.040 Latex allergy status; Z91.09 Other allergy status, other than to drugs and biological substances; Z88.5 Allergy status to narcotic agent; Z91.048 Other nonmedicinal substance allergy status; Z88.8 Allergy status to other drugs, medicaments and biological substances
CPT/HCPCS: 20552; 81001; 96372; 99283; A9270; J1885; J3490; 20550; 99282

== ENCOUNTER 2019-11-26 14:49 | Emergency (ER) | payer MEDICAID ==
[2019-11-26 15:16] VITALS: BP 115/67; PULSE 88
--- NOTE | 2019-11-26 15:50 | EDM.PDOC ---
ED HPI GENERAL MEDICAL PROBLEM - General Chief Complaint: Back Pain or Injury Stated Complaint: LOWER BACK PAIN,NUMBNESS IN LEGS Time Seen by Provider: 11/26/19 15:12 Source of Information: Reports: Patient History Limitations: Reports: No Limitations - History of Present Illness INITIAL COMMENTS - FREE TEXT/NARRATIVE: 34-year-old female with history of chronic low back pain, presents with acute on chronic low back pain for 3 days. She has had back pain since September, Dr. Antony Agosto manages her back pain and has scheduled her for an outpatient MRI on . She is prescribed trazodone 200 mg at night, [place] every 4 hours as needed for back pain. She went to physical therapy on and started noticing worsening back pain, associated with intermittent numbness and tingling down bilateral lower extremities. She denies urinary or fecal incontinence, fever, chills, IVDA, recent back surgery. She walked into the ER with no antalgic gait. ROS: A 10-point review of systems, other than pertinent positives and negatives as stated per HPI, is otherwise negative Past medical history: No additional pertinent history Past Surgical history: No additional pertinent history Social history: No additional pertinent history Family history: No additional pertinent history PHYSICAL EXAM General: AOx4, GCS = 15, sitting calmly in no distress HEENT: dry mucous membrane Neck: supple, no meningismus, no Kernig or Brudzinski Cardiac: S1S2 RRR Respiratory: CTAB, no crackles or rales, no wheezing Abdomen: Soft, nontender, no rebound or guarding, nondistended, no pulsatile mass. Back: ttp lumbar paraspinal muscle Musculoskeletal: NVI distally, no deformity Neuro: No focal deficits, CN 2 - 12 WNL. Bilateral Back Pain Score (Numeric/FACES): 10 - Related Data Allergies Allergy/AdvReac Type Severity Reaction Status Date / Time latex Allergy Severe Hives Verified 11/26/19 15:12 nickel [Nickel] Allergy Severe Rash Verified 11/26/19 15:12 oxycodone [Oxycodone] Allergy Severe Itching Verified 11/26/19 15:12 oxycodone HCl [From Percocet] Allergy Severe Itching Verified 11/26/19 15:12 propoxyphene napsylate Allergy Severe Itching Verified 11/26/19 15:12 [From Darvocet-N 100] terconazole [From Terazol 3] Allergy Severe Swelling Verified 11/26/19 15:12 adhesive tape Allergy Itching Verified 11/26/19 15:12 glatiramer acetate Allergy Hives Verified 11/26/19 15:12 [From Copaxone] morphine Allergy Itching Verified 11/26/19 15:12 sumatriptan [From Imitrex] Allergy Itching Verified 11/26/19 15:12 tioconazole Allergy Itching Verified 11/26/19 15:12 [From Monistat 1 (tioconazole)] Home Meds: Home Meds traZODone HCl [Trazodone HCl] 200 mg PO BEDTIME 02/05/19 [History] Cyclobenzaprine [Flexeril] 10 mg PO TID PRN #12 tab 11/26/19 [Rx] Hydrocodone/Acetaminophen [Hydrocodone-Acetamin 5-325 mg] 1 tab PO Q6H 11/26/19 [History] Ibuprofen 800 mg PO Q6H #15 tablet 11/26/19 [Rx] Past Medical History HEENT History: Reports: Other (See Below) Other HEENT History: glasses Cardiovascular History: Reports: Arrhythmia, Hypertension Other Cardiovascular History: sinus tachycardia Respiratory History: Reports: Asthma, Other (See Below) Other Respiratory History: sports induced asthma Gastrointestinal History: Reports: Hiatal Hernia Genitourinary History: Reports: None 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: 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, Other BUILDING AND CONSTRUCTION MANAGER History: - 3 Musculoskeletal History: Reports: Arthritis Other Musculoskeletal History: hx: fractre Rt ankle 'hairline', Multiple Sclerosis-is stable, Low back pain Neurological History: Reports: Migraines, MS Other Neuro History: Multiple Sclerosis - 2006, some numbness in right arm, h/o memory disturbance, Psychiatric History: Reports: Anxiety, Depression, PTSD Endocrine/Metabolic History: Reports: Obesity/BMI 30+ Hematologic History: Reports: None Immunologic History: Reports: None Oncologic (Cancer) History: Reports: None Dermatologic History: Reports: None - Infectious Disease History Infectious Disease History: Reports: None - Past Surgical History Head Surgeries/Procedures: Reports: None HEENT Surgical History: Reports: Adenoidectomy, Oral Surgery, Tonsillectomy Cardiovascular Surgical History: Reports: Other (See Below) Other Cardiovascular Surgeries/Procedures: chest reconstruction Respiratory Surgical History: Reports: None GI Surgical History: Reports: Appendectomy, Cholecystectomy Other GI Surgeries/Procedures: Lap Cholecystectomy Female Surgical History: Reports: Hysterectomy, Tubal Ligation, Other (See Below) Other Female Surgeries/Procedures: bladder lift x2, TVT 2014 Endocrine Surgical History: Reports: None Neurological Surgical History: Reports: None Musculoskeletal Surgical History: Reports: Other (See Below) Other Musculoskeletal Surgeries/Procedures:: wrist surgery-ollie, chest reconstruction due to deformity, rt radial tunnel release 2 months ago Oncologic Surgical History: Reports: None Dermatological Surgical History: Reports: None - History Comment History Comment: etoh "2x a year" Social & Family History - Family History Family Medical History: Noncontributory HEENT: Reports: None Cardiac: Reports: None Respiratory: Reports: None GI: Reports: None : Reports: None OBGYN: Reports: None Musculoskeletal: Reports: Back pain, Chronic Neurological: Reports: None Psychiatric: Reports: Anxiety, Depression Endocrine/Metabolic: Reports: None Hematologic: Reports: None Immunologic: Reports: None Dermatologic: Reports: Eczema Oncologic: Reports: Breast, Prostate, Skin - Tobacco Use Smoking Status *Q: Never Smoker - Caffeine Use Caffeine Use: Reports: Coffee ED ROS GENERAL - Review of Systems Review Of Systems: Comprehensive ROS is negative, except as noted in HPI. ED EXAM,LOWER BACK PAIN/INJURY - Physical Exam Exam: See Below (see dictation) Course - Vital Signs Last Recorded V/S: Last Vital Signs Temp 98.1 F 11/26/19 15:14 Pulse 88 11/26/19 15:14 Resp 19 11/26/19 15:14 BP 115/67 11/26/19 15:14 Pulse Ox 98 11/26/19 15:14 - Re-Assessments/Exams Free Text/Narrative Re-Assessment/Exam: 11/26/19 15:44 After IM toradol, she improved clinically and is currently stable for discharge. I performed a repeat exam and did not appreciate new abnormal findings. Patient exhibits normal vital signs and has a normal gait. I advised the patient to return to the ER for reevaluation if symptoms worsened, including fever, worsening pain, or any other worrisome symptoms. I instructed the patient to follow up with their PCP within 2-3 days. MEDICAL DECISION MAKING: I reviewed the patients past medical records, lab and radiographic findings. I discussed the case with the patient. My differential diagnosis included: Patient's back pain is suggestive of musculoskeletal strain. There are no complaints of urinary or fecal incontinence, focal numbness or weakness. The patient has a normal gait in the ER. There is no evidence of fever, IV drug use, recent back surgery, or immunocompromised state. I do not suspect caude equine syndrome or cord compression which would warrant further imaging. She has an MRI scheduled for ready. Departure - Departure Time of Disposition: 15:50 Disposition: Home, Self-Care 01 Condition: Good Clinical Impression: Low back pain, Chronic back pain - Discharge Information *PRESCRIPTION DRUG MONITORING PROGRAM REVIEWED*: Not Applicable *COPY OF PRESCRIPTION DRUG MONITORING REPORT IN PATIENT VINCENT: Not Applicable Prescriptions: Cyclobenzaprine [Flexeril] 10 mg PO TID PRN #12 tab PRN Reason: Pain Ibuprofen 800 mg PO Q6H #15 tablet Instructions: What You Need to Know About Chronic Back Pain, Acute Back Pain, Adult Referrals: Nidhi Garrison MD [Primary Care Provider] - 3 Days Sepsis Event Note (ED) - Evaluation Sepsis Screening Result: No Definite Risk - Focused Exam Vital Signs: Vital Signs Temp Pulse Resp BP Pulse Ox 11/26/19 15:14 98.1 F 88 19 115/67 98
[2019-11-26] MEDS ORDERED: Ketorolac 60 MG/2 ML SDV IM ONE (16:01)
== END 2019-11-26 16:32 | disposition home or self-care (01) ==
LOC: MW.ED 14:49
DX: M54.5 Low back pain (principal); G89.29 Other chronic pain; I10 Essential (primary) hypertension; E66.9 Obesity, unspecified; Z91.040 Latex allergy status; Z88.5 Allergy status to narcotic agent; Z88.8 Allergy status to other drugs, medicaments and biological substances; Z91.09 Other allergy status, other than to drugs and biological substances; Z79.899 Other long term (current) drug therapy; Z90.49 Acquired absence of other specified parts of digestive tract; Z98.51 Tubal ligation status
CPT/HCPCS: 96372; 99283; J1885

== ENCOUNTER 2020-02-06 14:24 | Emergency (ER) | payer MEDICAID, OTHER ==
--- NOTE | 2020-02-06 15:08 | EDM.PDOC ---
ED HPI GENERAL MEDICAL PROBLEM - General Chief Complaint: ENT Problem Stated Complaint: SINUS CONGESTION, COUGH Time Seen by Provider: 02/06/20 14:30 Source of Information: Reports: Patient History Limitations: Reports: No Limitations - History of Present Illness INITIAL COMMENTS - FREE TEXT/NARRATIVE: HISTORY AND PHYSICAL: History of present illness: Patient is a 34-year-old female who presents to the ED today with concern of nasal congestion, sore throat, and cough over the past 3 to 4 days. Patient states she does not have any known cold exposure. Patient states that she has had a decrease in appetite due to the mucus draining down the back of her throat from her nasal congestion. Patient states she has not taken anything [id number] for her symptoms. Patient states she has a history of multiple sclerosis, depression, and anxiety. Patient denies fever, chills, chest pain, shortness of breath, or cough. Denies headache, neck stiff ness, change in vision, syncope, or near syncope. Denies nausea, vomiting, abdominal pain, diarrhea, constipation, or dysuria. Has not noted any blood in urine or stool. Patient has been eating and drinking appropriately. Review of systems: As per history of present illness and below otherwise all systems reviewed and negative. Past medical history: As per history of present illness and as reviewed below otherwise n oncontributory. Surgical history: As per history of present illness and as reviewed below otherwise noncontributory. Social history: See social history for further information Family history: As per history of present illness and as reviewed below otherwise noncontributory. Physical exam: General: Patient is alert, oriented, and in no acute distress. Patient sitting comfortably on exam table. HEENT: Bilateral nasal congestion. Otherwise, atraumatic, normocephalic, pupils equal and reactive bilaterally, negative for conjunctival pallor or scleral icterus, mucous membranes moist, TMs normal bilaterally, throat clear, neck supple, nontender, trachea midline. No drooling or trismus noted. No meningeal signs. No hot potato voice noted. Lung: Patient speaking clearly without breathlessness, no wheezing or stridor, no accessory muscle use or respiratory distress. Auscultation deferred due to current COV-ID 19 outbreak. Heart: Auscultation deferred due to current COV-ID 19 outbreak. Abdomen: Soft, nondistended, nontender. Negative for masses or hepatosplenomegaly. Negative for costovertebral tenderness. Pelvis: Stable nontender. Genitourinary: Deferred. Rectal: Deferred. Skin: Intact, warm, dry. No lesions or rashes noted. Extremities: Atraumatic, negative for cords or calf pain. Neurovascular unremarkable. Neuro: Awake, alert, oriented. Cranial nerves II through XII unremarkable. Cerebellum unremarkable. Motor and sensory unremarkable throughout. Exam nonfocal. Notes: Signs and symptoms that would prompt return to the ED thoroughly discussed with patient. Discussed importance for follow-up with primary care provider. Voices understanding and is agreeable to plan of care. Denies any further questions or concerns at this time. Diagnostics: Strep, COVID19 Therapeutics: None Prescription: None Impression: Upper respiratory infection Plan: 1. You can use OTC Flonase and Mucinex as directed and as discussed for symptomatic management. 2. Alternate Ibuprofen and Tylenol as directed for pain and discomfort. 3. Follow up with your primary care provider as discussed. 4. Return to the ED as needed and as discussed. Definitive disposition and diagnosis as appropriate pending reevaluation and review of above. sinus Pain Score (Numeric/FACES): 4 - Related Data Allergies Allergy/AdvReac Type Severity Reaction Status Date / Time latex Allergy Severe Hives Verified 02/06/20 14:42 nickel [Nickel] Allergy Severe Rash Verified 02/06/20 14:42 oxycodone [Oxycodone] Allergy Severe Itching Verified 02/06/20 14:42 oxycodone HCl [From Percocet] Allergy Severe Itching Verified 02/06/20 14:42 propoxyphene napsylate Allergy Severe Itching Verified 02/06/20 14:42 [From Darvocet-N 100] terconazole [From Terazol 3] Allergy Severe Swelling Verified 02/06/20 14:42 adhesive tape Allergy Itching Verified 02/06/20 14:42 glatiramer acetate Allergy Hives Verified 02/06/20 14:42 [From Copaxone] morphine Allergy Itching Verified 02/06/20 14:42 sumatriptan [From Imitrex] Allergy Itching Verified 02/06/20 14:42 tioconazole Allergy Itching Verified 02/06/20 14:42 [From Monistat 1 (tioconazole)] Home Meds: Home Meds traZODone HCl [Trazodone HCl] 200 mg PO BEDTIME 02/05/19 [History] Zaleplon 10 mg PO DAILY 02/06/20 [History] Past Medical History HEENT History: Reports: Other (See Below) Other HEENT History: glasses Cardiovascular History: Reports: Arrhythmia, Hypertension Other Cardiovascular History: sinus tachycardia Respiratory History: Reports: Asthma, Other (See Below) Other Respiratory History: sports induced asthma Gastrointestinal History: Reports: Hiatal Hernia Genitourinary History: Reports: None 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: 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, 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 WICKER WORKER History: - 3 Musculoskeletal History: Reports: Arthritis Other Musculoskeletal History: hx: fractre Rt ankle 'hairline', Multiple Sclerosis-is stable, Low back pain Neurological History: Reports: Migraines, MS Other Neuro History: Multiple Sclerosis - 2005, some numbness in right arm, h/o memory disturbance, Psychiatric History: Reports: Anxiety, Depression, PTSD Endocrine/Metabolic History: Reports: Obesity/BMI 30+ Hematologic History: Reports: None Immunologic History: Reports: None Oncologic (Cancer) History: Reports: None Dermatologic History: Reports: None - Infectious Disease History Infectious Disease History: Reports: None - Past Surgical History Head Surgeries/Procedures: Reports: None HEENT Surgical History: Reports: Adenoidectomy, Oral Surgery, Tonsillectomy Cardiovascular Surgical History: Reports: Other (See Below) Other Cardiovascular Surgeries/Procedures: chest reconstruction Respiratory Surgical History: Reports: None GI Surgical History: Reports: Appendectomy, Cholecystectomy Other GI Surgeries/Procedures: Lap Cholecystectomy Female Surgical History: Reports: Hysterectomy, Tubal Ligation, Other (See Below) Other Female Surgeries/Procedures: bladder lift x2, TVT 2015 Endocrine Surgical History: Reports: None Neurological Surgical History: Reports: None Musculoskeletal Surgical History: Reports: Other (See Below) Other Musculoskeletal Surgeries/Procedures:: wrist surgery-ollie, chest reconstruction due to deformity, rt radial tunnel release 2 months ago Oncologic Surgical History: Reports: None Dermatological Surgical History: Reports: None - History Comment History Comment: etoh "2x a year" Social & Family History - Family History Family Medical History: Noncontributory HEENT: Reports: None Cardiac: Reports: None Respiratory: Reports: None GI: Reports: None : Reports: None OBGYN: Reports: None Musculoskeletal: Reports: Back pain, Chronic Neurological: Reports: None Psychiatric: Reports: Anxiety, Depression Endocrine/Metabolic: Reports: None Hematologic: Reports: None Immunologic: Reports: None Dermatologic: Reports: Eczema Oncologic: Reports: Breast, Prostate, Skin - Tobacco Use Smoking Status *Q: Never Smoker - Caffeine Use Caffeine Use: Reports: Coffee - Recreational Drug Use Recreational Drug Use: No ED ROS GENERAL - Review of Systems Review Of Systems: Comprehensive ROS is negative, except as noted in HPI. ED EXAM, GENERAL - Physical Exam Exam: See Below (see dictation) Course - Vital Signs Last Recorded V/S: Last Vital Signs Temp 97.9 F 02/06/20 14:39 Pulse 100 02/06/20 14:39 Resp 18 02/06/20 14:39 BP 110/81 02/06/20 14:39 Pulse Ox 98 02/06/20 14:39 - Orders/Labs/Meds Orders: Active Orders 24 hr Category Date Time Status CORONAVIRUS COVID-19 PCR PHL Stat Lab 02/06/20 14:56 Ordered STREP SCRN A RAPID W CULT CONF [RM] Stat Lab 02/06/20 15:26 Received Labs: Laboratory Tests 02/06/20 Range/Units 15:27 SARS CoV-2 RNA Rapid KENNY NEGATIVE (NEGATIVE) Departure - Departure Time of Disposition: 17:23 Disposition: Home, Self-Care 01 Clinical Impression: Upper respiratory infection Qualifiers: URI type: unspecified URI Qualified Code(s): J06.9 - Acute upper respiratory infection, unspecified - Discharge Information Referrals: Nidhi Garrison MD [Primary Care Provider] - Forms: ED Department Discharge Additional Instructions: The following information is given to patients seen in the emergency department who are being discharged to home. This information is to outline your options for follow-up care. We provide all patients seen in our emergency department with a follow-up referral. The need for follow-up, as well as the timing and circumstances, are variable depending upon the specifics of your emergency department visit. If you don't have a primary care physician on staff, we will provide you with a referral. We always advise you to contact your personal physician following an emergency department visit to inform them of the circumstance of the visit and for follow-up with them and/or the need for any referrals to a consulting specialist. The emergency department will also refer you to a specialist when appropriate. This referral assures that you have the opportunity for follow-up care with a specialist. All of these measure are taken in an effort to provide you with optimal care, which includes your follow-up. Under all circumstances we always encourage you to contact your private physician who remains a resource for coordinating your care. When calling for follow-up care, please make the office aware that this follow-up is from your recent emergency room visit. If for any reason you are refused follow-up, please contact the [facility] Emergency Department at and asked to speak to the emergency department charge nurse. [facility] [address] [place] [address] [facility] [address] [place] [id number] 1. You can use OTC Flonase and Mucinex as directed and as discussed for symptomatic management. 2. Alternate Ibuprofen and Tylenol as directed for pain and discomfort. 3. Follow up with your primary care provider as discussed. 4. Return to the ED as needed and as discussed. Sepsis Event Note (ED) - Evaluation Sepsis Screening Result: No Definite Risk - Focused Exam Vital Signs: Vital Signs Temp Pulse Resp BP Pulse Ox 02/06/20 14:39 97.9 F 100 18 110/81 98 - My Orders Last 24 Hours: My Active Orders 02/06/20 14:56 CORONAVIRUS COVID-19 PCR PHL Stat 02/06/20 15:26 STREP SCRN A RAPID W CULT CONF [RM] Stat - Assessment/Plan Last 24 Hours: My Active Orders 02/06/20 14:56 CORONAVIRUS COVID-19 PCR PHL Stat 02/06/20 15:26 STREP SCRN A RAPID W CULT CONF [RM] Stat
[2020-02-06 17:47] VITALS: BP 112/78; PULSE 92
== END 2020-02-06 17:31 | disposition home or self-care (01) ==
LOC: MW.ED 14:24
DX: J06.9 Acute upper respiratory infection, unspecified (principal); I10 Essential (primary) hypertension; J45.909 Unspecified asthma, uncomplicated; G35 Multiple sclerosis; F41.9 Anxiety disorder, unspecified; F32.9 Major depressive disorder, single episode, unspecified; E66.9 Obesity, unspecified; Z68.33 Body mass index [BMI] 33.0-33.9, adult; Z91.040 Latex allergy status; Z88.5 Allergy status to narcotic agent; Z88.6 Allergy status to analgesic agent; Z91.048 Other nonmedicinal substance allergy status; Z88.8 Allergy status to other drugs, medicaments and biological substances; Z88.1 Allergy status to other antibiotic agents; Z79.899 Other long term (current) drug therapy; Z20.828 Contact with and (suspected) exposure to other viral communicable diseases
CPT/HCPCS: 87081; 87880-QW; 99282; 99283; U0002

== ENCOUNTER 2020-12-09 15:20 | Emergency (ER) | payer MEDICAID ==
[2020-12-09] MEDS ORDERED: Sodium Chloride 0.9% 2.5 ML Syringe FLUSH PRN (16:09)
[2020-12-09] MEDS ORDERED: Sodium Chloride 0.9% 10 ML Syringe FLUSH PRN (16:09)
[2020-12-09] MEDS ORDERED: diphenhydrAMINE 50 MG/ML SDV IVPUSH ONE (16:09)
[2020-12-09] MEDS ORDERED: Ketorolac 15 MG/ML SDV IVPUSH ONE (16:09)
[2020-12-09] MEDS ORDERED: Metoclopramide 10 MG/2 ML SDV IVPUSH ONE (16:15)
--- NOTE | 2020-12-09 16:18 | EDM.PDOC ---
ED HPI GENERAL MEDICAL PROBLEM - General Chief Complaint: Headache Stated Complaint: MIGRAINE Time Seen by Provider: 12/09/20 15:37 - History of Present Illness INITIAL COMMENTS - FREE TEXT/NARRATIVE: History of present illness: [] This patient has a migraine. It started yesterday. Its severe today. She has had burning for the last 2 weeks. She has been having a headache for 3 months. She has not seen her neurologist in the last 2 weeks but plans to see her this week. The migraines are severe enough to be almost incapacitating but they are insidious onset and gradually get worse rather than the thunderclap onset. It is associated with photophobia phonophobia and nausea. Nothing makes it better. The patient has not had any recent imaging of her central nervous system but has had no trauma since the most recent imaging. The patient sees Dr. Petit who will be available this week according to the patient. The patient's injectable medicine to abort a migraine is no longer working. The patient tells me she is no longer on bupropion or vilazodone. Review of systems: As per history of present illness and below otherwise all systems reviewed and negative. Past medical history: As per history of present illness and as reviewed below otherwise noncontributory. Surgical history: As per history of present illness and as reviewed below otherwise noncontributory. Social history: No reported history of drug or alcohol abuse. Family history: As per history of present illness and as reviewed below otherwise noncontributory. Physical exam: Constitutional - well developed, well-nourished and in no acute distress HEENT - normocephalic, no evidence of trauma - external nose and mouth normal - no mass in neck and no JVD - mucosae moist EYES - full EOM, PERRL, no icterus - no evidence of inflammation, injection, or drainage Respiratory - no respiratory distress, equal bilateral expansion, lungs clear to auscultation and no abnormal lung sounds Cardiovascular - Regular Rhythm with S1 and S2 appreciated and no murmur, gallop or rub. GI - abdomen soft without distension or organomegaly - normal bowel sounds - no guard or rebound Musculoskeletal no gross deformity of long bones or joints - no tenderness, swelling or edema Neurologic -my customary brief neurologic exam is normal. Alert and oriented times four - CN II-XII grossly intact - motor sensory and coordination symmetrically normal Psychiatric - appropriate mood and affect with normal thought content Hematologic - No petechiae or purpura - mucosa appropriate color and sclera not pale - normal nail bed color and refill Integument - no rash or evidence of trauma - normal turgor Diagnostics: [] Therapeutics: [] Impression: [] Plan: [] Definitive disposition and diagnosis as appropriate pending reevaluation and review of above. headache Pain Score (Numeric/FACES): 10 - Related Data Allergies Allergy/AdvReac Type Severity Reaction Status Date / Time latex Allergy Severe Hives Verified 02/06/20 14:42 nickel [Nickel] Allergy Severe Rash Verified 02/06/20 14:42 oxycodone [Oxycodone] Allergy Severe Itching Verified 02/06/20 14:42 oxycodone HCl [From Percocet] Allergy Severe Itching Verified 02/06/20 14:42 propoxyphene napsylate Allergy Severe Itching Verified 02/06/20 14:42 [From Darvocet-N 100] terconazole [From Terazol 3] Allergy Severe Swelling Verified 02/06/20 14:42 adhesive tape Allergy Itching Verified 02/06/20 14:42 glatiramer acetate Allergy Hives Verified 02/06/20 14:42 [From Copaxone] morphine Allergy Itching Verified 02/06/20 14:42 sumatriptan [From Imitrex] Allergy Itching Verified 02/06/20 14:42 tioconazole Allergy Itching Verified 02/06/20 14:42 [From Monistat 1 (tioconazole)] Home Meds: Home Meds traZODone HCl [Trazodone HCl] 200 mg PO BEDTIME 02/05/19 [History] Zaleplon 10 mg PO DAILY 02/06/20 [History] Cholecalciferol (Vitamin D3) [Vitamin D3] 50,000 unit PO DAILY 12/09/20 [History] Fremanezumab-Vfrm [Ajovy Syringe] 225 mg SUBCUT ASDIRECTED 12/09/20 [History] Montelukast [Singulair] 10 mg PO DAILY 12/09/20 [History] Vilazodone HCl [Viibryd] 10 mg PO BEDTIME 12/09/20 [History] buPROPion HCL [Bupropion Xl] 300 mg PO DAILY 12/09/20 [History] Past Medical History HEENT History: Reports: Other (See Below) Other HEENT History: glasses Cardiovascular History: Reports: Arrhythmia, Hypertension Other Cardiovascular History: sinus tachycardia Respiratory History: Reports: Asthma, Other (See Below) Other Respiratory History: sports induced asthma Gastrointestinal History: Reports: Hiatal Hernia Genitourinary History: Reports: None 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, Other 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 WORKER History: - 3 Musculoskeletal History: Reports: Arthritis Other Musculoskeletal History: hx: fractre Rt ankle 'hairline', Multiple Sclerosis-is stable, Low back pain Neurological History: Reports: Migraines, MS Other Neuro History: Multiple Sclerosis - 2006, some numbness in right arm, h/o memory disturbance, Psychiatric History: Reports: Anxiety, Depression, PTSD Endocrine/Metabolic History: Reports: Obesity/BMI 30+ Hematologic History: Reports: None Immunologic History: Reports: None Oncologic (Cancer) History: Reports: None Dermatologic History: Reports: None - Infectious Disease History Infectious Disease History: Reports: Chicken Pox - Past Surgical History Head Surgeries/Procedures: Reports: None HEENT Surgical History: Reports: Adenoidectomy, Oral Surgery, Tonsillectomy Cardiovascular Surgical History: Reports: Other (See Below) Other Cardiovascular Surgeries/Procedures: chest reconstruction Respiratory Surgical History: Reports: None GI Surgical History: Reports: Appendectomy, Cholecystectomy Other GI Surgeries/Procedures: Lap Cholecystectomy Female Surgical History: Reports: Hysterectomy, Tubal Ligation, Other (See Below) Other Female Surgeries/Procedures: bladder lift x2, TVT 2015 Endocrine Surgical History: Reports: None Neurological Surgical History: Reports: None Musculoskeletal Surgical History: Reports: Other (See Below) Other Musculoskeletal Surgeries/Procedures:: wrist surgery-ollie, chest reconstruction due to deformity, rt radial tunnel release 2 months ago Oncologic Surgical History: Reports: None Dermatological Surgical History: Reports: None - History Comment History Comment: etoh "2x a year" Social & Family History - Family History Family Medical History: No Pertinent Family History HEENT: Reports: None Cardiac: Reports: None Respiratory: Reports: None GI: Reports: None : Reports: None OBGYN: Reports: None Musculoskeletal: Reports: Back pain, Chronic Neurological: Reports: None Psychiatric: Reports: Anxiety, Depression Endocrine/Metabolic: Reports: None Hematologic: Reports: None Immunologic: Reports: None Dermatologic: Reports: Eczema Oncologic: Reports: Breast, Prostate, Skin - Tobacco Use Tobacco Use Status *Q: Never Tobacco User - Caffeine Use Caffeine Use: Reports: Coffee - Recreational Drug Use Recreational Drug Use: No ED ROS GENERAL - Review of Systems Review Of Systems: Comprehensive ROS is negative, except as noted in HPI. ED EXAM, GENERAL - Physical Exam Exam: See Below Free Text/Narrative:: My physical exam is in the HPI Course - Vital Signs Text/Narrative:: 1720 hrs. the patient is markedly improved and wants to go home Last Recorded V/S: Last Vital Signs Temp 37.2 C 12/09/20 15:56 Pulse 79 12/09/20 15:56 Resp 16 12/09/20 15:56 BP 125/73 12/09/20 15:56 Pulse Ox 95 12/09/20 15:56 - Orders/Labs/Meds Orders: Active Orders 24 hr Category Date Time Status Sodium Chloride 0.9% [Saline Flush] Med 12/09/20 16:09 Active 10 ml FLUSH ASDIRECTED PRN Sodium Chloride 0.9% [Saline Flush] Med 12/09/20 16:09 Active 2.5 ml FLUSH ASDIRECTED PRN Saline Lock Insert [OM.PC] Stat Oth 12/09/20 16:09 Ordered Medication Orders Sodium Chloride (Sodium Chloride 0.9% 10 Ml Syringe) 10 ml FLUSH ASDIRECTED PRN PRN Reason: Keep Vein Open Last Admin: 12/09/20 16:48 Dose: 10 ml Documented by: LICHTIM Sodium Chloride (Sodium Chloride 0.9% 2.5 Ml Syringe) 2.5 ml FLUSH ASDIRECTED PRN PRN Reason: Keep Vein Open Labs: Laboratory Tests 12/09/20 Range/Units 16:21 Urine Color YELLOW Urine Appearance CLEAR Urine pH 8.0 (5.0-8.0) Ur Specific [place] 1.025 (1.001-1.035) Urine Protein NEGATIVE (NEGATIVE) mg/dL Urine Glucose (UA) NEGATIVE (NEGATIVE) mg/dL Urine Ketones NEGATIVE (NEGATIVE) mg/dL Urine Occult Blood NEGATIVE (NEGATIVE) Urine Nitrite NEGATIVE (NEGATIVE) Urine Bilirubin NEGATIVE (NEGATIVE) Urine Urobilinogen 0.2 (<2.0) EU/dL Ur Leukocyte Esterase NEGATIVE (NEGATIVE) Meds: Medications Generic Name Dose Route Start Last Admin Trade Name Freq PRN Reason Stop Dose Admin Sodium Chloride 10 ml 12/09/20 16:09 12/09/20 16:48 Sodium Chloride 0.9% 10 Ml Syringe FLUSH 10 ml ASDIRECTED PRN Administration Keep Vein Open Sodium Chloride 2.5 ml 12/09/20 16:09 Sodium Chloride 0.9% 2.5 Ml Syringe FLUSH ASDIRECTED PRN Keep Vein Open Discontinued Medications Generic Name Dose Route Start Last Admin Trade Name Freq PRN Reason Stop Dose Admin Diphenhydramine HCl 50 mg 12/09/20 16:09 12/09/20 16:45 Diphenhydramine 50 Mg/Ml Sdv IVPUSH 12/09/20 16:10 50 mg ONETIME ONE Administration Ketorolac Tromethamine 15 mg 12/09/20 16:09 12/09/20 16:57 Ketorolac 15 Mg/Ml Sdv IVPUSH 12/09/20 16:10 15 mg ONETIME ONE Administration Metoclopramide HCl 10 mg 12/09/20 16:15 12/09/20 16:51 Metoclopramide 10 Mg/2 Ml Sdv IVPUSH 12/09/20 16:16 10 mg ONETIME ONE Administration Departure - Departure Time of Disposition: 17:20 Disposition: Home, Self-Care 01 Condition: Good Clinical Impression: Migraine headache - Discharge Information Instructions: Migraine Headache, [id number] Referrals: Antelmo Millan MD [Primary Care Provider] - Belle Petit MD [Physician] - Forms: ED Department Discharge Additional Instructions: [facility] - Neurology [address], [address] [place] [address] The following information is given to patients seen in the emergency department who are being discharged to home. This information is to outline your options for follow-up care. We provide all patients seen in our emergency department with a follow-up referral. The need for follow-up, as well as the timing and circumstances, are variable depending upon the specifics of your emergency department visit. If you don't have a primary care physician on staff, we will provide you with a referral. We always advise you to contact your personal physician following an emergency department visit to inform them of the circumstance of the visit and for follow-up with them and/or the need for any referrals to a consulting specialist. The emergency department will also refer you to a specialist when appropriate. This referral assures that you have the opportunity for follow-up care with a specialist. All of these measure are taken in an effort to provide you with optimal care, which includes your follow-up. Under all circumstances we always encourage you to contact your private physician who remains a resource for coordinating your care. When calling for follow-up care, please make the office aware that this follow-up is from your recent emergency room visit. If for any reason you are refused follow-up, please contact the [facility] Emergency Department at and asked to speak to the emergency department charge nurse. Sepsis Event Note (ED) - Evaluation Sepsis Screening Result: No Definite Risk - Focused Exam Vital Signs: Vital Signs Temp Pulse Resp BP Pulse Ox 12/09/20 15:56 37.2 C 79 16 125/73 95 - My Orders Last 24 Hours: My Active Orders 12/09/20 16:09 Sodium Chloride 0.9% [Saline Flush] 10 ml FLUSH ASDIRECTED PRN Sodium Chloride 0.9% [Saline Flush] 2.5 ml FLUSH ASDIRECTED PRN Saline Lock Insert [OM.PC] Stat - Assessment/Plan Last 24 Hours: My Active Orders 12/09/20 16:09 Sodium Chloride 0.9% [Saline Flush] 10 ml FLUSH ASDIRECTED PRN Sodium Chloride 0.9% [Saline Flush] 2.5 ml FLUSH ASDIRECTED PRN Saline Lock Insert [OM.PC] Stat
[2020-12-09 17:34] VITALS: BP 103/62; PULSE 61
== END 2020-12-09 17:35 | disposition home or self-care (01) ==
LOC: MW.ED 15:20
DX: G43.909 Migraine, unspecified, not intractable, without status migrainosus (principal); I10 Essential (primary) hypertension; J45.909 Unspecified asthma, uncomplicated; M19.90 Unspecified osteoarthritis, unspecified site; E66.9 Obesity, unspecified; Z68.34 Body mass index [BMI] 34.0-34.9, adult; Z91.040 Latex allergy status; Z91.048 Other nonmedicinal substance allergy status; Z88.5 Allergy status to narcotic agent; Z88.8 Allergy status to other drugs, medicaments and biological substances; Z79.899 Other long term (current) drug therapy
CPT/HCPCS: 81003; 96374; 96375; 99283; J1200; J1885; J2765

== ENCOUNTER 2021-05-17 13:05 | Emergency (ER) | payer MEDICAID ==
[2021-05-17] MEDS ORDERED: Sodium Chloride 0.9% 10 ML Syringe FLUSH PRN (13:30)
[2021-05-17] MEDS ORDERED: Sodium Chloride 0.9% 2.5 ML Syringe FLUSH PRN (13:30)
[2021-05-17] MEDS ORDERED: Sodium Chloride 0.9% 1,000 ML IV ONE (13:31)
[2021-05-17] MEDS ORDERED: Ondansetron 4 MG/2 ML SDV IVPUSH ONE (13:31)
[2021-05-17] MEDS ORDERED: Ketorolac 30 MG/ML SDV IVPUSH ONE (13:31)
[2021-05-17] MEDS ORDERED: Albuterol/Ipratropium 3.0-0.5 MG/3 ML Neb Soln NEB ONE (13:32)
[2021-05-17 14:34] LABS: BLOOD UREA NITROGEN,BUN 4 mg/dL (7.0-18.0); CARBON DIOXIDE,CO2 26.8 mmol/L (21.0-32.0); CHLORIDE,CL 101 mmol/L (98-107); GLUCOSE RANDOM 84 mg/dL (74-106); POTASSIUM,K 4.1 mmol/L (3.5-5.1); SODIUM,NA 136 mmol/L (136-145)
[2021-05-17 15:13] LABS: CORONAVIRUS COVID-19 NAA POSITIVE (NEGATIVE); INFLUENZA A NAA NEGATIVE (NEGATIVE); INFLUENZA B NAA NEGATIVE (NEGATIVE)
[2021-05-17 17:26] VITALS: BP 108/66; PULSE 90
== END 2021-05-17 17:27 | disposition home or self-care (01) ==
LOC: MW.ED 13:05
DX: U07.1 COVID-19 (principal); I10 Essential (primary) hypertension; J45.909 Unspecified asthma, uncomplicated; E66.9 Obesity, unspecified; Z68.33 Body mass index [BMI] 33.0-33.9, adult; Z91.040 Latex allergy status; Z88.8 Allergy status to other drugs, medicaments and biological substances; Z88.5 Allergy status to narcotic agent; Z91.048 Other nonmedicinal substance allergy status; Z79.899 Other long term (current) drug therapy
CPT/HCPCS: 0240U; 36415; 71045; 71045-26; 80053; 85025; 93005; 93971-26-RT; 93971-RT; 96374; 96375; 99284-25; J1885; J2405; J7030; J7620-GY

== ENCOUNTER 2021-07-12 20:27 | Emergency (ER) | payer MEDICAID ==
[2021-07-12] MEDS ORDERED: Ondansetron 4 MG Tab.DIS PO ONE (21:31)
[2021-07-12] MEDS ORDERED: Cefdinir 300 MG Cap PO ONE (21:56)
[2021-07-12] MEDS ORDERED: Phenazopyridine 200 MG Tab PO ONE (21:57)
[2021-07-12 22:11] VITALS: BP 119/68; PULSE 97
== END 2021-07-12 22:21 | disposition home or self-care (01) ==
LOC: MW.ED 20:27
DX: N39.0 Urinary tract infection, site not specified (principal); I10 Essential (primary) hypertension; E66.9 Obesity, unspecified; Z88.8 Allergy status to other drugs, medicaments and biological substances; Z88.5 Allergy status to narcotic agent; Z91.040 Latex allergy status; Z79.899 Other long term (current) drug therapy
CPT/HCPCS: 81001; 99283; A9270

== ENCOUNTER 2021-10-14 00:21 | Emergency (ER) | payer MEDICAID ==
[2021-10-14] MEDS ORDERED: Acetaminophen 500 MG Tab PO ONE (00:23)
[2021-10-14] MEDS ORDERED: Ondansetron 4 MG Tab.DIS PO ONE (00:23)
[2021-10-14] MEDS ORDERED: Ketorolac 30 MG/ML SDV IM ONE (01:04)
[2021-10-14 01:17] VITALS: BP 126/71; PULSE 81
== END 2021-10-14 01:24 | disposition home or self-care (01) ==
LOC: MW.ED 00:21
DX: S06.9X9A Unspecified intracranial injury with loss of consciousness of unspecified duration, initial encounter (principal); E66.9 Obesity, unspecified; Z68.34 Body mass index [BMI] 34.0-34.9, adult; Z91.040 Latex allergy status; Z88.5 Allergy status to narcotic agent; Z91.048 Other nonmedicinal substance allergy status; Z88.8 Allergy status to other drugs, medicaments and biological substances; W01.198A Fall on same level from slipping, tripping and stumbling with subsequent striking against other object, initial encounter
CPT/HCPCS: 70450; 72125; 96372; 99284; A9270; J1885

== ENCOUNTER 2021-10-29 21:57 | Emergency (ER) | payer MEDICAID ==
[2021-10-29 23:15] LABS: ACETAMINOPHEN <2.0 ug/mL; BLOOD UREA NITROGEN,BUN 6 mg/dL (7.0-18.0); CARBON DIOXIDE,CO2 25.1 mmol/L (21.0-32.0); CHLORIDE,CL 104 mmol/L (98-107); ESTIMATED GFR 67 mL/min (>60); GLUCOSE RANDOM 117 mg/dL (74-106); POTASSIUM,K 3.2 mmol/L (3.5-5.1); SODIUM,NA 136 mmol/L (136-145)
[2021-11-01 20:27] VITALS: BP 112/74; PULSE 91
== END 2021-10-29 23:02 | disposition home or self-care (01) ==
LOC: MW.ED 21:57
DX: T78.40XA Allergy, unspecified, initial encounter (principal); I10 Essential (primary) hypertension; E66.9 Obesity, unspecified; Z68.37 Body mass index [BMI] 37.0-37.9, adult; Z79.899 Other long term (current) drug therapy; Z88.8 Allergy status to other drugs, medicaments and biological substances; Z88.0 Allergy status to penicillin
CPT/HCPCS: 36415; 80053; 80143; 80179; 80307; 84443; 84703; 85025; 99284

== ENCOUNTER 2021-11-09 17:59 | Observation (INO) | payer MEDICAID ==
[2021-11-09] MEDS ORDERED: Sodium Chloride 0.9% 1,000 ML IV ONE (18:33)
[2021-11-09] MEDS ORDERED: Sodium Chloride 0.9% 2.5 ML Syringe FLUSH PRN (18:33)
[2021-11-09] MEDS ORDERED: Sodium Chloride 0.9% 10 ML Syringe FLUSH PRN (18:33)
[2021-11-09] MEDS ORDERED: Ondansetron 4 MG/2 ML SDV IVPUSH ONE (18:35)
[2021-11-09 19:58] LABS: BLOOD UREA NITROGEN,BUN 10 mg/dL (7.0-18.0); CARBON DIOXIDE,CO2 26.1 mmol/L (21.0-32.0); CHLORIDE,CL 103 mmol/L (98-107); ESTIMATED GFR 75 mL/min (>60); GLUCOSE RANDOM 82 mg/dL (74-106); LIPASE 69 U/L (73-393); POTASSIUM,K 3.7 mmol/L (3.5-5.1); SODIUM,NA 137 mmol/L (136-145)
[2021-11-09] MEDS ORDERED: LORazepam 1 MG Tab PO ONE (20:26)
[2021-11-09] MEDS ORDERED: Ondansetron 4 MG/2 ML SDV IVPUSH PRN (23:52)
[2021-11-09] MEDS ORDERED: Albuterol/Ipratropium 3.0-0.5 MG/3 ML Neb Soln NEB PRN (23:52)
[2021-11-09] MEDS ORDERED: Acetaminophen 325 MG Tab PO PRN (23:52)
[2021-11-10] MEDS: Lactated Ringers 1,000 ML IV SCH ×2 (00:42→09:10)
[2021-11-10] MEDS ORDERED: traZODone 50 MG Tab ONE (01:05)
[2021-11-10] MEDS ORDERED: buPROPion 150 MG Tab.ER PO SCH (09:00)
[2021-11-10] MEDS ORDERED: CHOLECALCIFEROL 5000 UNIT PO SCH (09:00)
[2021-11-10] MEDS ORDERED: Morphine 2 MG/ML SYRINGE IVPUSH ONE (10:35)
[2021-11-10] MEDS ORDERED: Pantoprazole 40 MG in Sodium Chloride 0.9% 10 ML IVPUSH ONE (11:00)
[2021-11-10 11:55] VITALS: BP 90/51; PULSE 79
[2021-11-10] MEDS ORDERED: Sucralfate Suspension 1 GM/10 ML Cup PO ONE (14:51)
[2021-11-10] MEDS ORDERED: traZODone 50 MG Tab PO SCH (21:00)
[2021-11-10] MEDS ORDERED: hydrOXYzine Pamoate 25 MG Cap PO SCH (21:00)
== END 2021-11-10 15:35 | disposition home or self-care (01) ==
LOC: MW.ED 17:59 → MW.MS 22:33
PROVIDERS: ADMIT Student in an Organized Health Care Education/Training Program; ATTEND Student in an Organized Health Care Education/Training Program
DX: R55 Syncope and collapse (principal); R07.89 Other chest pain; I10 Essential (primary) hypertension; E11.9 Type 2 diabetes mellitus without complications; J45.909 Unspecified asthma, uncomplicated; F32.A Depression, unspecified; F41.9 Anxiety disorder, unspecified; R00.0 Tachycardia, unspecified; E66.9 Obesity, unspecified; M19.90 Unspecified osteoarthritis, unspecified site; Z87.19 Personal history of other diseases of the digestive system; Z91.52 Personal history of nonsuicidal self-harm; Z68.30 Body mass index [BMI] 30.0-30.9, adult; Z90.49 Acquired absence of other specified parts of digestive tract; Z90.710 Acquired absence of both cervix and uterus; Z98.890 Other specified postprocedural states; Z79.899 Other long term (current) drug therapy; Z79.51 Long term (current) use of inhaled steroids; Z20.822 Contact with and (suspected) exposure to COVID-19; Z91.040 Latex allergy status; Z88.5 Allergy status to narcotic agent; Z88.6 Allergy status to analgesic agent; Z88.1 Allergy status to other antibiotic agents
CPT/HCPCS: 36415; 71045; 80053; 81001; 83690; 84484; 85025; 85379; 85610; 87635; 93005; A9270; C9113; J2270; J2405; J3490; J7030; J7120; 96361; 96374; 96375; 96376; 99285-25; G0378; U0002

== ENCOUNTER 2022-07-10 15:23 | Emergency (ER) | payer MEDICAID ==
[2022-07-10] MEDS ORDERED: Sodium Chloride 0.9% 2.5 ML Syringe FLUSH PRN (15:34)
[2022-07-10] MEDS ORDERED: Sodium Chloride 0.9% 10 ML Syringe FLUSH PRN (15:34)
[2022-07-10] MEDS ORDERED: Albuterol/Ipratropium 3.0-0.5 MG/3 ML Neb Soln NEB ONE (16:00)
[2022-07-10 16:58] LABS: CORONAVIRUS COVID-19 NAA NEGATIVE (NEGATIVE); INFLUENZA A NAA NEGATIVE (NEGATIVE); INFLUENZA B NAA NEGATIVE (NEGATIVE); RESPIRATORY SYNCYTIAL VIR NAA NEGATIVE (NEGATIVE)
[2022-07-10 17:15] LABS: BLOOD UREA NITROGEN,BUN 12 mg/dL (7.0-18.0); CARBON DIOXIDE,CO2 25.2 mmol/L (21.0-32.0); CHLORIDE,CL 104 mmol/L (98-107); GLUCOSE RANDOM 104 mg/dL (74-106); POTASSIUM,K 3.8 mmol/L (3.5-5.1); SODIUM,NA 138 mmol/L (136-145)
[2022-07-10 17:17] LABS: ESTIMATED GFR 85 mL/min (>60)
[2022-07-10] MEDS ORDERED: Albuterol 8 GM Inhaler INH ONE (17:25)
[2022-07-10 17:30] VITALS: BP 112/73; PULSE 101
== END 2022-07-10 17:39 | disposition home or self-care (01) ==
LOC: MW.ED 15:23
DX: J06.9 Acute upper respiratory infection, unspecified (principal); I10 Essential (primary) hypertension; J45.909 Unspecified asthma, uncomplicated; E66.9 Obesity, unspecified; Z68.36 Body mass index [BMI] 36.0-36.9, adult; Z91.040 Latex allergy status; Z88.5 Allergy status to narcotic agent; Z91.048 Other nonmedicinal substance allergy status; Z91.09 Other allergy status, other than to drugs and biological substances; Z20.822 Contact with and (suspected) exposure to COVID-19
CPT/HCPCS: 0241U; 36415; 71045; 80053; 81001; 84484; 85025; 85379; 93005; 99285; A9270; J3490; J7620-GY

== ENCOUNTER 2022-07-16 21:44 | Emergency (ER) | payer MEDICAID ==
[2022-07-17 01:30] VITALS: BP 139/80
[2022-07-17 02:58] VITALS: PULSE 68
== END 2022-07-17 02:57 | disposition home or self-care (01) ==
LOC: MW.ED 21:44
DX: S93.401A Sprain of unspecified ligament of right ankle, initial encounter (principal); I10 Essential (primary) hypertension; J45.909 Unspecified asthma, uncomplicated; M19.90 Unspecified osteoarthritis, unspecified site; E66.9 Obesity, unspecified; Z68.36 Body mass index [BMI] 36.0-36.9, adult; Z91.040 Latex allergy status; Z91.048 Other nonmedicinal substance allergy status; Z88.5 Allergy status to narcotic agent; Z88.8 Allergy status to other drugs, medicaments and biological substances; Z79.899 Other long term (current) drug therapy; X50.1XXA Overexertion from prolonged static or awkward postures, initial encounter; Y93.39 Activity, other involving climbing, rappelling and jumping off
CPT/HCPCS: 73610-26-RT; 73610-RT; 99283

== ENCOUNTER 2022-10-26 15:15 | Emergency (ER) | payer OTHER, MEDICAID ==
[2022-10-26 15:27] VITALS: BP 114/83; PULSE 107
== END 2022-10-26 16:47 | disposition home or self-care (01) ==
LOC: MW.ED 15:15
DX: M79.675 Pain in left toe(s) (principal); I10 Essential (primary) hypertension; J45.909 Unspecified asthma, uncomplicated; E66.9 Obesity, unspecified; Z91.040 Latex allergy status; Z88.5 Allergy status to narcotic agent; Z79.84 Long term (current) use of oral hypoglycemic drugs; Z91.09 Other allergy status, other than to drugs and biological substances; Z88.8 Allergy status to other drugs, medicaments and biological substances; Z79.51 Long term (current) use of inhaled steroids; Z86.16 Personal history of COVID-19; Z68.39 Body mass index [BMI] 39.0-39.9, adult; W20.8XXA Other cause of strike by thrown, projected or falling object, initial encounter; Y92.89 Other specified places as the place of occurrence of the external cause; Y99.0 Civilian activity done for income or pay
CPT/HCPCS: 73630-26-LT; 73630-LT; 99283

== ENCOUNTER 2023-02-18 13:35 | Emergency (ER) | payer MEDICAID, OTHER ==
[2023-02-18] MEDS ORDERED: Sodium Chloride 0.9% 2.5 ML Syringe FLUSH PRN (14:23)
[2023-02-18] MEDS ORDERED: Sodium Chloride 0.9% 10 ML Syringe FLUSH PRN (14:23)
[2023-02-18 15:03] LABS: HEMATOCRIT 42.8 % (37.0-47.0); HEMOGLOBIN 14.8 g/dL (12.0-16.0); MEAN CORPUSCULAR HEMOGLOBIN 30.9 pg (28.0-32.0); MEAN CORPUSCULAR HGB CONC 34.6 g/dL (32.0-36.0); MEAN CORPUSCULAR VOLUME 89.4 fL (83.0-99.0); MEAN PLATELET VOLUME 9.4 fL (9.4-12.3); PLATELET COUNT,PLT 296 K/uL (150-400); RED BLOOD CELL COUNT 4.79 M/uL (4.10-5.30); WHITE BLOOD CELL COUNT,WBC 11.67 K/uL (3.9-11.3)
[2023-02-18 15:36] LABS: LYMPHOCYTES ABSOLUTE MAN 3.6 (0.6-2.4); LYMPHOCYTES PERCENT MAN 31 % (16.0-40.0); SEG NEUTROPHILS ABSOLUTE MAN 7.1 (1.4-5.7); SEG NEUTROPHILS PERCENT MAN 61 % (48.0-80.0)
[2023-02-18 15:37] LABS: BASOPHILS ABSOLUTE MAN 0.1 (0.0-0.1); BASOPHILS PERCENT MAN 1 % (0.0-1.5); MONOCYTES ABSOLUTE MAN 0.8 (0.0-0.8); MONOCYTES PERCENT MAN 7 % (0.0-15.0)
[2023-02-18 15:44] LABS: A/G RATIO 1.1 (0.9-1.6); ALANINE AMINOTRANSFERASE,ALT 21 IU/L (14-63); ALBUMIN 4.1 g/dL (3.4-5.0); ALKALINE PHOSPHATASE 57 U/L (46-116); ASPARTATE AMNIOTRANSFERASE,AST 13 IU/L (15-37); BILIRUBIN TOTAL 0.5 mg/dL (0.2-1.0); BLOOD UREA NITROGEN,BUN 4 mg/dL (7.0-18.0); CALCIUM 9.3 mg/dL (8.5-10.1); CARBON DIOXIDE,CO2 23.8 mmol/L (21.0-32.0); CHLORIDE,CL 102 mmol/L (98-107); EST CRCL DRUG DOSING (CG) 72.11 mL/min; GLUCOSE RANDOM 88 mg/dL (74-106); LIPASE 86 U/L (16-77); POTASSIUM,K 3.2 mmol/L (3.5-5.1); PROTEIN TOTAL,TP 7.8 g/dL (6.4-8.2); SODIUM,NA 136 mmol/L (136-145)
[2023-02-18 15:47] LABS: ESTIMATED GFR 74 mL/min (>60)
[2023-02-18] MEDS ORDERED: Prochlorperazine 10 MG/2 ML SDV IVPUSH ONE (17:57)
[2023-02-18] MEDS ORDERED: Iopamidol 755 MG/ML 500 ML Multipack Bottle IVPUSH STA (18:15)
[2023-02-18 22:55] VITALS: BP 121/85; PULSE 81
== END 2023-02-18 19:15 | disposition home or self-care (01) ==
LOC: MW.ED 13:35
DX: R07.89 Other chest pain (principal); R10.13 Epigastric pain; I10 Essential (primary) hypertension; J45.909 Unspecified asthma, uncomplicated; E66.9 Obesity, unspecified; Z68.35 Body mass index [BMI] 35.0-35.9, adult; Z86.16 Personal history of COVID-19; Z91.040 Latex allergy status; Z91.048 Other nonmedicinal substance allergy status; Z88.5 Allergy status to narcotic agent; Z91.041 Radiographic dye allergy status; Z88.8 Allergy status to other drugs, medicaments and biological substances; Z79.899 Other long term (current) drug therapy
CPT/HCPCS: 36415; 71045; 74177; 80053; 83690; 84484; 85007; 85027; 93005; 96374; 99285; J0780; J3490; Q9967; 93010; 99284

== ENCOUNTER 2023-04-14 14:26 | Emergency (ER) | payer MEDICAID ==
[2023-04-14 14:59] LABS: APPEARANCE,URINE CLEAR; BILIRUBIN,URINE NEGATIVE (NEGATIVE); COLOR,URINE YELLOW; GLUCOSE,URINE NEGATIVE (NEGATIVE); KETONES,URINE NEGATIVE (NEGATIVE); LEUKOCYTE ESTERASE,URINE SMALL (NEGATIVE); NITRITE,URINE NEGATIVE (NEGATIVE); OCCULT BLOOD,URINE SMALL (NEGATIVE); PROTEIN,URINE NEGATIVE (NEGATIVE); UROBILINOGEN,URINE 0.2 EU/dL (<2.0)
[2023-04-14 15:00] VITALS: BP 121/78; PULSE 99
[2023-04-14 15:07] LABS: BACTERIA,URINE FEW (NEGATIVE); EPITHELIAL CELLS,URINE MANY (NONE-FEW)
[2023-04-14 15:32] LABS: CORONAVIRUS COVID-19 NAA NEGATIVE (NEGATIVE); INFLUENZA A NAA POSITIVE (NEGATIVE); INFLUENZA B NAA NEGATIVE (NEGATIVE)
== END 2023-04-14 16:50 | disposition home or self-care (01) ==
LOC: MW.ED 14:26
DX: J10.1 Influenza due to other identified influenza virus with other respiratory manifestations (principal); I10 Essential (primary) hypertension; J45.909 Unspecified asthma, uncomplicated; E66.9 Obesity, unspecified; Z86.16 Personal history of COVID-19; Z79.899 Other long term (current) drug therapy; Z88.5 Allergy status to narcotic agent; Z88.8 Allergy status to other drugs, medicaments and biological substances; Z91.048 Other nonmedicinal substance allergy status; Z91.040 Latex allergy status; Z88.6 Allergy status to analgesic agent; Z68.32 Body mass index [BMI] 32.0-32.9, adult; Z20.822 Contact with and (suspected) exposure to COVID-19
CPT/HCPCS: 0240U; 81001; 81025; 87086; 87088; 87186; 99284; 99283

== ENCOUNTER 2024-02-16 16:14 | Emergency (ER) | payer MEDICAID, BC ==
[2024-02-16] MEDS ORDERED: Sodium Chloride 0.9% 2.5 ML Syringe FLUSH PRN (17:13)
[2024-02-16] MEDS ORDERED: Sodium Chloride 0.9% 10 ML Syringe FLUSH PRN (17:13)
[2024-02-16] MEDS: Alum Hydrox/Mag Hydrox/Simeth 15 ML, Lidocaine 2% 5 ML PO ONE (17:45)
[2024-02-16] MEDS: Famotidine 20 MG/2 ML SDV IVPUSH ONE (17:45)
[2024-02-16] MEDS: Sodium Chloride 0.9% 1,000 ML IV ONE (17:46)
[2024-02-16 18:01] LABS: BASOPHILS ABSOLUTE AUTO 0.09 K/uL (0.00-0.20); BASOPHILS PERCENT AUTO 0.9 % (0.0-1.0); EOSINOPHILS ABSOLUTE AUTO 0.09 K/uL (0.00-0.45); EOSINOPHILS PERCENT AUTO 0.9 % (0.0-6.0); HEMATOCRIT 40.8 % (37.0-47.0); HEMOGLOBIN 13.8 g/dL (12.0-16.0); IMMATURE GRAN ABSOLUTE AUTO 0.03 K/uL (0.00-0.05); IMMATURE GRAN PERCENT AUTO 0.3 % (0.0-0.4); LYMPHOCYTES ABSOLUTE AUTO 2.69 K/uL (1.00-4.80); MEAN CORPUSCULAR HEMOGLOBIN 30.2 pg (28.0-32.0); MEAN CORPUSCULAR HGB CONC 33.8 g/dL (32.0-36.0); MEAN CORPUSCULAR VOLUME 89.3 fL (83.0-99.0); MEAN PLATELET VOLUME 8.9 fL (9.4-12.3); MONOCYTES ABSOLUTE AUTO 0.56 K/uL (0.00-0.80); MONOCYTES PERCENT AUTO 5.8 % (0.0-8.0); NEUTROPHILS ABSOLUTE AUTO 6.16 K/uL (1.80-7.70); NEUTROPHILS PERCENT AUTO 64.1 % (41.0-71.0); PLATELET COUNT,PLT 278 K/uL (150-400); RED BLOOD CELL COUNT 4.57 M/uL (4.10-5.30); WHITE BLOOD CELL COUNT,WBC 9.62 K/uL (3.9-11.3)
[2024-02-16 18:23] LABS: A/G RATIO 1.3 (0.9-1.6); BILIRUBIN TOTAL 0.4 mg/dL (0.2-1.0); CALCIUM 8.8 mg/dL (8.5-10.1); CARBON DIOXIDE,CO2 28.4 mmol/L (21.0-32.0); EST CRCL DRUG DOSING (CG) 76.95 mL/min; MAGNESIUM 1.8 mg/dL (1.8-2.4); POTASSIUM,K 3.9 mmol/L (3.5-5.1); PROTEIN TOTAL,TP 7.2 g/dL (6.4-8.2)
[2024-02-16 19:08] VITALS: BP 117/78; PULSE 80
== END 2024-02-16 19:09 | disposition home or self-care (01) ==
LOC: MW.ED 16:14
DX: K21.9 Gastro-esophageal reflux disease without esophagitis (principal); I10 Essential (primary) hypertension; J45.909 Unspecified asthma, uncomplicated; E66.9 Obesity, unspecified; Z88.5 Allergy status to narcotic agent; Z88.8 Allergy status to other drugs, medicaments and biological substances; Z91.048 Other nonmedicinal substance allergy status; Z79.899 Other long term (current) drug therapy; Z90.49 Acquired absence of other specified parts of digestive tract; Z90.710 Acquired absence of both cervix and uterus; Z75.8 Other problems related to medical facilities and other health care; Z68.32 Body mass index [BMI] 32.0-32.9, adult
CPT/HCPCS: 36415; 80053; 83690; 83735; 85025; 96361; 96374; 99284; A9270; J3490; J7030

== ENCOUNTER 2024-03-28 11:19 | Day surgery (SDC) | payer BC, MEDICAID ==
[2024-03-28] MEDS ORDERED: Ketamine HCL/NACL, ISO-OSM 50 MG/5 ML Syringe ONE (11:31)
[2024-03-28] MEDS ORDERED: propofoL 500 MG/50 ML 50 ML ONE (11:31)
[2024-03-28] MEDS: Lactated Ringers 1,000 ML IV SCH (11:59)
[2024-03-28] MEDS ORDERED: Ondansetron 4 MG/2 ML SDV ONE (12:56)
[2024-03-28] MEDS ORDERED: Ketorolac 30 MG/ML SDV ONE (12:56)
[2024-03-28] MEDS ORDERED: Dexamethasone 4 MG/ML 5 ML MDV ONE (12:56)
[2024-03-28] MEDS ORDERED: Famotidine 20 MG/2 ML SDV ONE (12:57)
[2024-03-28] MEDS ORDERED: Propofol 200 MG/20 ML SDV ONE (13:19)
[2024-03-28] MEDS ORDERED: Lactated Ringers 1,000 ML IV SCH (14:00)
[2024-03-28 14:30] VITALS: BP 108/73; PULSE 82
== END 2024-03-28 15:10 | disposition home or self-care (01) ==
LOC: MW.SDS 11:19
PROVIDERS: ATTEND Surgery
DX: K29.50 Unspecified chronic gastritis without bleeding (principal); K31.7 Polyp of stomach and duodenum; J45.909 Unspecified asthma, uncomplicated; F32.A Depression, unspecified; F41.9 Anxiety disorder, unspecified; I10 Essential (primary) hypertension; K21.9 Gastro-esophageal reflux disease without esophagitis; Z79.899 Other long term (current) drug therapy; Z88.0 Allergy status to penicillin; Z91.040 Latex allergy status
CPT/HCPCS: 43239; 45378; J1100; J1885; J2405; J2704; J3490; J7120

== ENCOUNTER 2024-07-22 16:04 | Emergency (ER) | payer BC, MEDICAID ==
[2024-07-22] MEDS ORDERED: Sodium Chloride 0.9% 2.5 ML Syringe FLUSH PRN (16:36)
[2024-07-22] MEDS ORDERED: Sodium Chloride 0.9% 10 ML Syringe FLUSH PRN (16:36)
[2024-07-22 16:44] LABS: APPEARANCE,URINE SLT CLOUDY; BILIRUBIN,URINE NEGATIVE (NEGATIVE); COLOR,URINE YELLOW; GLUCOSE,URINE NEGATIVE (NEGATIVE); KETONES,URINE NEGATIVE (NEGATIVE); LEUKOCYTE ESTERASE,URINE SMALL (NEGATIVE); NITRITE,URINE NEGATIVE (NEGATIVE); OCCULT BLOOD,URINE MODERATE (NEGATIVE); PROTEIN,URINE NEGATIVE (NEGATIVE); UROBILINOGEN,URINE 0.2 EU/dL (<2.0)
[2024-07-22 16:47] LABS: BASOPHILS ABSOLUTE AUTO 0.09 K/uL (0.00-0.20); BASOPHILS PERCENT AUTO 0.6 % (0.0-1.0); EOSINOPHILS ABSOLUTE AUTO 0.15 K/uL (0.00-0.45); EOSINOPHILS PERCENT AUTO 1.1 % (0.0-6.0); HEMATOCRIT 42.7 % (37.0-47.0); HEMOGLOBIN 14.7 g/dL (12.0-16.0); IMMATURE GRAN ABSOLUTE AUTO 0.04 K/uL (0.00-0.05); IMMATURE GRAN PERCENT AUTO 0.3 % (0.0-0.4); LYMPHOCYTES ABSOLUTE AUTO 2.88 K/uL (1.00-4.80); LYMPHOCYTES PERCENT AUTO 20.6 % (24.0-44.0); MEAN CORPUSCULAR HEMOGLOBIN 31.1 pg (28.0-32.0); MEAN CORPUSCULAR HGB CONC 34.4 g/dL (32.0-36.0); MEAN CORPUSCULAR VOLUME 90.3 fL (83.0-99.0); MEAN PLATELET VOLUME 8.9 fL (9.4-12.3); MONOCYTES ABSOLUTE AUTO 0.67 K/uL (0.00-0.80); MONOCYTES PERCENT AUTO 4.8 % (0.0-8.0); NEUTROPHILS ABSOLUTE AUTO 10.12 K/uL (1.80-7.70); NEUTROPHILS PERCENT AUTO 72.6 % (41.0-71.0); PLATELET COUNT,PLT 294 K/uL (150-400); RED BLOOD CELL COUNT 4.73 M/uL (4.10-5.30); WHITE BLOOD CELL COUNT,WBC 13.95 K/uL (3.9-11.3)
[2024-07-22 16:56] LABS: BACTERIA,URINE 1+ (NEGATIVE); EPITHELIAL CELLS,URINE MANY (NONE-FEW)
[2024-07-22] MEDS: Ondansetron 4 MG/2 ML SDV IVPUSH STA (16:57)
[2024-07-22] MEDS: Ketorolac 30 MG/ML SDV IVPUSH STA (16:57)
[2024-07-22] MEDS: Sodium Chloride 0.9% 1,000 ML IV STA ×2 (16:57→18:22)
[2024-07-22 17:10] LABS: A/G RATIO 1.1 (0.9-1.6); BILIRUBIN TOTAL 0.5 mg/dL (0.2-1.0); CALCIUM 8.7 mg/dL (8.5-10.1); CARBON DIOXIDE,CO2 28.2 mmol/L (21.0-32.0); CREATININE 1.1 mg/dL (0.6-1.0); EST CRCL DRUG DOSING (CG) 64.92 mL/min; MAGNESIUM 1.2 mg/dL (1.8-2.4); POTASSIUM,K 3.5 mmol/L (3.5-5.1); PROTEIN TOTAL,TP 7.6 g/dL (6.4-8.2)
[2024-07-22] MEDS: Magnesium Oxide 400 MG Tab PO STA (18:21)
[2024-07-22] MEDS: Magnesium Sulf/Wat 2 GM/50 mL 2 GM in Premix Bag 1 BAG IV STA (18:22)
[2024-07-22] MEDS: Iopamidol 755 MG/ML 500 ML Multipack Bottle IVPUSH STA (18:46)
[2024-07-22] MEDS: traMADol 50 MG Tab PO STA (19:38)
[2024-07-22 20:35] VITALS: BP 103/55; PULSE 89
== END 2024-07-22 20:35 | disposition home or self-care (01) ==
LOC: MW.ED 16:04
DX: E83.42 Hypomagnesemia (principal); R10.31 Right lower quadrant pain; M54.50 Low back pain, unspecified; I10 Essential (primary) hypertension; Z91.040 Latex allergy status; Z91.048 Other nonmedicinal substance allergy status; Z88.5 Allergy status to narcotic agent; Z79.899 Other long term (current) drug therapy; Z79.51 Long term (current) use of inhaled steroids; Z79.85 Long-term (current) use of injectable non-insulin antidiabetic drugs; Z90.49 Acquired absence of other specified parts of digestive tract
CPT/HCPCS: 36415; 74177; 80053; 81001; 83690; 83735; 84703; 85025; 87086; 87324; 96361; 96365; 96375; 99284; A9270; J1885; J2405; J3475; J7030; Q9967; 72131-26

== ENCOUNTER 2024-11-15 18:38 | Emergency (ER) | payer MEDICAID, BC ==
[2024-11-15 19:21] LABS: APPEARANCE,URINE CLEAR; GLUCOSE,URINE NEGATIVE (NEGATIVE); OCCULT BLOOD,URINE TRACE-INTACT (NEGATIVE)
[2024-11-15 19:30] LABS: EPITHELIAL CELLS,URINE FEW (NONE-FEW)
[2024-11-15 19:31] LABS: AMPHETAMINES SCREEN, URINE PRESUMPTIVE POSITIVE (CUTOFF=500); BUPRENORPHINE SCREEN,URINE NEGATIVE (CUTOFF=10); METHADONE SCREEN, URINE NEGATIVE (CUTOFF=200); METHAMPHETAMINES SCREEN, URINE NEGATIVE (CUTOFF=500); OXYCODONE SCREEN,URINE NEGATIVE (CUT0FF=100); PCP SCREEN,URINE NEGATIVE (CUTOFF=25); THC SCREEN,URINE 20 NG/ML NEGATIVE (CUTOFF=50)
[2024-11-15 19:33] LABS: BASOPHILS ABSOLUTE AUTO 0.07 K/uL (0.00-0.20); BASOPHILS PERCENT AUTO 0.9 % (0.0-1.0); EOSINOPHILS ABSOLUTE AUTO 0.06 K/uL (0.00-0.45); EOSINOPHILS PERCENT AUTO 0.8 % (0.0-6.0); IMMATURE GRAN ABSOLUTE AUTO 0.02 K/uL (0.00-0.05); IMMATURE GRAN PERCENT AUTO 0.3 % (0.0-0.4); LYMPHOCYTES ABSOLUTE AUTO 2.13 K/uL (1.00-4.80); LYMPHOCYTES PERCENT AUTO 27.0 % (24.0-44.0); MEAN PLATELET VOLUME 9.0 fL (9.4-12.3); MONOCYTES ABSOLUTE AUTO 0.40 K/uL (0.00-0.80); MONOCYTES PERCENT AUTO 5.1 % (0.0-8.0); NEUTROPHILS ABSOLUTE AUTO 5.22 K/uL (1.80-7.70); NEUTROPHILS PERCENT AUTO 65.9 % (41.0-71.0); NRBC ABSOLUTE 0.00 K/uL (0.00-0.02); NRBC PERCENT 0.0 /100WBC (0.0-0.2); PLATELET COUNT,PLT 268 K/uL (150-400); RED BLOOD CELL COUNT 4.48 M/uL (4.10-5.30); WHITE BLOOD CELL COUNT,WBC 7.90 K/uL (3.9-11.3)
[2024-11-15 19:59] LABS: A/G RATIO 1.3 (0.9-1.6); ALANINE AMINOTRANSFERASE,ALT 24 IU/L (14-63); ASPARTATE AMNIOTRANSFERASE,AST 22 IU/L (15-37); BILIRUBIN TOTAL 0.6 mg/dL (0.2-1.0); BLOOD UREA NITROGEN,BUN 5 mg/dL (7.0-18.0); CARBON DIOXIDE,CO2 28.2 mmol/L (21.0-32.0); CHLORIDE,CL 102 mmol/L (98-107); CREATININE 1.0 mg/dL (0.6-1.0); ETHANOL BLOOD MEDICAL <3 mg/dL; GLUCOSE RANDOM 72 mg/dL (74-106); POTASSIUM,K 3.6 mmol/L (3.5-5.1); PROTEIN TOTAL,TP 7.2 g/dL (6.4-8.2); SODIUM,NA 137 mmol/L (136-145)
[2024-11-15 20:00] LABS: ESTIMATED GFR 73 mL/min (>60)
[2024-11-15] MEDS: diphenhydrAMINE 50 MG/ML SDV IVPUSH ONE (20:30)
[2024-11-15] MEDS: Ketorolac 30 MG/ML SDV IVPUSH ONE (20:30)
[2024-11-15] MEDS: Prochlorperazine 10 MG/2 ML SDV IVPUSH ONE (20:30)
[2024-11-15 20:38] VITALS: BP 113/71; PULSE 76
== END 2024-11-15 20:37 | disposition home or self-care (01) ==
LOC: MW.ED 18:38
DX: K59.00 Constipation, unspecified (principal); G43.909 Migraine, unspecified, not intractable, without status migrainosus; I10 Essential (primary) hypertension; K21.9 Gastro-esophageal reflux disease without esophagitis; Z90.49 Acquired absence of other specified parts of digestive tract; Z75.3 Unavailability and inaccessibility of health-care facilities; Z91.040 Latex allergy status; Z91.048 Other nonmedicinal substance allergy status; Z88.8 Allergy status to other drugs, medicaments and biological substances; Z88.5 Allergy status to narcotic agent; Z79.899 Other long term (current) drug therapy; Z79.51 Long term (current) use of inhaled steroids
CPT/HCPCS: 36415; 70450; 74018; 80053; 80305; 80307; 81001; 81025; 83690; 83735; 85025; 96360; 99284; A9270; J7030